=== PATIENT | female | born 1955 | race Caucasian/White ===

== ENCOUNTER 2018-12-21 08:51 | Inpatient (IN) | payer OTHER ==
[2018-12-20 10:06] LABS: BASOPHILS # (AUTO) 0.1 (0.0-0.1); BASOPHILS % 0.9 % (0.0-1.0); EOSINOPHILS # (AUTO) 0.2 (0.0-0.4); EOSINOPHILS % 1.8 % (0.0-6.0); HEMATOCRIT 43.9 % (34.2-44.1); HEMOGLOBIN 14.4 g/dL (12.0-16.0); LYMPHOCYTES # (AUTO) 2.6 (1.0-3.2); LYMPHOCYTES % 23.3 % (18.0-39.1); MEAN CORPUSCULAR HEMOGLOBIN 30.6 pg (28-32); MEAN CORPUSCULAR HGB CONC 32.8 g/dL (31-35); MEAN CORPUSCULAR VOLUME 93.2 fL (81-99); MONOCYTES # (AUTO) 0.5 (0.2-0.8); MONOCYTES % 4.9 % (4.4-11.3); NEUTROPHILS # (AUTO) 7.5 (2.1-6.9); NEUTROPHILS % 68.6 % (38.7-80.0); PLATELET COUNT 239 x10e3/uL (140-360); RED BLOOD COUNT 4.71 x10e6/uL (3.6-5.1); RED CELL DISTRIBUTION WIDTH 13.8 % (11.7-14.4)
[2018-12-20 10:25] LABS: ANION GAP 13.5 mmol/L (8-16); BLOOD UREA NITROGEN 18 mg/dL (7-26); BUN/CREATININE RATIO 21 (6-25); CALCIUM 10.8 mg/dL (8.4-10.2); CARBON DIOXIDE 27 mmol/L (22-29); CHLORIDE 103 mmol/L (98-107); CREATININE, SERUM 0.87 mg/dL (0.57-1.11); EST GLOMERULAR FILTRATION RATE > 60 ML/MIN (60-); GLUCOSE 110 mg/dL (74-118); POTASSIUM 4.5 mmol/L (3.5-5.1); SODIUM 139 mmol/L (136-145)
--- NOTE | 2018-12-20 10:35 | Diagnostic Imaging Report ---
EXAMINATION: CHEST 2 VIEWS INDICATION: Pre-op COMPARISON: None FINDINGS: TUBES and LINES: None. LUNGS: Lungs are moderately inflated. Lungs are clear. There is no evidence of pneumonia or pulmonary edema. PLEURA: No pleural effusion or pneumothorax. HEART AND MEDIASTINUM: The cardiomediastinal silhouette is unremarkable. There are atherosclerotic calcifications within the aorta. BONES AND SOFT TISSUES: No acute osseous abnormality. UPPER ABDOMEN: No free air under the diaphragm. IMPRESSION: No acute radiographic abnormality. Signed by: Dr. Vidal España MD on 12/20/2018 10:32 AM
[~2018-12-21] VITALS: Ht 165.1 cm; Wt 103.9 kg
[~2018-12-21 08:51] MED LIST: COQ-10100 MG PO; LOSARTAN POTAS100 MG PO; METFORMIN HCL500 MG PO; VITAMIN D31000 UNIT PO
--- OUTSIDE RECORDS SUMMARY | 2018-12-21 08:52 | XMS REPORT ---
Author Author [facility] Address Unknown Phone Unavailable Care Team Providers Care Zoning Engineer Name Role Phone Ky LEMON Unavailable Unavailable Problems This patient has no known problems. Allergies, Adverse Reactions, Alerts This patient has no known allergies or adverse reactions. Medications This patient has no known medications. Encounters Start Date/Time End Date/Time Encounter Type Admission Type Attending Clinicians Care Facility Care Department Encounter ID 2018-12-06 13:13:00 2018-12-06 13:13:00 Outpatient [facility] [id number] Results Test Description Test Time Test Comments Text Results Atomic Results Result Comments CHEST 2 VIEWS 2018-12-20 10:26:00 [place] [address] Patient Name: ANA PALMER MR #: [id number] : 1955 Age/Sex: 63/F Req #: [id number] Adm Physician: Ordered by: SHANNAN LEMON MD Report #: [id number] Location: OR Room/Bed: Procedure: [id number] DX/CHEST 2 VIEWS Exam Date: 12/20/18 Exam Time: 939 REPORT STATUS: Signed EXAMINATION: CHEST 2 VIEWS INDICATION: Pre-op COMPARISON: None FINDINGS: TUBES and LINES: None. LUNGS: Lungs are moderately inflated. Lungs are clear. There is no evidence of pneumonia or pulmonary edema. PLEURA: No pleural effusion or pneumothorax. HEART AND MEDIASTINUM: The cardiomediastinal silhouette is unremarkable. There are atherosclerotic calcifications within the aorta. BONES AND SOFT TISSUES: No acute osseous abnormality. UPPER ABDOMEN: No free air under the diaphragm. IMPRESSION: No acute radiographic abnormality. Signed by: Dr. Franchesca Gaytan MD on 12/20/2018 10:32 AM Dictated By: FRANCHESCA GAYTAN MD 1032 Transcribed By: MAYA on 12/20/18 1032 COPY TO: SHANNAN LEMON MD
[2018-12-21] MEDS ORDERED: TYLENOL EXTRA500 MG PF (09:27)
[2018-12-21] MEDS ORDERED: BUPIVACAINE 0.25%/EPI 30ML SDV INJ ONE (14:17)
[2018-12-21] MEDS ORDERED: PROPOFOL IV EMULSION 10 MG/ML 20 ML VIAL ONE (17:28)
[2018-12-21] MEDS ORDERED: ROCURONIUM BROMIDE 10 MG/ML 5ML VIAL ONE (17:28)
[2018-12-21] MEDS ORDERED: GLYCOPYRROLATE INJ 1MG/ 5 ML SYR ONE (17:28)
[2018-12-21] MEDS ORDERED: ACETAMINOPHEN 1000 MG/100 ML IV ONE (17:28)
[2018-12-21] MEDS ORDERED: KETOROLAC TROMETHAMINE 30 MG/ML VIAL ONE (17:28)
[2018-12-21] MEDS ORDERED: ONDANSETRON HCL INJ 2MG/ML 2ML 2 MG/ML VIAL ONE (17:28)
[2018-12-21] MEDS ORDERED: SEVOFLURANE INHAL SOLN 250 ML PEN BTL ONE (17:28)
[2018-12-21] MEDS ORDERED: LIDOCAINE HCL 2% LOCAL INJ 5 ML SDV VIAL INJ ONE (17:28)
[2018-12-21] MEDS ORDERED: NEOSTIGMINE 5 MG/5ML SYR ONE (17:28)
[2018-12-21] MEDS ORDERED: DEXAMETHASONE SOD PHOS INJ 4 MG/ML VIAL ONE (17:28)
[2018-12-21] MEDS ORDERED: ACETAMINOPHEN 1000 MG/100 ML 100 ML IV ONE (17:55)
[2018-12-21] MEDS ORDERED: SODIUM CHLORIDE 0.9% 1000ML 1,000 ML IV SCH (18:12)
[2018-12-21] MEDS ORDERED: ONDANSETRON HCL INJ 2MG/ML 2ML 2 MG/ML VIAL IV PRN ×2 (18:15)
[2018-12-21] MEDS ORDERED: NALOXONE HCL INJ 0.4 MG/ML AMP IV PRN ×2 (18:15→20:15)
[2018-12-21] MEDS ORDERED: ACETAMINOPHEN 1000 MG/100 ML IV PRN (18:15)
[2018-12-21] MEDS ORDERED: PANTOPRAZOLE 40 MG 10ML VIAL IV SCH (18:15)
[2018-12-21] MEDS ORDERED: HYDROMORPHONE 2MG/ML 2 MG/ML ML ONE (18:33)
[2018-12-21] MEDS ORDERED: HYDROMORPHONE 0.2MG/ML-SOD CHL 30ML PCA SYRINGE IV ONE (19:00)
--- NOTE | 2018-12-21 19:32 | NUR ---
RECEIVED PATIENT AAOX3, 2L/NC, RR EVEN AND UNLABORED. ABD DRSG C/D/I DIMA DRAIN INTACT, DRAINING. ABD BINDER IN PLACE. SCD'S ON. RIGHT HAND 20G IVF @ 100. SAWYER CORK SLABS PUMP, PAIN CONTROL BUTTON WITHIN EASY REACH. WADE DRAINING TO GRAVITY, CLEAR AND YELLOW URINE. BED LOCKED AND IN LOWEST POSITION, CALL LIGHT WITHIN EASY REACH. OR NURSE TO NOTIFY FAMILY OF PATIENT ROOM #. AT THIS TIME NO NEEDS VOICED. WILL CONTINUE TO MONITOR THE PATIENT CLOSELY.
[2018-12-21] MEDS ORDERED: ATIVAN0.5 MG PO (21:41)
[2018-12-21] MEDS: CEFAZOLIN SOD 1 GM/NS 50ML 50 ML IV SCH (21:45)
[2018-12-21] MEDS: SODIUM CHLORIDE 0.9% 1000ML 1,000 ML IV SCH (21:45)
[2018-12-21] MEDS: PANTOPRAZOLE 40 MG 10ML VIAL IV SCH (21:45)
[2018-12-21] MEDS: ONDANSETRON HCL INJ 2MG/ML 2ML 2 MG/ML VIAL IV PRN (21:46)
[2018-12-21 21:48] VITALS: BP 122/62
--- NOTE | 2018-12-21 23:20 | Operative Report ---
DATE OF PROCEDURE: 12/21/2018 SURGEON: Guilherme Hoskins MD PREOPERATIVE DIAGNOSIS: Large lower abdominal ventral hernia. POSTOPERATIVE DIAGNOSIS: Large lower abdominal ventral hernia. OPERATION PERFORMED: Exploratory laparotomy, extensive lysis of adhesions, repair of recurrent complex ventral hernia with mesh. SUPERVISOR BRIAR SHOP: COLLINS Toth. ANESTHESIA: General endotracheal. COMPLICATIONS: None. ESTIMATED BLOOD LOSS: 100 mL. DESCRIPTION OF PROCEDURE: With the patient lying in bed in the supine position under good general endotracheal anesthesia, the abdomen was prepped with Betadine solution and draped in the usual manner. A lower midline abdominal incision was made and it was carried down through the subcutaneous tissue and immediately some scarring was found at the midline for the patient's previous surgeries. There was a large bulging hernia on the right side. There were multiple defects extending from the midline all the way laterally encompassing the whole length of the right side of the Pfannenstiel incision. The fascia was then dissected all the way around all the defects in a circumferential fascia and normal fascia was identified all the way around. After this was done, the largest of the hernia sacs was opened and this was totally plastered inside with the bowel and adhesions to the abdominal wall. This took over an hour to slowly and carefully be able to separate all the bowel from the abdominal wall and the hernia sac. There was also a lot of intraabdominal adhesions with the bowel being stuck to the bladder and we had to free up this whole thing in noted to be able to do the repair of the hernia. Although the bowel was slowly and carefully and once this was done, we had circumferential access intraabdominally and also the abdominal wall level. We were able to clearly see the whole right side of the right lower quadrant and it was totally blown down. The patient's fascia was totally attenuated all the way around with the upper abdominal fascia being extremely thin. We decided that the only way to repair this would be to put an intraabdominal mesh as there was no other way to reinforce the fascia. Primary closure would be a total failure as the tissues were extremely thinned out. At this point, a 12 x 15 cm Physiomesh was then placed intraabdominally and tacked with the six corners with #1 Prolene suture to totally anchor it to the full thickness of the abdominal wall all the way around and we were very careful to stay away from the bowel and the bladder. After this was done, the Tacker was used to finish tacking the skirt of the mesh all the way around and once this was completed, the abdominal wall was then approximated primarily with a running suture of #1 Prolene thus closing the defect completely. The whole area was thoroughly irrigated. Perfect hemostasis was ascertained and a 10 flat Jovanni-Hudson drain was then brought out through the left lower quadrant incision to drain the cavity of the subcutaneous tissue and the subcutaneous tissue was then approximated with interrupted sutures of 2-0 Vicryl and the skin was closed with interrupted vertical mattress sutures of 3-0 nylon and gabino. Dressings were applied. The sponge, lap, and needle count was correct. The patient tolerated the procedure well and returned to the recovery room in stable condition. MD WINNIE Garnett/ANISH /[id number]
[2018-12-21 23:23] VITALS: BP 122/62
[2018-12-22] VITALS (8 sets, daily range): BP systolic 101–142; BP diastolic 54–65
[2018-12-22] MEDS ORDERED: INSULIN REGULAR, HUMAN 100 UNIT/1 ML 3ML VIAL SQ SCH
[2018-12-22] MEDS: ONDANSETRON HCL INJ 2MG/ML 2ML 2 MG/ML VIAL IV PRN ×3 (04:53→14:40)
[2018-12-22 05:26] LABS: BASOPHILS % 0.2 % (0.0-1.0); EOSINOPHILS % 0.1 % (0.0-6.0); HEMATOCRIT 38.8 % (34.2-44.1); HEMOGLOBIN 12.7 g/dL (12.0-16.0); LYMPHOCYTES # (AUTO) 1.7 (1.0-3.2); LYMPHOCYTES % 10.3 % (18.0-39.1); MEAN CORPUSCULAR HEMOGLOBIN 30.5 pg (28-32); MEAN CORPUSCULAR HGB CONC 32.7 g/dL (31-35); MONOCYTES # (AUTO) 1.1 (0.2-0.8); MONOCYTES % 6.7 % (4.4-11.3); NEUTROPHILS # (AUTO) 13.7 (2.1-6.9); NEUTROPHILS % 82.3 % (38.7-80.0); PLATELET COUNT 263 x10e3/uL (140-360); RED BLOOD COUNT 4.17 x10e6/uL (3.6-5.1); RED CELL DISTRIBUTION WIDTH 13.6 % (11.7-14.4)
[2018-12-22 05:44] LABS: ANION GAP 14.8 mmol/L (8-16); BLOOD UREA NITROGEN 19 mg/dL (7-26); BUN/CREATININE RATIO 22 (6-25); CALCIUM 8.7 mg/dL (8.4-10.2); CARBON DIOXIDE 24 mmol/L (22-29); CHLORIDE 103 mmol/L (98-107); CREATININE, SERUM 0.87 mg/dL (0.57-1.11); EST GLOMERULAR FILTRATION RATE > 60 ML/MIN (60-); GLUCOSE 137 mg/dL (74-118); POTASSIUM 4.8 mmol/L (3.5-5.1); SODIUM 137 mmol/L (136-145)
[2018-12-22] MEDS: INSULIN REGULAR, HUMAN 100 UNIT/1 ML 3ML VIAL SQ SCH ×4 (06:00→18:00)
[2018-12-22] MEDS: CEFAZOLIN SOD 1 GM/NS 50ML 50 ML IV SCH (06:15)
[2018-12-22] MEDS: SODIUM CHLORIDE 0.9% 1000ML 1,000 ML IV SCH ×2 (06:15→16:45)
[2018-12-22] MEDS: HYDROMORPHONE 0.2MG/ML-SOD CHL 30ML PCA SYRINGE IV PRN ×2 (06:15→19:26)
--- NOTE | 2018-12-22 07:00 | NUR ---
bedside rounds complete no distress noted, updated on poc voiced understanding, denies pain at this time, phlebotomy specialist on demand tor hand 20g, dsg to abdomen with binder in place, jing drain with serous fluid noted, call light in reach will continue to monitor
--- OUTSIDE RECORDS SUMMARY | 2018-12-22 09:09 | XMS REPORT | Continuity of Care Document ---
Author Author [facility] Interface Address Unknown Phone Unavailable Problems Problem Status Onset Date Classification Date Reported Comments Source PAIN TO LEFT UPPER ARM Active 12/06/2018 [facility] VOMITING, DIARRHEA, ABDOMINAL PAIN, ABNO Active 11/23/2018 [facility] SMALL BOWEL OBSTRUCTION, HERNIA, VENTRAL Active 11/23/2018 [facility] PAIN LEFT SIDE Active 07/16/2018 [facility] E78.00 Active 06/12/2017 [facility] Discharge Diagnosis: Ureterolithiasis 03/29/2017 04/01/2017 [facility] Discharge Diagnosis: Frequency-urgency syndrome 03/29/2017 04/01/2017 [facility] R10.84;K43.9;K80.20 Active 03/01/2017 [facility] R10.11 RIGHT UPPER QUADRANT PAIN Active 10/14/2016 [facility] R10.11 RUQ PAIN, R10.13 EPIGASTRIC PAIN Active 09/09/2016 [facility] R10.11,R10.13 Active 09/09/2016 [facility] ABDOMINAL WALL MASS Active 03/10/2015 [facility] V72.84 PRE-OPERATIVE EXAM 401.1 HYPERTEN Active 01/01/2014 [facility] Hypercholesterolemia Active Problem 12/04/2018 [facility] Family history of heart disease Active Problem 12/04/2018 [facility] Type 2 diabetes mellitus with hyperglycemia, without long-term current use of insulin Active Problem 12/04/2018 [facility] Mild major depression Active Problem 12/04/2018 [facility] Psychological stress Active Problem 12/04/2018 [facility] Abdominal wall hernia Active Problem 12/04/2018 [facility] Cholelithiasis without cholangitis Active Problem 06/06/2017 [facility] Essential hypertension Active Problem 12/04/2018 [facility] Fatty liver disease, nonalcoholic Active Problem 12/04/2018 [facility] Symptomatic varicose veins, bilateral Active Problem 12/04/2018 [facility] Non morbid obesity due to excess calories Active Problem 12/04/2018 [facility] Chronic cough Active Diagnosis 02/07/2017 [facility] Dysfunctional gallbladder Active Diagnosis 02/07/2017 [facility] Type 2 diabetes mellitus without complication, without long-term current use of insulin Active Problem 02/28/2018 [facility] Symptomatic varicose veins of both lower extremities Active Problem 02/28/2018 [facility] Generalized abdominal pain Active Diagnosis 03/03/2017 [facility] BMI 38.0-38.9,adult Active Diagnosis 08/28/2018 [facility] Seborrheic keratosis Active Diagnosis 08/28/2018 [facility] Vaccine counseling Active Diagnosis 08/28/2018 [facility] BMI 39.0-39.9,adult Active Diagnosis 09/09/2017 [facility] Nasopharyngitis Active Diagnosis 04/01/2017 [facility] Cough Active Diagnosis 04/01/2017 [facility] Obesity Unspecified Active Problem 09/05/2014 [facility] Dyslipidemia Active Problem 09/05/2014 [facility] Hypertension Active Problem 09/05/2014 [facility] Prediabetes Active Diagnosis 09/21/2013 [facility] Morbid obesity due to excess calories Active Problem 03/16/2018 [facility] Deficiency D Active Problem 09/05/2014 [facility] Family History Diabetes Active Problem 09/05/2014 [facility] Diabetes Controlled, Type 2 Active Problem 09/05/2014 [facility] Family History of Heart Disease Active Problem 09/05/2014 [facility] Abdominal Pain, Lower LT Active Diagnosis 03/12/2013 [facility] Fatty Liver Active Problem 09/05/2014 [facility] Vitamin D deficiency Active Diagnosis 03/26/2014 [facility] Noncompliance Active Diagnosis 09/04/2014 [facility] Physical, Preoperative Unspecified Active Diagnosis 09/21/2013 [facility] BMI 38.0-38.9,adult Active Diagnosis 03/07/2014 [facility] Foot callus Active Diagnosis 03/07/2014 [facility] Pre-operative examination Active Diagnosis 01/03/2014 [facility] BMI 39.0-39.9,adult Active Diagnosis 01/03/2014 [facility] Diabetes mellitus, controlled Active Diagnosis 01/28/2016 [facility] Coronadol[facility] Hypercholesterolemia Active Diagnosis 09/01/2016 [facility] [place] Morbid obesity Active Problem 01/13/2016 [facility] Family history of diabetes mellitus Active Problem 01/13/2016 [facility] Depression Active Problem 09/11/2016 [facility] H/O noncompliance with medical treatment, presenting hazards to health Active Diagnosis 06/16/2015 [facility] Diabetes mellitus with hyperglycemia Active Problem 09/11/2016 [facility] Glossitis Active Diagnosis 01/13/2016 [facility] [place] Suprapubic pain Active Diagnosis 11/26/2015 [facility] [place] LLQ abdominal pain Active Diagnosis 11/26/2015 [facility] Mic [place] Pharyngitis Active Diagnosis 12/22/2015 [facility] Mick[facility] Muscle spasm Active Diagnosis 03/29/2016 [facility] Mick[facility] Acute UTI Active Diagnosis 03/29/2016 [facility] Mic [place] Back pain Active Diagnosis 03/29/2016 [facility] [place] Anxiety Active Diagnosis 03/29/2016 [facility] [place] Pure hypercholesterolemia Active Problem 09/11/2016 [facility] [place] Midepigastric pain Active Diagnosis 09/10/2016 [facility] Ha[facility] [place] RUQ pain Active Diagnosis 09/10/2016 [facility] Ha[facility] [place] RUQ abdominal pain Active Diagnosis 10/15/2016 [facility] Mci [place] Periumbilical pain Active Diagnosis 11/29/2018 [facility] Mickatherine [facility] Abdominal cramping Active Diagnosis 11/29/2018 [facility] Haile [place] Hypertension Resolved Problem 12/09/2018 [facility] Diabetes Resolved Problem 12/09/2018 [facility] IBS (<span ID="[id number]</span>) Resolved Problem 12/09/2018 [facility] Morbid obesity Active Problem 12/09/2018 [facility] EPIGASTRIC PAIN Active [facility] RIGHT UPPER QUADRANT PAIN Active [facility] PURE HYPERCHOLESTEROLEMIA, UNSPECIFIED Active [facility] GENERALIZED ABDOMINAL PAIN Active [facility] VENTRAL HERNIA WITHOUT OBSTRUCTION OR GA Active [facility] CALCULUS OF GALLBLADDER W/O CHOLECYSTITI Active [facility] UNSP INTESTNL OBST, UNSP TO PARTIAL V Active [facility] PAIN IN LEFT UPPER ARM Active [facility] Medications Medication Details Route Status Patient Instructions Ordering Provider Order Date Source phenol 1 spray, Route: TOP, BID, Drug form: SPRY, PRN Sore Throat, Start date: 11/24/18 15:23:00 CDT, Duration: 5 day, Stop date: 11/29/18 15:22:00 CDTNotes: Chloraseptic [place] (Same as: Chloraseptic, Sore Throat [place]) WASTE: F/P - Black; E - Municipal Trash Bin No Longer Active 11/24/2018 [facility] Ativan 0.5 mg, 0.25 mL, Route: IVP, Drug form: INJ, ONCE, Dosing Weight 76.364, kg, PRN Anxiety, Start date: 11/24/18 11:15:00 CDTNotes: (Same as: Ativan) Inactive 11/24/2018 [facility] Insulin Lispro 5 unit, 0.05 mL, Route: SUB-Q, Drug form: SOLN, TID-Before Meals, Dosing Weight 76.364, kg, PRN Blood Glucose Results, Start date: 11/24/18 9:38:00 CDT, Duration: 30 day, Stop date: 12/24/18 9:37:00 CDTNotes: (Same as: Humalog ) Roll in palms of hands gently; Do not shake `vigorously. "Single Patient Use Only " WASTE: F/P - Black; E - Municipal Trash Bin Stable for 28 days at room temperature. Expires in days from Date No Longer Active 11/24/2018 [facility] Dextrose 50% Syringe 25 gm, 50 mL, Route: IVP, Drug Form: INJ, Dosing Weight 76.364, kg, PRN, PRN Blood Glucose Results, Start date: 11/24/18 9:38:00 CDT, Duration: 30 day, Stop date: 12/24/18 9:37:00 CDT No Longer Active 11/24/2018 [facility] Glucagon 1 mg, Route: IM, Drug form: PDR/INJ, PRN, Dosing Weight 76.364, kg, PRN Blood Glucose Results, Start date: 11/24/18 9:38:00 CDT, Duration: 30 day, Stop date: 12/24/18 9:37:00 CDT No Longer Active 11/24/2018 [facility] D5LR 1,000 mL 1,000 mL, Rate: 75 ml/hr, Infuse over: 13.3 hr, Route: IV, Dosing Weight 76.364 kg, Total Volume: 1,000, Start date: 11/24/18 9:33:00 CDT, Duration: 30 day, Stop date: 12/24/18 9:32:00 CDT, 1.88, m2 No Longer Active 11/24/2018 [facility] Pepcid 20 mg, 2 mL, Route: IVPB, Drug form: INJ, Q12H, Dosing Weight 76.364, kg, Start date: 11/24/18 9:00:00 CDT, Duration: 5 day, Stop date: 11/28/18 21:00:00 CDTNotes: (Same as: Pepcid) Can be dilute in 5-10cc NS IVP: Slow IV push over at least 2 minutes. No Longer Active 11/24/2018 [facility] Dextrose 50% Syringe 12.5 gm, 25 mL, Route: IVP, Drug Form: INJ, Dosing Weight 76.364, kg, PRN, PRN Blood Glucose Results, Start date: 11/23/18 21:54:00 CDT, Duration: 30 day, Stop date: 12/23/18 21:53:00 CDT No Longer Active 11/24/2018 [facility] Acetaminophen 650 mg, 2 tab, Route: PO, Drug form: TAB, Q4H, Dosing Weight 76.364, kg, PRN Pain 1-3/Temp > 100.4 F, Start date: 11/23/18 21:54:00 CDT, Duration: 30 day, Stop date: 12/23/18 21:53:00 CDTNotes: Do not exceed 4 gm/day. (Same as: Tylenol) No Longer Active 11/24/2018 [facility] Ondansetron 4 mg, 2 mL, Route: IVP, Drug form: INJ, Q8H, Dosing Weight 76.364, kg, PRN Nausea & Vomiting, Start date: 11/23/18 21:54:00 CDT, Duration: 30 day, Stop date: 12/23/18 21:53:00 CDTNotes: (Same as: Ivana) MEDICATION WASTE Product Size: 4 mg Product Wasted: ___ mg No Longer Active 11/24/2018 [facility] Glucagon 1 mg, Route: IM, Drug form: PDR/INJ, PRN, Dosing Weight 76.364, kg, PRN Blood Glucose Results, Start date: 11/23/18 21:54:00 CDT, Duration: 30 day, Stop date: 12/23/18 21:53:00 CDT No Longer Active 11/24/2018 [facility] potassium phosphate-sodium phosphate 250 mg-280 mg-160 mg oral powder for reconstitution 2 pkt, Route: PO, Drug Form: PDR/REC, Dosing Weight 76.364, kg, PRN, PRN Abnormal Lab Result, For NON-ICU Patients Only, Start date: 11/23/18 21:53:00 CDT, Duration: 30 day, Stop date: 12/23/18 21:52:00 CDTNotes: (Same as: Phos-NaK) Each 1.5 gm pkt has 250mg phosphorous. Mix w/2.5oz water and stir. No Longer Active 11/24/2018 [facility] potassium phosphate 15 mmol, 5 mL, Route: IVPB, PRN, Dosing Weight 76.364, kg, PRN Abnormal Lab Result, For NON-ICU Patients Only., Start date: 11/23/18 21:53:00 CDT, Duration: 30 day, Stop date: 12/23/18 21:52:00 CDTNotes: (Same as: K Phosphate.) Do not infuse phosphorous concurrently in the same line as TPN or IVF that contains calcium. For double lumen central lines, phosphorous may be infused in a separate lumen from TPN. 1 mMol phoshate has 1.47 mEq potassium Infuse over 4 hours No Longer Active 11/24/2018 [facility] Magnesium Sulfate 1 gm, 100 mL, Route: IVPB, Drug form: INJ, PRN, Dosing Weight 76.364, kg, PRN Abnormal Lab Result, For NON-ICU Patients Only., Start date: 11/23/18 21:53:00 CDT, Duration: 30 day, Stop date: 12/23/18 21:52:00 CDTNotes: WASTE: F/P - Sink; E - Municipal Trash Bin No Longer Active 11/24/2018 [facility] Potassium Chloride 20 mEq, 1 tab, Route: PO, Drug form: ERTAB, PRN, Dosing Weight 76.364, kg, PRN Abnormal Lab Result, For NON-ICU Patients Only, Start date: 11/23/18 21:53:00 CDT, Duration: 30 day, Stop date: 12/23/18 21:52:00 CDTNotes: (Same as: K-Dur 20) "Do Not Crush" Give with food and full glass of water For patients unable to swallow tablet, dissolve in one half glass of water. Allow about 2 minutes for the tablets to disintegrate. Stir before giving to prepare slurry and administer. Please exclude Patients with feeding tube less than 14 Mal[place] (Dobhoff, J-tube etc) and pediatric and patients. No Longer Active 11/24/2018 [facility] sodium phosphate 15 mmol, 5 mL, Route: IVPB, PRN, Dosing Weight 76.364, kg, PRN Abnormal Lab Result, For NON-ICU Patients Only., Start date: 11/23/18 21:53:00 CDT, Duration: 30 day, Stop date: 12/23/18 21:52:00 CDTNotes: Infuse over 4 hour. Do not infuse phosphorous concurrently in the same line as TPN or IVF that contains calcium. For double lumen central lines, phosphorous may be infused in a separate lumen from TPN. No Longer Active 11/24/2018 [facility] Calcium Gluconate 3 gm, 30 mL, Route: IVPB, PRN, Dosing Weight 76.364, kg, PRN Abnormal Lab Result, For NON-ICU Patients Only., Start date: 11/23/18 21:53:00 CDT, Duration: 30 day, Stop date: 12/23/18 21:52:00 CDTNotes: WASTE: F/P - Sink; E - Municipal Trash Bin No Longer Active 11/24/2018 [facility] Magnesium Oxide 800 mg, 2 tab, Route: PO, Drug form: TAB, PRN, Dosing Weight 76.364, kg, PRN Abnormal Lab Result, For NON-ICU Patients Only., Start date: 11/23/18 21:53:00 CDT, Duration: 30 day, Stop date: 12/23/18 21:52:00 CDTNotes: (Same as: Mag-Ox 400) Magnesium oxide [id number] elemental magnesium Dose=____mg magnesium oxide (___mg elemental magnesium) No Longer Active 11/24/2018 [facility] Omnipaque 300 100 mL, Route: IV, Drug Form: SOLN, Dosing Weight 76.364, kg, ONCE, Start date: 11/23/18 20:00:00 CDT, Stop date: 11/23/18 20:00:00 CDTNotes: (Same as:Omnipaque 300). WASTE: F/P - Black; E - Municipal Trash Bin Inactive 11/24/2018 [facility] Ondansetron 4 mg, 2 mL, Route: IVP, Drug form: INJ, ONCE, Dosing Weight 76.364, kg, Priority: STAT, Start date: 11/23/18 18:41:00 CDT, Stop date: 11/23/18 18:41:00 CDTNotes: (Same as: Ivana) MEDICATION WASTE Product Size: 4 mg Product Wasted: ___ mg Inactive 11/23/2018 [facility] Morphine 4 mg, 1 mL, Route: IVP, Drug form: SOLN, ONCE, Dosing Weight 76.364, kg, Priority: STAT, Start date: 11/23/18 18:41:00 CDT, Stop date: 11/23/18 18:41:00 CDTNotes: (Same as:MORPhine Sulfate) Inactive 11/23/2018 [facility] Ondansetron 4 mg, 2 mL, Route: IVP, Drug form: INJ, ONCE, Dosing Weight 95.909, kg, Priority: STAT, Start date: 11/23/18 16:38:00 CDT, Stop date: 11/23/18 16:38:00 CDTNotes: (Same as: Zofran) MEDICATION WASTE Product Size: 4 mg Product Wasted: ___ mg Inactive 11/23/2018 [facility] Saline Flush 0.9% 10 mL, Route: IVP, Drug Form: INJ, Dosing Weight 95.909, kg, PRN, PRN Line Flush, Start date: 11/23/18 16:38:00 CDT, Duration: 30 day, Stop date: 12/23/18 16:37:00 CDTNotes: (Same as: BD Posiflush) No Longer Active 11/23/2018 [facility] Sodium Chloride 0.9% (Bolus) IV 1,000 mL, 1000 ml/hr, Infuse Over: 1 hr, Route: IV, 1,000, Drug form: INJ, ONCE, Priority: STAT, Dosing Weight 95.909 kg, Start date: 11/23/18 16:38:00 CDT, Stop date: 11/23/18 16:38:00 CDT Inactive 11/23/2018 [facility] Atorvastatin Calcium 1 tablet Orally Active 20 mg Orally Once a day [place] 03/08/2018 [facility] GlipiZIDE XL 1 tablet Orally Active 5 MG Orally Once a day [place] 09/13/2017 [facility] GlipiZIDE XL 1 tablet Orally Active 10 MG Orally Once a day [place] 09/13/2017 [facility] Atorvastatin Calcium 1 tablet Orally Active 20 MG Orally Once a day [place] 05/31/2017 [facility] Bromfed DM 5-10ml Orally Active 30-2-10 MG/5ML Orally every 6 hrs prn cough and congestion [place] 03/30/2017 [facility] tramadol hydrochloride 50 MG Oral Tablet 50 mg, PO, Q4- 6H, PRN Pain, X 4 day, # 20 tab, 0 Refill(s) Active 03/29/2017 [facility] Ciprofloxacin 500 MG Oral Tablet [Cipro] 500 mg=1 tab, PO, BID, # 14 tab, 0 Refill(s) Inactive 03/29/2017 [facility] Ondansetron 4 mg, 2 mL, Route: IVP, Drug form: INJ, ONCE, Dosing Weight 100, kg, Priority: STAT, Start date: 03/28/17 22:02:00 CDT, Stop date: 03/28/17 22:02:00 CDTNotes: (Same as: Ivana) MEDICATION WASTE Product Size: 4 mg Product Wasted: ___ mg Inactive 03/29/2017 [facility] Morphine 4 mg, 1 mL, Route: IVP, Drug form: INJ, ONCE, Dosing Weight 100, kg, Priority: STAT, Start date: 03/28/17 22:02:00 CDT, Stop date: 03/28/17 22:02:00 CDTNotes: (Same as:MORPhine Sulfate) Inactive 03/29/2017 [facility] Saline Flush 0.9% 10 mL, Route: IVP, Drug Form: INJ, Dosing Weight 100, kg, PRN, PRN Line Flush, Start date: 03/28/17 21:30:00 CDT, Duration: 30 day, Stop date: 04/27/17 21:29:00 CDTNotes: Same as: BD Posiflush Sterile No Longer Active 03/29/2017 [facility] Pyridium 100 mg, 0.5 tab, Route: PO, Drug form: TAB, ONCE, Dosing Weight 100, kg, Priority: STAT, Start date: 03/28/17 21:30:00 CDT, Stop date: 03/28/17 21:30:00 CDTNotes: Give with meals. (Same as: Pyridium) Inactive 03/29/2017 [facility] Cipro 1 tablet Orally Active 500 MG Orally Twice a day [place] 03/02/2017 [facility] Flagyl 1 tablet Orally Active 500 MG Orally twice a day (bid) [facility] 03/02/2017 [facility] Levsin/SL 1 tablet under the tongue and allow to dissolve before meals as needed Sublingual Active 0.125 MG Sublingual every 4 hrs [place] 02/10/2017 [facility] Lomotil 1 tablet as needed Orally Active 2.5-0.025 MG Orally Every four hours [place] 02/10/2017 [facility] Lexapro 1 tablet Orally Active 10 MG Orally Once a day prn [facility] 02/03/2017 [facility] Tamiflu 1 capsule Orally Active 75 MG Orally Twice a day [place] 10/31/2016 [facility] Metronidazole 1 tablet Orally Active 500 MG Orally Twice a day [place] 09/10/2016 [facility] Cipro 1 tablet Orally Active 500 MG Orally Twice a day [place] 09/10/2016 [facility] Lorazepam 1 tablet Orally Active 0.5 MG Orally once a day [place] 03/25/2016 [facility] Lorazepam 1 tablet Orally Active 0.5 MG Orally once a day prn [place] 03/25/2016 [facility] Lorazepam 1 tablet Orally Active 0.5 MG Orally once a day [place] 03/25/2016 [facility] Lorazepam 1 tablet Orally Active 0.5 MG Orally once a day [place] 03/25/2016 [facility] Cipro 1 tablet Orally Active 250 MG Orally every 12 hrs [place] 03/25/2016 [facility] Ibuprofen 1 tablet Orally Active 800 MG Orally Three times a day for back [place] 03/25/2016 [facility] Flexeril 1 tablet Orally Active 5 MG Orally Three times a day prn muscle spasm [place] 03/25/2016 [facility] Atorvastatin Calcium 1 tablet Orally Active 10 mg Orally Once a day [place] 02/17/2016 [facility] Etodolac 1 tablet Orally Active 400 MG Orally Twice a day prn back pain [place] 01/26/2016 [facility] Etodolac 1 tablet Orally Active 400 MG Orally Twice a day prn back pain [place] 01/26/2016 [facility] Mycostatin 5 ml Mouth/Throat-swish and swallow Active 674020 UNIT/ML Mouth/Throat-swish and swallow four times a day (qid) [facility] 12/18/2015 [facility]o Cipro 1 tablet Orally Active 500 mg Orally Twice a day [place] 11/24/2015 [facility] Diezin [place] Flagyl 1 tablet Orally Active 500 mg Orally twice a day (bid) [facility] 11/24/2015 [facility] Diezin [place] Metformin HCl 2 tablets Orally Active 1000 mg Orally once a day [place] 06/15/2015 [facility] Mic [facility] Metformin HCl 2 tablets Orally Active 1000 mg Orally once a day [place] 06/15/2015 [facility] Mic [place] Losartan Potassium 1 tablet Orally Active 100 mg Orally Once a day [place] 06/15/2015 [facility] [place] Atorvastatin Calcium 1 tablet Orally Active 10 mg Orally Once a day [place] 06/15/2015 [facility] [place] Toprol XL 1 tablet Orally Active 50 mg Orally Once a day [facility] 06/01/2015 [facility] Omnipaque 300 100 mL, Route: IV, Drug Form: FIGUEROA MCALLISTER, Start date: 03/19/15 11:00:00, Duration: 1 day, Stop date: 03/20/15 10:59:00Notes: (Same as:Omnipaque 300). Inactive 03/19/2015 [facility] Atorvastatin Calcium 1 tablet Orally Active 20 mg Orally Once a day [place] 03/10/2014 [facility] Aspirin 1 tablet Orally Active 81 MG Orally Once a day [place] 03/06/2014 [facility] Metformin HCl 1 tablet Orally Active 1000 mg Orally once a day [place] 09/20/2013 [facility] Atorvastatin Calcium 1 tablet Orally Active 10 mg Orally Once a day [place] 09/20/2013 [facility] Vitamin D 1 tablet Orally Active 1000 UNIT Orally Once a day [place] 09/20/2013 [facility] Toprol XL 1 tablet Orally Active 50 mg Orally Once a day [place] 09/19/2013 [facility] Vitamin D 2 tablets Orally Active 1000 UNIT Orally Once a day [place] 03/11/2013 [facility] Pravastatin Sodium 1 tablet Orally Active 20 mg Orally Once a day [place] 03/11/2013 [facility] Vitamin D 1 tablet Orally Active 1000 UNIT Orally Once a day [place] [facility] Haile [place] Co Q 10 1 capsule with a meal Orally Active 60 MG Orally Once a day [place] [facility] [place]woodo Losartan Potassium 1 tablet Orally Active 100 mg Orally Once a day [place] Amrit Haile [place] Co Q 10 1 capsule with a meal Orally Active 100 MG Orally Once a day [place] Am[facility] Coronadolio Vitamin D 1 tablet Orally Active 2000 UNIT Orally Once a day [place] [facility] [place]o Cipro 1 tablet Orally Active 500 MG Orally Twice a day [place] [facility] [place] Norvasc 1 tablet Orally Active 5 MG Orally Once a day [place] Amrit Coronadolio Ativan 1 tablet at bedtime as needed Orally Active 0.5 MG Orally prn [place] Amrit Coronadolio Losartan Potassium 1 tablet Orally No Longer Active 50 mg Orally Once a day [place] [facility] Aspirin 1 tablet Orally Active 81 MG Orally Once a day [place] [facility] Align 1 capsule Orally Active 4 mg Orally once a day [place] Amrit vIory Dexilant 1 capsule Orally Active 60 MG Orally Once a day [place] [facility] Dicyclomine HCl 1 tablet Orally Active 20 mg Orally three times a day (tid) as needed [place] [facility] Allergies, Adverse Reactions, Alerts Substance Category Reaction Severity Reaction type Status Date Reported Comments Source Sulfur Adverse Reaction Info Not Available Adverse Reaction Active 11/28/2018 [facility] Lisinopril Adverse Reaction cough Adverse Reaction Active 11/28/2018 [facility] sulfa drugs Assertion Drug allergy Active [facility] Immunizations Immunization Date Given Site Status Last Updated Comments Source Toradol/15mg 03/25/2016 completed [facility] Results Order Name Results Value Reference Range Date Interpretation Comments Source Humerus 2 views DX Humerus 2 views DX Exam: Left Humerus 2 views DX Clinical Indication: M79.622 Pain in left upper arm - M79.622 Pain in left upper arm. No reported history of injury. Comparison: None. FINDINGS: The 2 views of the humerus show normal alignment without fractures or dislocations. The visualized shoulder and elbow joints are unremarkable for acute pathology. Mild degenerative changes appreciated in the left acromioclavicular joint. A few 3 to 4 mm dystrophic calcifications seen projecting over the left humeral head. Nonspecific 3 mm well-corticated ossific density projecting just posterior to the distal humeral epicondyle/condyle region. There is no soft tissue swelling or radiopaque foreign bodies. If there is further concern, recommend follow-up radiographs or bone scan for complete assessment. IMPRESSION: 1. No radiographic evidence of acute fractures or dislocation of the left humerus. 2. A few 3 to 4 mm dystrophic calcifications projecting over the left humeral head, suggestive of calcific peritendinitis. 3. Nonspecific 3 mm well-corticated ossific density projecting just posterior to the distal humeral epicondyle/condyle region, which may relate to a remote chip fracture fragment. 4. Mild degenerative changes in the left acromioclavicular joint. SL: WR4-M 12/06/2018 - - Read by: Rachid Leblanc DO Dictated Date/time: 12/06/18 14:06 Electronically Signed by: Rachid Leblanc DO 12/06/18 14:11 FINAL REPORT [facility] CHEM PANEL Procalcitonin Lvl <0.05 ng/mL 0.00 - 0.10 11/24/2018 [facility] HEMATOLOGY MCHC 33.4 g/dL 32.0 - 36.0 11/24/2018 [facility] HEMATOLOGY MCV 93.9 fL 80.0 - 98.0 11/24/2018 [facility] HEMATOLOGY RDW 14.1 % 11.5 - 14.5 11/24/2018 [facility] HEMATOLOGY MCH 31.4 pg 27.0 - 31.0 11/24/2018 [facility] HEMATOLOGY Hct 43.1 % 36.0 - 48.0 11/24/2018 [facility] HEMATOLOGY MPV 8.9 fL 7.4 - 10.4 11/24/2018 [facility] HEMATOLOGY Platelet 251 K/CMM 133 - 450 11/24/2018 [facility] HEMATOLOGY Hgb 14.4 g/dL 12.0 - 16.0 11/24/2018 [facility] HEMATOLOGY WBC 10.1 K/CMM 3.7 - 10.4 11/24/2018 [facility] HEMATOLOGY RBC 4.60 M/CMM 4.20 - 5.40 11/24/2018 [facility] HEMATOLOGY Monocytes # 0.5 K/CMM 0.0 - 0.8 11/24/2018 [facility] HEMATOLOGY Neutrophils # 7.4 K/CMM 1.5 - 8.1 11/24/2018 [facility] HEMATOLOGY Basophils # 0.1 K/CMM 0.0 - 0.2 11/24/2018 [facility] HEMATOLOGY Eosinophils # 0.2 K/CMM 0.0 - 0.5 11/24/2018 [facility] HEMATOLOGY Lymphocytes # 2.0 K/CMM 1.0 - 5.5 11/24/2018 [facility] HEMATOLOGY Monocytes 5.1 % 2.0 - 12.0 11/24/2018 [facility] HEMATOLOGY Lymphocytes 19.8 % 20.0 - 40.0 11/24/2018 [facility] HEMATOLOGY Segs 72.7 % 45.0 - 75.0 11/24/2018 [facility] HEMATOLOGY Basophils 0.8 % 0.0 - 1.0 11/24/2018 [facility] HEMATOLOGY Eosinophils 1.6 % 0.0 - 4.0 11/24/2018 [facility] Abdomen 1 v for Placement DX Abdomen 1 v for Placement DX STUDY: Abdomen 1 v for Placement DX 11/24/2018 12:57 CDT Ordering Physician: Faustino Camejo DO Patient Name: ANA PALMER MR: [id number] : 1955; Age: 63 years y/o Female Clinical Indication: - NG tube placement Comparison: 11/24/2018. Bowel gas: The lower pelvis is excluded from view. A nonspecific bowel gas pattern is present with scattered gas and stool the colon and scattered gas in the central small bowel. The nasogastric tube tip overlies the mid gastric body. General: No organomegaly, mass lesions, or suspicious abnormal calcifications. Lung bases: No significant abnormality. Osseous structures: No fracture, dislocation, or suspicious focal osseous lesion. IMPRESSION: 1. Nonspecific bowel gas pattern with nasogastric tube tip overlying the mid gastric body. SL: [id number] 11/24/2018 - - Read by: David Cole MD Dictated Date/time: 11/24/18 14:24 Electronically Signed by: David Cole MD 11/24/18 14:26 FINAL REPORT [facility] Abdomen AP DX Abdomen AP DX Exam: Abdomen AP DX Clinical Indication: Small bowel obstruction. Comparison: CT abdomen and pelvis 11/23/2017 and abdomen radiograph 03/01/2017. FINDINGS: AP supine view of the abdomen is performed. Mild gaseous distended small bowel loops in the right mid abdomen is relatively unchanged since CT exam from prior day given differences in modality. Gas is scattered throughout nondilated colon. No suspicious calcifications noted. No radiopaque foreign body identified. Excreted contrast is present in the urinary bladder. No acute osseous abnormalities noted. IMPRESSION: Persisting mild gaseous distended small bowel loops in the right midabdomen, relatively unchanged since CT exam from prior day. SL: [id number] 11/24/2018 - - Read by: Mark Cook MD Dictated Date/time: 11/24/18 09:37 Electronically Signed by: Mark Cook MD 11/24/18 09:40 FINAL REPORT [facility] URINE AND STOOL UA RBC 3 /HPF 0 - 2 11/23/2018 [facility] URINE AND STOOL UA Mucus Few /LPF None Seen /LPF 11/23/2018 [facility] URINE AND STOOL UA Sq Epi Occasional /LPF Few /LPF 11/23/2018 [facility] URINE AND STOOL UA WBC 17 /HPF 0 - 5 11/23/2018 [facility] URINE AND STOOL UA Leuk Est Moderate *ABN* (11/23/18 5:23 PM) Negative 11/23/2018 [facility] URINE AND STOOL UA Spec Grav 1.018 <=1.030 11/23/2018 [facility] URINE AND STOOL UA Turbidity Clear (11/23/18 5:23 PM) Clear 11/23/2018 [facility] URINE AND STOOL UA pH 5.0 5.0 - 8.0 11/23/2018 [facility] URINE AND STOOL UA Protein Negative (11/23/18 5:23 PM) Negative 11/23/2018 [facility] URINE AND STOOL UA Color Yellow *NA* (11/23/18 5:23 PM) Yellow 11/23/2018 [facility] URINE AND STOOL UA Blood Small *ABN* (11/23/18 5:23 PM) Negative 11/23/2018 [facility] URINE AND STOOL UA Nitrite Negative (11/23/18 5:23 PM) Negative 11/23/2018 [facility] URINE AND STOOL UA Urobilinogen <=1.0 mg/dL 0.1 - 1.0 11/23/2018 [facility] URINE AND STOOL UA Glucose Negative *NA* (11/23/18 5:23 PM) Negative 11/23/2018 [facility] URINE AND STOOL UA Ketones Negative 11/23/2018 [facility] URINE AND STOOL UA Bili Negative *NA* (11/23/18 5:23 PM) Negative 11/23/2018 [facility] Culture: Urine 10,000 - 50,000 CFU/mL Skin Sharita 11/23/2018 [facility] CHEM PANEL Lipase Lvl 50 unit/L 73 - 393 11/23/2018 [facility] CHEM PANEL eGFR 62 mL/min/1.73m2 11/23/2018 Result Comment: The eGFR is calculated using the CKD-EPI formula. In most young, healthy individuals the eGFR will be >90 mL/min/1.73m2. The eGFR declines with age. An eGFR of 60-89 may be normal in some populations, particularly the elderly, for whom the CKD-EPI formula has not been extensively validated. Use of the eGFR is not recommended in the following populations: Individuals with unstable creatinine concentrations, including patients and those with serious co-morbid conditions. Patients with extremes in muscle mass or diet. The data above are obtained from the National Kidney Disease Education Program (NKDEP) which additionally recommends that when the eGFR is used in patients with extremes of body mass index for purposes of drug dosing, the eGFR should be multiplied by the estimated BMI. [facility] CHEM PANEL Potassium Lvl 4.4 meq/L 3.5 - 5.1 11/23/2018 [facility] CHEM PANEL Chloride Lvl 102 meq/L 95 - 109 11/23/2018 [facility] CHEM PANEL Creatinine Lvl 0.96 mg/dL 0.50 - 1.40 11/23/2018 [facility] CHEM PANEL Sodium Lvl 138 meq/L 135 - 145 11/23/2018 [facility] CHEM PANEL ALT 34 unit/L 0 - 65 11/23/2018 [facility] CHEM PANEL Total Protein 7.5 g/dL 6.4 - 8.4 11/23/2018 [facility] CHEM PANEL Albumin Lvl 3.6 g/dL 3.5 - 5.0 11/23/2018 [facility] CHEM PANEL Calcium Lvl 9.2 mg/dL 8.5 - 10.5 11/23/2018 [facility] CHEM PANEL CO2 29 meq/L 24 - 32 11/23/2018 [facility] CHEM PANEL Alk Phos 99 unit/L 39 - 136 11/23/2018 [facility] CHEM PANEL Bili Total 0.5 mg/dL 0.2 - 1.3 11/23/2018 [facility] CHEM PANEL AST 20 unit/L 0 - 37 11/23/2018 [facility] CHEM PANEL BUN 20 mg/dL 7 - 22 11/23/2018 [facility] CHEM PANEL Glucose Lvl 92 mg/dL 70 - 99 11/23/2018 [facility] CHEM PANEL B/C Ratio 21 6 - 25 11/23/2018 [facility] CHEM PANEL AGAP 11.4 meq/L 10.0 - 20.0 11/23/2018 [facility] CHEM PANEL Globulin 3.9 g/dL 2.7 - 4.2 11/23/2018 [facility] CHEM PANEL A/G Ratio 0.9 0.7 - 1.6 11/23/2018 [facility] HEMATOLOGY Neutrophils # 10.4 K/CMM 1.5 - 8.1 11/23/2018 [facility] HEMATOLOGY Basophils 0.7 % 0.0 - 1.0 11/23/2018 [facility] HEMATOLOGY Basophils # 0.1 K/CMM 0.0 - 0.2 11/23/2018 [facility] HEMATOLOGY Monocytes 5.1 % 2.0 - 12.0 11/23/2018 [facility] HEMATOLOGY Eosinophils 1.3 % 0.0 - 4.0 11/23/2018 [facility] HEMATOLOGY Lymphocytes 23.4 % 20.0 - 40.0 11/23/2018 [facility] HEMATOLOGY Eosinophils # 0.2 K/CMM 0.0 - 0.5 11/23/2018 [facility] HEMATOLOGY Monocytes # 0.8 K/CMM 0.0 - 0.8 11/23/2018 [facility] HEMATOLOGY Lymphocytes # 3.5 K/CMM 1.0 - 5.5 11/23/2018 [facility] HEMATOLOGY Segs 69.5 % 45.0 - 75.0 11/23/2018 [facility] HEMATOLOGY MPV 8.9 fL 7.4 - 10.4 11/23/2018 [facility] HEMATOLOGY Platelet 267 K/CMM 133 - 450 11/23/2018 [facility] HEMATOLOGY MCH 30.7 pg 27.0 - 31.0 11/23/2018 [facility] HEMATOLOGY MCV 94.3 fL 80.0 - 98.0 11/23/2018 [facility] HEMATOLOGY Hct 44.3 % 36.0 - 48.0 11/23/2018 [facility] HEMATOLOGY Hgb 14.4 g/dL 12.0 - 16.0 11/23/2018 [facility] HEMATOLOGY RDW 13.8 % 11.5 - 14.5 11/23/2018 [facility] HEMATOLOGY MCHC 32.6 g/dL 32.0 - 36.0 11/23/2018 [facility] HEMATOLOGY RBC 4.70 M/CMM 4.20 - 5.40 11/23/2018 [facility] HEMATOLOGY WBC 15.0 K/CMM 3.7 - 10.4 11/23/2018 [facility] ED Abdomen/Pelvis IV contrast only CT ED Abdomen/Pelvis IV contrast only CT CT SCAN OF THE ABDOMEN AND PELVIS WITH CONTRAST. HX: Clinical Indication: - LUQ pain, n/v/d; . Comparison: CT head of 07/16/2018. Technique: Helical CT images were obtained from the domes the diaphragms to the symphysis pubis following the administration of intravenous contrast. No p.o. contrast was given. CT imaging performed at this location utilizes radiation dose optimization techniques which include one or more of the following: -Automated exposure control -Adjustment of the mA and/or kV according to patient size -Use of iterative reconstruction technique CT Radiation Dose DLP 742 mGy-cm ABDOMEN AND PELVIS: The lung bases are clear. Stable heart size. No pericardial effusion. Grossly normal gallbladder. Diffuse fatty liver infiltration. Multiple splenic calcified granulomas are present. The diffusely fatty atrophic pancreas and adrenals are stable in appearance. The kidneys show good, symmetrical enhancement without hydronephrosis. Malrotated right kidney is present. Small bilateral renal calculi and small inferior left renal cysts are present. Nonspecific perinephric stranding is present. Stable small right paramedian ventral hernia is present containing dilated fluid-filled and nondistended small bowel loops likely transient point for proximal small bowel obstruction with diffusely thickened small bowel folds. The bladder is grossly unremarkable. Postoperative hysterectomy. Mild sigmoid descending diverticulosis is present. IMPRESSION: 1. Stable small right paramedian ventral hernia is present containing dilated fluid- filled and nondistended small bowel loops likely transient point for proximal small bowel obstruction with diffusely thickened small bowel folds may reflect reactive changes or nonspecific enteritis. Close clinical and serial abdominal radiographs recommended. 2. Diffuse fatty liver infiltration. 3. Mild sigmoid descending diverticulosis. 4. Postoperative hysterectomy. SL: [id number] 11/23/2018 - - Read by: Humberto Tipton MD Dictated Date/time: 11/23/18 20:33 Electronically Signed by: Humberto Tipton MD 11/23/18 20:40 FINAL REPORT [facility] ED Abdomen/Pelvis IV contrast only CT ED Abdomen/Pelvis IV contrast only CT Study: CT ABDOMEN AND PELVIS WITH CONTRAST Clinical Indication: - LLQ pain; Comparison: CT abdomen pelvis 03/28/2017 Technique: Axial images with sagittal and coronal reconstructions were obtained following nonionic intravenous contrast, Omnipaque [address] imaging performed at this location utilizes radiation dose optimization techniques which include one or more of the following: -Automated exposure control -Adjustment of the mA and/or kV according to patient size -Use of iterative reconstruction technique CT Radiation Dose DLP 1325 mGy-cm FINDINGS: The lung bases are clear. There is diffuse fatty infiltration of the liver. The gallbladder and common duct appear normal. The spleen is normal in size contains multiple calcified granulomas. There is incomplete rotation of the right kidney and there are small left cortical cyst. There is minor nonspecific perinephric stranding. The adrenals appear normal. Pancreas is slightly atrophic. Lower right paramedian ventral abdominal wall hernia contains a short segment of slightly dilated small bowel with mild fecalization of its contents, suggesting stasis. No significant obstruction is noted. Scattered diverticular changes involve the distal colon. No mesenteric inflammation is noted. The uterus is absent. Unenhanced urinary bladder is not remarkable. No adnexal mass, adenopathy or ascites is seen. There is minor atherosclerosis and moderate spondylosis. IMPRESSION: 1. Unchanged lower right paramedian ventral hernia containing slightly prominent small bowel segment. 2. Mild diverticulosis. 3. Fatty liver. 4. Hysterectomy. SL: [id number] 07/16/2018 - - Read by: Slim Santos MD Dictated Date/time: 07/16/18 11:50 Electronically Signed by: Slim Santos MD 07/16/18 11:57 FINAL REPORT [facility] URINE AND STOOL UA Bacteria Few /HPF None Seen /HPF 03/29/2017 [facility] URINE AND STOOL UA RBC >100 /HPF 0 - 2 03/29/2017 [facility] URINE AND STOOL UA WBC 0-2 /HPF None Seen /HPF 03/29/2017 [facility] URINE AND STOOL UA Mucus Rare /LPF None Seen /LPF 03/29/2017 [facility] URINE AND STOOL UA Leuk Est Trace *ABN* (03/28/17 10:05 PM) Negative 03/29/2017 [facility] URINE AND STOOL UA Urobilinogen 0.2 EU/dL 0.1 - 1.0 03/29/2017 [facility] URINE AND STOOL UA Nitrite Negative (03/28/17 10:05 PM) Negative 03/29/2017 [facility] URINE AND STOOL UA Protein Trace *ABN* (03/28/17 10:05 PM) Negative 03/29/2017 [facility] URINE AND STOOL UA Glucose Negative (03/28/17 10:05 PM) Negative 03/29/2017 [facility] URINE AND STOOL UA pH 5.5 5.0 - 8.0 03/29/2017 [facility] URINE AND STOOL UA Sq Epi Occasional /LPF Few /LPF 03/29/2017 [facility] URINE AND STOOL UA Blood Large *ABN* (03/28/17 10:05 PM) Negative 03/29/2017 [facility] URINE AND STOOL UA Ketones Negative *NA* (03/28/17 10:05 PM) Negative 03/29/2017 [facility] URINE AND STOOL UA Bili Negative *NA* (03/28/17 10:05 PM) Negative 03/29/2017 [facility] URINE AND STOOL UA Spec Grav >=1.030 *ABN* (03/28/17 10:05 PM) <=1.030 03/29/2017 [facility] URINE AND STOOL UA Color Yellow *NA* (03/28/17 10:05 PM) Yellow 03/29/2017 [facility] URINE AND STOOL UA Turbidity Cloudy *ABN* (03/28/17 10:05 PM) Clear 03/29/2017 [facility] CHEM PANEL B/C Ratio 15 6 - 25 03/29/2017 [facility] CHEM PANEL Globulin 4.4 g/dL 2.7 - 4.2 03/29/2017 [facility] CHEM PANEL A/G Ratio 0.9 0.7 - 1.6 03/29/2017 [facility] CHEM PANEL AGAP 11.9 meq/L 10.0 - 20.0 03/29/2017 [facility] CHEM PANEL eGFR 46 mL/min/1.73m2 03/29/2017 Result Comment: The eGFR is calculated using the CKD-EPI formula. In most young, healthy individuals the eGFR will be >90 mL/min/1.73m2. The eGFR declines with age. An eGFR of 60-89 may be normal in some populations, particularly the elderly, for whom the CKD-EPI formula has not been extensively validated. Use of the eGFR is not recommended in the following populations: Individuals with unstable creatinine concentrations, including patients and those with serious co-morbid conditions. Patients with extremes in muscle mass or diet. The data above are obtained from the National Kidney Disease Education Program (NKDEP) which additionally recommends that when the eGFR is used in patients with extremes of body mass index for purposes of drug dosing, the eGFR should be multiplied by the estimated BMI. [facility] CHEM PANEL AST 22 unit/L 0 - 37 03/29/2017 [facility] CHEM PANEL Alk Phos 109 unit/L 39 - 136 03/29/2017 [facility] CHEM PANEL ALT 47 unit/L 0 - 65 03/29/2017 [facility] CHEM PANEL Bili Total 0.4 mg/dL 0.2 - 1.3 03/29/2017 [facility] CHEM PANEL Calcium Lvl 9.3 mg/dL 8.5 - 10.5 03/29/2017 [facility] CHEM PANEL Total Protein 8.2 g/dL 6.4 - 8.4 03/29/2017 [facility] CHEM PANEL Albumin Lvl 3.8 g/dL 3.5 - 5.0 03/29/2017 [facility] CHEM PANEL Potassium Lvl 3.9 meq/L 3.5 - 5.1 03/29/2017 [facility] CHEM PANEL Chloride Lvl 104 meq/L 95 - 109 03/29/2017 [facility] CHEM PANEL CO2 25 meq/L 24 - 32 03/29/2017 [facility] CHEM PANEL BUN 18 mg/dL 7 - 22 03/29/2017 [facility] CHEM PANEL Creatinine Lvl 1.23 mg/dL 0.50 - 1.40 03/29/2017 [facility] CHEM PANEL Sodium Lvl 137 meq/L 135 - 145 03/29/2017 [facility] CHEM PANEL Glucose Lvl 141 mg/dL 70 - 99 03/29/2017 [facility] CHEM PANEL Lipase Lvl 63 unit/L 73 - 393 03/29/2017 [facility] HEMATOLOGY Platelet 235 K/CMM 133 - 450 03/29/2017 [facility] HEMATOLOGY MCHC 32.7 g/dL 32.0 - 36.0 03/29/2017 [facility] HEMATOLOGY RDW 14.3 % 11.5 - 14.5 03/29/2017 [facility] HEMATOLOGY MCH 30.4 pg 27.0 - 31.0 03/29/2017 [facility] HEMATOLOGY RBC 4.84 M/CMM 4.20 - 5.40 03/29/2017 [facility] HEMATOLOGY MCV 93.0 fL 80.0 - 98.0 03/29/2017 [facility] HEMATOLOGY Hgb 14.7 g/dL 12.0 - 16.0 03/29/2017 [facility] HEMATOLOGY WBC 13.4 K/CMM 3.7 - 10.4 03/29/2017 [facility] HEMATOLOGY Hct 45.0 % 36.0 - 48.0 03/29/2017 [facility] HEMATOLOGY MPV 8.7 fL 7.4 - 10.4 03/29/2017 [facility] HEMATOLOGY Monocytes 6.5 % 2.0 - 12.0 03/29/2017 [facility] HEMATOLOGY Segs-Bands # 11.1 K/CMM 1.5 - 8.1 03/29/2017 [facility] HEMATOLOGY Lymphocytes # 1.3 K/CMM 1.0 - 5.5 03/29/2017 [facility] HEMATOLOGY Eosinophils 0.4 % 0.0 - 4.0 03/29/2017 [facility] HEMATOLOGY Basophils # 0.1 K/CMM 0.0 - 0.2 03/29/2017 [facility] HEMATOLOGY Basophils 0.5 % 0.0 - 1.0 03/29/2017 [facility] HEMATOLOGY Lymphocytes 9.9 % 20.0 - 40.0 03/29/2017 [facility] HEMATOLOGY Segs 82.7 % 45.0 - 75.0 03/29/2017 [facility] HEMATOLOGY Monocytes # 0.9 K/CMM 0.0 - 0.8 03/29/2017 [facility] HEMATOLOGY Eosinophils # 0.1 K/CMM 0.0 - 0.5 03/29/2017 [facility] Abdomen/Pelvis wo IV contrast CT Abdomen/Pelvis wo IV contrast CT RENAL STONE PROTOCOL CT ABDOMEN AND PELVIS WITHOUT CONTRAST DATED 03/28/2017. CLINICAL INDICATION: Flank pain. Hematuria. COMPARISON: CT abdomen dated 03/19/2015. TECHNIQUE: A renal stone protocol CT of the abdomen and pelvis was performed using helical images from the upper abdomen through the pubic symphysis without bowel or intravenous contrast. Axial and coronal reformations were performed. CT radiation dose: YHL=6070 mGy-cm FINDINGS: RENAL: A 4 mm calcified stone is identified in the distal right ureter at the right ureterovesical junction with mild right hydronephrosis/hydroureter and acute edema in the right perinephric and periureteric fat. The right kidney contains a single 2 to 3 mm calcified stone in the left kidney contains two 2 to 3 mm calcified stones. There is no CT evidence of acute left renal collecting system obstruction or calcified left renal collecting system stone. SOLID ORGANS: The liver demonstrates evidence of fatty infiltration with areas of focal fatty sparing in the dorsal aspect of the medial segment of the left hepatic lobe and adjacent to the gallbladder fossa. The spleen contains multiple calcified granulomata but is otherwise unremarkable. No CT abnormalities of the pancreas or adrenal glands are identified. The gallbladder is normally distended. No significant biliary ductal dilatation is noted. BOWEL: Bowel assessment is limited by the absence of bowel contrast. A right lower quadrant abdominal wall herniation is again identified to contain a segment of small intestine. The small bowel segment extending into the hernia appears to demonstrate mild wall thickening with injection of the adjacent fat, suspicious for edema or inflammation. There is no evidence of acute intestinal obstruction. The appendix is identified and does not appear acutely inflamed. Scattered colonic diverticula are identified without CT evidence of acute diverticulitis. PERITONEUM: There is no CT evidence of free intraperitoneal air or significant free intraperitoneal fluid. RETROPERITONEUM: The abdominal aorta is normal in caliber. No enlarged retroperitoneal lymph nodes are detected. PELVIS: The patient is status post hysterectomy. The ovaries are not identified and may be surgically absent. No suspicious adnexal masses are noted. The unopacified bladder appears unremarkable. LOWER CHEST: The lung bases appear clear of acute disease. IMPRESSION: 1. Acute right renal collecting system obstruction secondary to a 4 mm calcified stone in the distal right ureter at the right ureterovesical junction. 2. Bilateral nephrolithiasis. 3. A right lower quadrant abdominal wall hernia is again identified to contain small intestine. The segment of small intestine extending into the hernia appears to demonstrate wall thickening with mild injection of the adjacent fat, suggesting edema or inflammation. There is no evidence of acute intestinal obstruction. SL:131 03/28/2017 - - Read by: Akira Day MD Dictated Date/time: 03/28/17 23:57 Electronically Signed by: Akira Day MD 03/29/17 00:14 FINAL REPORT [facility] Abdomen 2 views DX Abdomen 2 views DX Study: Abdomen 2 views DX Clinical Indication: - R10.84 Generalized abdominal pain K43.9 Ventral hernia without obstruction or gangrene K80.20 Calculus of gallbladder without cholecystitis without obstruction; Comparison: CT abdomen pelvis 03/19/2015 FINDINGS: Image quality is compromised by the large patient size. Supine and upright images demonstrate a normal bowel gas pattern, with no pneumoperitoneum. The clinically apparent ventral hernia is not clearly identified. No abnormal soft tissue mass or calcification is seen. There is minor spondylosis. SL: [id number] 03/01/2017 - - Read by: Slim Santos MD Dictated Date/time: 03/01/17 15:30 Electronically Signed by: Slim Santos MD 03/01/17 15:32 FINAL REPORT [facility] Gallbladder scan HIDA w meds NM Gallbladder scan HIDA w meds NM Study: Hepatobiliary scan, with gallbladder ejection fraction calculation Clinical Indication: R10.11 Right upper quadrant pain; Comparison: Gallbladder ultrasound 09/10/2016 Imaging was performed following the intravenous administration of 6 mCi of Technetium 99m labeled Choletec. There was normal distribution of activity throughout a normal-sized liver. Activity promptly appeared within the major intrahepatic biliary radicals, common duct, gallbladder and small bowel. Following intravenous administration of 2 mcg of cholecystokinin, the calculated ejection fraction is 15.5%, which is an abnormal pharmacologic response (less than 30%) IMPRESSION: Normal scan. Abnormal response to cholecystokinin. 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 No gallstones are demonstrated. Diffuse increased echogenicity of the liver is noted compatible with fatty infiltration of the liver; however, cirrhosis or chronic hepatitis could have this appearance. No intrahepatic duct dilatation. Common duct caliber is 6 mm. Right kidney measures 11.7 x 5.3 x 5.2 cm. Right kidney has an otherwise normal sonographic appearance. IMPRESSION: 1. No gallstones. 2. Diffuse fatty infiltration of the liver as well as the pancreatic head and body. SL: PJOHNSON-PC 09/10/2016 - - Read by: Dougie Soriano MD Dictated Date/time: 09/10/16 11:35 Electronically Signed by: Dougie Soriano MD 09/10/16 11:41 FINAL REPORT [facility] CHEM PANEL eGFR 79 mL/min/1.73m2 03/19/2015 Result Comment: The eGFR is calculated using the CKD-EPI formula. In most young, healthy individuals the eGFR will be >90 mL/min/1.73m2. The eGFR declines with age. An eGFR of 60-89 may be normal in some populations, particularly the elderly, for whom the CKD-EPI formula has not been extensively validated. Use of the eGFR is not recommended in the following populations: Individuals with unstable creatinine concentrations, including patients and those with serious co-morbid conditions. Patients with extremes in muscle mass or diet. The data above are obtained from the National Kidney Disease Education Program (NKDEP) which additionally recommends that when the eGFR is used in patients with extremes of body mass index for purposes of drug dosing, the eGFR should be multiplied by the estimated BMI. [facility] CHEM PANEL POC Creatinine 0.8 mg/dL 0.5 - 1.4 03/19/2015 [facility] Abdomen/Pelvis w IV contrast CT Abdomen/Pelvis w IV contrast CT CT SCAN OF THE ABDOMEN AND PELVIS WITH CONTRAST. HX: abd wall mass COMPARISON: 06/09/2005 Technique: Helical CT images from domes of the diaphragms to symphysis pubis following oral and 100 cc Omnipaque nonionic iodinated intravenous contrast. Dose: OVG=5213 mGy-cm. ABDOMEN: The lung bases are clear. The liver appears diminished in density, suspicious for fatty infiltration. The spleen contains multiple calcified granulomas. The pancreas is atrophic. Adrenal glands, gallbladder and kidneys unremarkable. No retroperitoneal adenopathy. No free air or free fluid noted the peritoneal cavity. Bowel is normal in course and caliber. ABDOMEN CONCLUSION: 1. Fatty liver. 2. Calcified granulomas in the spleen. PELVIS: The bladder contour is smooth. There is a region of atrophy involving the rectus muscle to the right of midline in the lower abdomen and upper pelvis associated with a protrusion of the peritoneum containing some small bowel loops. This protrusion measures over 6 cm in diameter. Midline scarring suggests an infraumbilical surgical procedure in the past. The uterus is not visualized and is present be surgically absent. There is no evidence of free fluid in the pelvis. The visualized osseous structures are grossly normal. PELVIS CONCLUSION: 1. Protrusion of the anterior bowel wall to the right of midline in the lower abdomen/pelvic region, to the right of the incision scar from previous hysterectomy. Rectus muscle atrophy in this region. 2. Previous hysterectomy. SL: 12 03/19/2015 - - Read by: Jose Armando Garcia MD Dictated Date/time: 03/20/15 07:07 Electronically Signed by: Jose Armando Garcia MD 03/20/15 07:15 FINAL REPORT [facility] Chest 2 views Chest 2 views CHEST 2 VIEWS HX: HTN; Pre-op COMPARISON: 09/01/2010 at 21:58 FINDINGS: The lungs are free of consolidation or pleural effusion and the mediastinal silhouette is within normal limits of size. The visualized osseous structures are grossly negative. IMPRESSION: Negative chest. SL: 12 01/01/2014 - - Read by: Jose Armando Garcia MD Dictated Date/time: 01/01/14 15:00 Electronically Signed by: Jose Armando Garcia MD 01/01/14 15:02 FINAL REPORT [facility] Vital Signs Vital Sign Value Date Comments Source Weight 210 11/28/2018 Amrit Ivory Height 63 11/28/2018 Amrit Ivory Heart Rate 74 11/28/2018 Amrit Ivory Diastolic (mm Hg) 80 11/28/2018 Amrit Ivory Systolic (mm Hg) 124 11/28/2018 Amrit Ivory Heart Rate 74 11/25/2018 [facility] Temperature Oral (F) 98.0 F 11/25/2018 [facility] Respitory Rate 18 11/25/2018 [facility] Systolic (mm Hg) 136 11/25/2018 [facility] Diastolic (mm Hg) 79 11/25/2018 [facility] Systolic (mm Hg) 148 11/25/2018 [facility] Diastolic (mm Hg) 79 11/25/2018 [facility] Respitory Rate 18 11/25/2018 [facility] Temperature Oral (F) 97.8 F 11/25/2018 [facility] Heart Rate 64 11/25/2018 [facility] Systolic (mm Hg) 137 11/25/2018 [facility] Diastolic (mm Hg) 80 11/25/2018 [facility] Temperature Oral (F) 97.9 F 11/25/2018 [facility] Heart Rate 64 11/25/2018 [facility] Respitory Rate 18 11/25/2018 [facility] Weight 76.364 11/23/2018 [facility] BMI Calculated 28.9 11/23/2018 [facility] Height 162.56 cm 11/23/2018 [facility] Weight 220 08/27/2018 Amrit Coronadolio Height 63 08/27/2018 Amrit Coronadolio Heart Rate 88 08/27/2018 Amrit Norwoodo Diastolic (mm Hg) 80 08/27/2018 Amrit Haile Cachorro Systolic (mm Hg) 122 08/27/2018 Amrit Coronadolio Weight 226 03/08/2018 Amrit Coronadolio Height 63 03/08/2018 Amrit Haile Cachorro Heart Rate 74 03/08/2018 Amrit Coronadolio Diastolic (mm Hg) 82 03/08/2018 Amrit Haile Cachorro Systolic (mm Hg) 122 03/08/2018 Amrit Coronadolio Weight 222 09/07/2017 Amrit Coronadolio Height 63 09/07/2017 Amrit Haile Cachorro Heart Rate 72 09/07/2017 Amrit Coronadolio Diastolic (mm Hg) 80 09/07/2017 Amrit Haile Cachorro Systolic (mm Hg) 122 09/07/2017 Amrit Coronadolio Weight 218 03/30/2017 Amrit Coronadolio Height 63 03/30/2017 Amrit Norwoodo Temperature Oral (F) 98.7 F 03/30/2017 Amrit Coronadolio Heart Rate 72 03/30/2017 Amrit Coronadolio Diastolic (mm Hg) 74 03/30/2017 Amrit Coronadolio Systolic (mm Hg) 120 03/30/2017 Amrit Coronadolio Systolic (mm Hg) 137 03/29/2017 [facility] Diastolic (mm Hg) 77 03/29/2017 [facility] Heart Rate 73 03/29/2017 [facility] Respitory Rate 20 03/29/2017 [facility] Respitory Rate 18 03/29/2017 [facility] Heart Rate 83 03/29/2017 [facility] Systolic (mm Hg) 133 03/29/2017 [facility] Diastolic (mm Hg) 68 03/29/2017 [facility] Temperature Oral (F) 98.3 F 03/29/2017 [facility] Weight 100 03/29/2017 [facility] Weight 220 03/01/2017 Amrit Coronadolio Height 63 03/01/2017 Amrit Mic Cachorro Heart Rate 76 03/01/2017 Amrit Haile Cachorro Diastolic (mm Hg) 76 03/01/2017 Amrit Haile Cachorro Systolic (mm Hg) 124 03/01/2017 Amrit Haile Cachorro Weight 224 02/03/2017 Amrit Haile Cachorro Height 63 02/03/2017 Amrit Haile Cachorro Heart Rate 72 02/03/2017 Amrit Haile Cachorro Diastolic (mm Hg) 76 02/03/2017 Amrit Haile Cachorro Systolic (mm Hg) 124 02/03/2017 Amrit Haile Cachorro Weight 221 10/14/2016 Amrit Haile Cachorro Height 63 10/14/2016 Amrit Mic Cachorro Heart Rate 72 10/14/2016 Amrit Haile Cachorro Diastolic (mm Hg) 82 10/14/2016 Amrit Haile Cachorro Systolic (mm Hg) 134 10/14/2016 Amrit Haile Cachorro Weight 222 09/09/2016 Amrit Haile Cachorro Height 63 09/09/2016 Amrit Haile Cachorro Heart Rate 68 09/09/2016 Amrit Haile Cachorro Systolic (mm Hg) 122 09/09/2016 Amrit Haile Cachorro Weight 222 08/29/2016 Amrit Haile Cachorro Height 63 08/29/2016 Amrit Haile Cachorro Heart Rate 76 08/29/2016 Amrit Haile Cachorro Diastolic (mm Hg) 78 08/29/2016 Amrit Haile Cachorro Systolic (mm Hg) 120 08/29/2016 Amrit Haile Cachorro Weight 226 03/25/2016 Amrit Haile Cachorro Height 63 03/25/2016 Amrit Mic Cachorro Heart Rate 80 03/25/2016 Amrit Haile Cachorro Systolic (mm Hg) 162 03/25/2016 Amrit Mic Cachorro Weight 224 01/26/2016 Amrit Mic Cachorro Height 63 01/26/2016 Amrit Mic Cachorro Heart Rate 84 01/26/2016 Amrit Haile Cachorro Systolic (mm Hg) 128 01/26/2016 Amrit Mic Cachorro Weight 225 12/18/2015 Amrit Haile Cachorro Height 63 12/18/2015 Amrit Coronadolio Temperature Oral (F) 97.1 F 12/18/2015 Amrit Haile Cachorro Heart Rate 72 12/18/2015 Amrit Imc Cachorro Systolic (mm Hg) 144 12/18/2015 Amrit Haile Cachorro Weight 224 11/24/2015 Amrit Haile Cachorro Height 63 11/24/2015 Amrit Haile Cachorro Heart Rate 76 11/24/2015 Amrit Haile Cachorro Diastolic (mm Hg) 80 11/24/2015 Amrit Haile Cachorro Systolic (mm Hg) 140 11/24/2015 Amrit Haile Cachorro Weight 229 06/15/2015 Amrit Haile Cachorro Height 63 06/15/2015 Amrit Haile Cachorro Heart Rate 72 06/15/2015 Amrit Haile Cachorro Diastolic (mm Hg) 82 06/15/2015 Amrit Haile Cachorro Systolic (mm Hg) 140 06/15/2015 Amrit Haile Cachorro Weight 226 09/03/2014 Amrit Haile Cachorro Height 63 09/03/2014 Amrit Haile Cachorro Heart Rate 80 09/03/2014 Amrit Haile Cachorro Systolic (mm Hg) 136 09/03/2014 Amrit Haile Cachorro Weight 218 03/06/2014 Amrit Haile Cachorro Height 63 03/06/2014 Amrit Haile Cachorro Heart Rate 76 03/06/2014 Amrit Haile Cachorro Diastolic (mm Hg) 82 03/06/2014 Amrit Haile Cachorro Systolic (mm Hg) 134 03/06/2014 Amrit Haile Cachorro Weight 223 01/01/2014 Amrit Haile Cachorro Height 63 01/01/2014 Amrit Haile Cachorro Heart Rate 80 01/01/2014 Amrit Haile Cachorro Diastolic (mm Hg) 86 01/01/2014 Amrit Haile Cachorro Systolic (mm Hg) 136 01/01/2014 Amrit Haile Cachorro Weight 218 10/09/2013 Amrit Haile Cachorro Height 63 10/09/2013 Amrit Haile Cachorro Heart Rate 68 10/09/2013 Amrit Haile Cachorro Diastolic (mm Hg) 88 10/09/2013 Amrit Haile Cachorro Systolic (mm Hg) 136 10/09/2013 Amrit Haile Cachorro Weight 220 09/19/2013 Amrit Haile Cachorro Height 63 09/19/2013 Amrit Haile Cachorro Heart Rate 80 09/19/2013 Amrit Haile Cachorro Diastolic (mm Hg) 80 09/19/2013 Amrit Ivory Systolic (mm Hg) 148 09/19/2013 Amrit Norwoodo Weight 213 03/08/2013 Amrit Haile Cachorro Height 63 03/08/2013 Amrit Ivory Heart Rate 72 03/08/2013 Amrit Mic Ivory Diastolic (mm Hg) 82 03/08/2013 Amrit Haile Cachorro Systolic (mm Hg) 130 03/08/2013 Amrit Mic Cachorro Encounters Location Location Details Encounter Type Encounter Number Reason For Visit Attending Provider ADM Date DC Date Status Source mArit Ivory MD bp c[facility] , refill norvasc [id number] 03/08/2013 03/08/2013 Amrit Ivory MD bp ck , refill norvasc [id number] 03/08/2013 03/08/2013 Amrit Ivory MD bp ck , refill norvasc [id number] 03/08/2013 03/08/2013 Amrit Ivory MD bp ck , refill norvasc [id number] 03/08/2013 03/08/2013 Amrit Ivory MD bp ck , refill norvasc [id number] 03/08/2013 03/08/2013 Amrit Ivory MD bp ck , refill norvasc [id number] 03/08/2013 03/08/2013 Amrit Ivory MD bp ck , refill norvasc [id number] 03/08/2013 03/08/2013 Amrit Ivory MD bp ck , refill norvasc [id number] 03/08/2013 03/08/2013 Amrit Ivory MD ck , refill norvasc [id number] 03/08/2013 03/08/2013 Amrit Ivory MD ck , refill norvasc [id number] 03/08/2013 03/08/2013 Amrit Ivory MD [facility] , refill norvasc [id number] 03/08/2013 03/08/2013 Amrit Ivory MD [facility] , refill norvasc [id number] 03/08/2013 03/08/2013 Amrit Ivory MD [facility] , refill norvasc [id number] 03/08/2013 03/08/2013 Amrit Ivory MD ck , refill norvasc [id number] 03/08/2013 03/08/2013 Amrit Ivory MD [facility] , refill norvasc [id number] 03/08/2013 03/08/2013 Amrit Ivory MD [facility] , refill norvasc [id number] 03/08/2013 03/08/2013 Amrit Ivory MD [facility] , refill norvasc [id number] 03/08/2013 03/08/2013 Amrit Ivory MD ck , refill norvasc [id number] 03/08/2013 03/08/2013 Amrit Ivory MD ck , refill norvasc [id number] 03/08/2013 03/08/2013 Amrit Ivory MD ck , refill norvasc [id number] 03/08/2013 03/08/2013 Amrit Ivory MD ck , refill norvasc [id number] 03/08/2013 03/08/2013 Amrit Ivory MD ck , refill norvasc [id number] 03/08/2013 03/08/2013 Amrit Ivory MD [facility] , refill norvasc [id number] 03/08/2013 03/08/2013 Amrit Ivory MD ck , refill norvasc [id number] 03/08/2013 03/08/2013 Amrit Ivory MD ck , refill norvasc [id number] 03/08/2013 03/08/2013 Amrit Ivory MD ck , refill norvasc [id number] 03/08/2013 03/08/2013 Amrit Ivory MD ck , refill norvasc [id number] 03/08/2013 03/08/2013 Amrit Ivory MD ck , refill norvasc [id number] 03/08/2013 03/08/2013 Amrit Ivory MD ck , refill norvasc [id number] 03/08/2013 03/08/2013 Amrit Ivory MD ck , refill norvasc [id number] 03/08/2013 03/08/2013 Amrit Ivory MD ck , refill norvasc [id number] 03/08/2013 03/08/2013 Amrit Ivory MD ck , refill norvasc [id number] 03/08/2013 03/08/2013 Amrit Ivory MD ck , refill norvasc [id number] 03/08/2013 03/08/2013 Amrit Ivory MD ck , refill norvasc [id number] 03/08/2013 03/08/2013 Amrit Ivory MD ck , refill norvasc [id number] 03/08/2013 03/08/2013 Amrit Ivory MD bp ck , refill [facility] [id number] 03/08/2013 03/08/2013 Amrit Ivory MD Test results [id number] 03/11/2013 03/11/2013 Amrit Ivory MD Test results [id number] 03/11/2013 03/11/2013 Amrit Ivory MD Test results [id number] 03/11/2013 03/11/2013 Amrit Ivory MD Test results [id number] 03/11/2013 03/11/2013 Amrit Ivory MD Test results [id number] 03/11/2013 03/11/2013 Amrit Ivory MD Test results [id number] 03/11/2013 03/11/2013 Amrit Ivory MD Test results [id number] 03/11/2013 03/11/2013 Amrit Ivory MD Test results [id number] 03/11/2013 03/11/2013 Amrit Ivory MD Test results [id number] 03/11/2013 03/11/2013 Amrit Ivory MD Test results [id number] 03/11/2013 03/11/2013 Amrit Ivory MD Test results [id number] 03/11/2013 03/11/2013 Amrit Ivory MD Test results [id number] 03/11/2013 03/11/2013 Amrit Ivory MD Test results [id number] 03/11/2013 03/11/2013 Amrit Ivory MD Test results [id number] 03/11/2013 03/11/2013 Amrit Ivory MD Test results [id number] 03/11/2013 03/11/2013 Amrit Ivory MD Test results [id number] 03/12/2013 03/12/2013 Amrit Ivory MD Test results [id number] 03/12/2013 03/12/2013 Amrit Ivory MD Test results [id number] 03/12/2013 03/12/2013 Amrit Ivory MD Test results [id number] 03/12/2013 03/12/2013 Amrit Ivory MD Test results [id number] 03/12/2013 03/12/2013 Amrit Ivory MD Test results [id number] 03/12/2013 03/12/2013 Amrit Ivory MD Test results [id number] 03/12/2013 03/12/2013 Amrit Ivory MD Test results [id number] 03/12/2013 03/12/2013 Amrit Ivory MD Test results [id number] 03/12/2013 03/12/2013 Amrit Ivory MD Test results [id number] 03/12/2013 03/12/2013 Amrit Ivory MD Test results [id number] 03/12/2013 03/12/2013 Amrit Ivory MD Test results [id number] 03/12/2013 03/12/2013 Amrit Ivory MD Test results [id number] 03/12/2013 03/12/2013 Amrit Ivory MD Test results [id number] 03/12/2013 03/12/2013 Amrit Ivory MD Test results [id number] 03/12/2013 03/12/2013 Amrit Ivory MD Test results [id number] 03/12/2013 03/12/2013 Amrit Ivory MD Test results [id number] 03/12/2013 03/12/2013 Amrit Ivory MD Test results [id number] 03/12/2013 03/12/2013 Amrit Ivory MD [facility] [id number] 03/12/2013 03/12/2013 Amrit Ivory MD [facility] [id number] 03/12/2013 03/12/2013 Amrit Ivory MD [facility] [id number] 03/12/2013 03/12/2013 Amrit Ivory MD [facility] [id number] 03/12/2013 03/12/2013 Amrit Ivory MD [facility] [id number] 03/12/2013 03/12/2013 Amrit Ivory MD [facility] [id number] 03/12/2013 03/12/2013 Amrit Ivory MD [facility] [id number] 03/12/2013 03/12/2013 Amrit Ivory MD [facility] [id number] 03/12/2013 03/12/2013 Amrit Ivory MD [facility] [id number] 03/12/2013 03/12/2013 Amrit Ivory MD [facility] [id number] 03/12/2013 03/12/2013 Amrit Ivory MD [facility] [id number] 03/12/2013 03/12/2013 Amrit Ivory MD [facility] [id number] 03/12/2013 03/12/2013 Amrit Ivory MD [facility] [id number] 03/12/2013 03/12/2013 Amrit Ivory MD [facility] [id number] 03/12/2013 03/12/2013 Amrit Ivory MD [facility] [id number] 03/12/2013 03/12/2013 Amrit Ivory MD [facility] [id number] 03/12/2013 03/12/2013 Amrit Ivory MD [facility] [id number] 03/12/2013 03/12/2013 Amrit Ivory MD [facility] [id number] 03/12/2013 03/12/2013 Amrit Ivory MD [facility] [id number] 03/12/2013 03/12/2013 Amrit Ivory MD [facility] [id number] 03/12/2013 03/12/2013 Amrit Ivory MD [facility] [id number] 03/12/2013 03/12/2013 Amrit Ivory MD [facility] [id number] 03/12/2013 03/12/2013 Amrit Ivory MD [facility] [id number] 03/12/2013 03/12/2013 Amrit Ivory MD [facility] [id number] 03/12/2013 03/12/2013 Amrit Ivory MD [facility] [id number] 03/12/2013 03/12/2013 Amrit Ivory MD [facility] [id number] 03/12/2013 03/12/2013 Amrit Ivory MD [facility] [id number] 03/12/2013 03/12/2013 Amrit Ivory MD [facility] [id number] 03/12/2013 03/12/2013 Amrit Ivory MD [facility] [id number] 03/12/2013 03/12/2013 Amrit Ivory MD [facility] [id number] 03/12/2013 03/12/2013 Amrit Ivory MD [facility] [id number] 03/12/2013 03/12/2013 Amrit Ivory MD [facility] [id number] 03/12/2013 03/12/2013 Amrit Ivory MD [facility] [id number] 03/12/2013 03/12/2013 Amrit Ivory MD [facility] [id number] 03/12/2013 03/12/2013 Amrit Ivory MD [facility] [id number] 03/12/2013 03/12/2013 Amrit Ivory MD fax from prev. [id number] 2013 2013 Amrit Ivory MD fax from prev. [id number] 2013 2013 Amrit Ivory MD fax from prevLizbeth Ford [id number] 2013 2013 Amrit Ivory MD fax from prev. DrLizbeth [id number] 2013 2013 Amrit Ivory MD fax from prev. DrLizbeth [id number] 2013 2013 Amrit Ivory MD fax from prev. DrLizbeth [id number] 2013 2013 Amrit Ivory MD fax from prev. [id number] 2013 2013 Amrit Ivory MD fax from prev. [id number] 2013 2013 Amrit Ivory MD fax from prev. DrLizbeth [id number] 2013 2013 Amrit Ivory MD fax from prev. DrLizbeth [id number] 2013 2013 Amrit Ivory MD fax from prev. [id number] 2013 2013 Amrit Ivory MD fax from prev. [id number] 2013 2013 Amrit Ivory MD fax from prev. DrLizbeth [id number] 2013 2013 Amrit Ivory MD fax from prev. [id number] 2013 2013 Amrit Ivory MD fax from prev. DrLizbeth [id number] 2013 2013 Amrit Ivory MD fax from prev. [id number] 2013 2013 Amrit Ivory MD fax from prev. [id number] 2013 2013 Amrit Ivory MD fax from prev. [id number] 2013 2013 Amrit Ivory MD fax from prev. [id number] 2013 2013 Amrit Ivory MD fax from prev. [id number] 2013 2013 Amrit Ivory MD fax from prev. [id number] 2013 2013 Amrit Ivory MD fax from prev. [id number] 2013 2013 Amrit Ivory MD fax from prev. [id number] 2013 2013 Amrit Ivory MD fax from prev. [id number] 2013 2013 Amrit Ivory MD fax from prev. [id number] 2013 2013 Amrit Ivory MD fax from prev. [id number] 2013 2013 Amrit Ivory MD fax from prev. [id number] 2013 2013 Amrit Ivory MD fax from prev. [id number] 2013 2013 Amrit Ivory MD fax from prev. [id number] 2013 2013 Amrit Ivory MD fax from prev. [id number] 2013 2013 Amirt Ivory MD fax from prev. [id number] 2013 2013 Amrit Ivory MD fax from prev. [id number] 2013 2013 Amrit Ivory MD fax from prev. [id number] 2013 2013 Amrit Ivory MD fax from prev. 5g5n5f10-537p-05tr-e67o-53284m0iz705 2013 2013 Amrit Ivory MD pre op for hysterectomy, bp [id number]-73v9-4833254jk878 09/19/2013 09/19/2013 Amrit Ivory MD pre op for hysterectomy, bp 694345j8-6d0u-9936-ht21-16o193zg4124 09/19/2013 09/19/2013 Amrit Ivory MD pre op for hysterectomy, bp 9161570j-b245-9q9f-ze4k-514612c48277 09/19/2013 09/19/2013 Amrit Ivory MD pre op for hysterectomy, bp s2486l8q-7820-8700-ge41-13lzs45d954u 09/19/2013 09/19/2013 Amrit Ivory MD pre op for hysterectomy, bp 3w7d2qld-1u7z-3uiy-m2o0-0m60bs5605m6 09/19/2013 09/19/2013 Amrit Ivory MD pre op for hysterectomy, bp 70atbu28-4sc4-96v3-l9h3-3y16w7s07820 09/19/2013 09/19/2013 Amrit Ivory MD pre op for hysterectomy, bp 071n50v9-28v0-5yby-w454-d5fy18c8g210 09/19/2013 09/19/2013 Amrit Ivory MD pre op for hysterectomy, bp rdp1i51r-4662-8345-p9i3-gi19651aj192 09/19/2013 09/19/2013 Amrit Ivory MD pre op for hysterectomy, bp ys330114-4777-9kk7-07e6-4173bz4n2mzk 09/19/2013 09/19/2013 Amrit Ivory MD pre op for hysterectomy, bp 53kp710k-60q4-9585-m427-29g26332r998 09/19/2013 09/19/2013 Amrit Ivory MD pre op for hysterectomy, bp 6945ro64-x0n1-9ng0-tz1o-0mpkx400ai12 09/19/2013 09/19/2013 Amrit Ivory MD pre op for hysterectomy, bp 04621u5w-600a-11l8-x5vz-k21yan88567i 09/19/2013 09/19/2013 Amrit Ivory MD pre op for hysterectomy, bp p874vw56-nbxr-4463-a396-779h89y842vg 09/19/2013 09/19/2013 Amrit Ivory MD pre op for hysterectomy, bp 5800957g-8852-3int-2p5x-h6128iol4858 09/19/2013 09/19/2013 Amrit Ivory MD pre op for hysterectomy, bp wvmbb49n-5kw2-2433-ond6-r2tuf3290jx1 09/19/2013 09/19/2013 Amrit Ivory MD pre op for hysterectomy, bp 9gnjf70b-3m75-2783-77i6-sz8s9907648r 09/19/2013 09/19/2013 Amrit Ivory MD pre op for hysterectomy, bp 2t3864kj-7412-3g70-9yvo-06s206669sh2 09/19/2013 09/19/2013 Amrit Ivory MD pre op for hysterectomy, bp 9h0lsy93-9z00-47t1-034e-4341d02n2amb 09/19/2013 09/19/2013 Amrit Ivory MD pre op for hysterectomy, bp 47n7gs2i-ro9o-9160-9srz-8i89n378e78v 09/19/2013 09/19/2013 Amrit Ivory MD pre op for hysterectomy, bp 2h5n223s-87m4-443d-hc91-45a2z6223718 09/19/2013 09/19/2013 Amrit Ivory MD pre op for hysterectomy, bp 493j72t1-0pd6-8585-xo25-980gpz83wq7a 09/19/2013 09/19/2013 Amrit Ivory MD pre op for hysterectomy, bp v1048www-156r-91z2-w4r7-637p1e085wc1 09/19/2013 09/19/2013 Amrit Ivory MD pre op for hysterectomy, bp 465i0102-v04z-672y-942m-0iq50y0am0a4 09/19/2013 09/19/2013 Amrit Ivory MD pre op for hysterectomy, bp scp3y5s6-x303-8066-5kv7-38609163i2u3 09/19/2013 09/19/2013 Amrit Ivory MD pre op for hysterectomy, bp xxilv32t-58a8-343z-sf2y-fz8m436ugp41 09/19/2013 09/19/2013 Amrit Ivory MD pre op for hysterectomy, bp t018o9f1-i00o-28p3-s16q-7f56486050g9 09/19/2013 09/19/2013 Amrit Ivory MD pre op for hysterectomy, bp 83338087-515e-294c-568x-4691cf7h3330 09/19/2013 09/19/2013 Amrit Ivory MD pre op for hysterectomy, bp 3308a399-0l1j-8prm-zve3-dwm21yyy059d 09/19/2013 09/19/2013 Amrit Ivory MD pre op for hysterectomy, bp tksk703z-wlb8-5n98-09n7-zn9v53z4456d 09/19/2013 09/19/2013 Amrit Ivory MD pre op for hysterectomy, bp 96i83u4w-9b37-3xga-4772-k277tq5648na 09/19/2013 09/19/2013 Amrit Ivory MD pre op for hysterectomy, bp bje5w716-n1e9-7011-9806-6oq8ef69028u 09/19/2013 09/19/2013 Amrit Ivory MD pre op for hysterectomy, bp j29dcl71-c19g-537f-v003-79765jqdah79 09/19/2013 09/19/2013 Amrit Ivory MD Test results 02m91ix7-p98c-98a5-d946-9cz5h2509333 09/20/2013 09/20/2013 Amrit Ivory MD Test results ml04ct01-315u-84l3-i378-528447dv872j 09/20/2013 09/20/2013 Amrit Ivory MD Test results 62y1otju-k6f0-47q8-ycqx-934u9308ja23 09/20/2013 09/20/2013 Amrit Ivory MD Test results 5r738k9p-36g3-3h93-98e2-245834633y7r 09/20/2013 09/20/2013 Amrit Ivory MD Test results 7f65c419-09q3-1rl6-i29g-f45j9n45252v 09/20/2013 09/20/2013 Amrit Ivory MD Test results dqb6rx2b-69sl-03r5-96d7-ufb719h9603o 09/20/2013 09/20/2013 Amrit Ivory MD Test results 25973902-j965-7v72-5541-d0x6kc1ka131 09/20/2013 09/20/2013 Amrit Ivory MD Test results 13n24483-42d4-7e85-1431-b1j95675q98q 09/20/2013 09/20/2013 Amrit Ivory MD Test results a106nyc9-q4ib-321e-a1g4-97u28392mu72 09/20/2013 09/20/2013 Amrit Ivory MD Test results 78fw73k2-rj55-94cp-gx6y-612g2dpmq81r 09/20/2013 09/20/2013 Amrit Ivory MD Test results 57du0803-69lg-75ve-mu82-938m8nz2e762 09/20/2013 09/20/2013 Amrit Ivory MD Test results an2t8m03-l92y-6246-2b42-t1z6s1492e24 09/20/2013 09/20/2013 Amrit Ivory MD Test results 98q9380h-5kk7-007t-x9ky-95804x9227hc 09/20/2013 09/20/2013 Amrit Ivory MD Test results v6m24p23-6a93-1i40-ri19-16u81f2fg712 09/20/2013 09/20/2013 Amrit Ivory MD Test results i530d07u-4mz7-1y27-cv6s-4538d1l0v5j7 09/21/2013 09/21/2013 Amrit Ivory MD Test results 8o1zf44y-b88w-8gn4-i216-g4770602bj00 09/21/2013 09/21/2013 Amirt Ivory MD Test results 5a0q024v-0239-8j90-zb7z-s50z58ji72kr 09/21/2013 09/21/2013 Amrit Ivory MD Test results 6e395p85-1342-5amt-7u9i-8ck682yf3r2r 09/21/2013 09/21/2013 Amrit Ivory MD Test results 4e2439t0-388z-61q1-1178-498yu39z2t9p 09/21/2013 09/21/2013 Amrit Ivory MD Test results 66n11x37-n9pt-1t00-q669-509815r1c7ni 09/21/2013 09/21/2013 Amrit Ivory MD Test results 20376194-dk7a-5c93-nk1b-v042769612z0 09/21/2013 09/21/2013 Amrit Ivory MD Test results 5z77q1o5-8t6w-46w3-8561-4th6iffy84h4 09/21/2013 09/21/2013 Amrit Ivory MD Test results w06n83j0-4x7p-5eas-3017-pgm2g4706c49 09/21/2013 09/21/2013 Amrit Ivory MD Test results 345a97o9-9083-479j-4mdy-sbkm5531v619 09/21/2013 09/21/2013 Amrit Ivory MD Test results a0xz25p5-1j6s-18e2-v326-08x2619197e2 09/21/2013 09/21/2013 Amrit Ivory MD Test results c53p6rb8-h6gh-28y3-i308-94u1bizk9w19 09/21/2013 09/21/2013 Amrit Ivory MD Test results 4282ue24-1477-37t8-3948-3h18390mu6o3 09/21/2013 09/21/2013 Amrit Ivory MD Test results 5965lwz1-r071-7o5u-9754-9uif0r01rdhi 09/21/2013 09/21/2013 Amrit Ivory MD Test results 3y5mqc4p-510j-00z3-ux0a-1608t790r004 09/21/2013 09/21/2013 Amrit Ivory MD Test results 2j5ke74m-50j0-2l30-59g7-qst2l98yz18d 09/21/2013 09/21/2013 Amrit Ivory MD Test results ma7uo236-yn38-402o-8o41-n2t1r34c0w06 09/21/2013 09/21/2013 Amrit Ivory MD Test results 99kv6950-8z50-0396-l1ea-09463s08587f 09/21/2013 09/21/2013 Amrit Ivory MD 2 wk bp jose g af0p6147-4523-4502-zd1u-t59z6k0987s0 10/09/2013 10/09/2013 Amrit Ivory MD 2 wk bp ojse g 7h36sjr3-9z9l-8441-1v86-796ngd0o2ub8 10/09/2013 10/09/2013 Amrit Ivory MD 2 wk bp jose g 14122b19-782y-367t-cs96-930740i14759 10/09/2013 10/09/2013 Amrit Ivory MD 2 wk bp jose g i0v7491y-6149-0g53-1as0-0jh02791o910 10/09/2013 10/09/2013 Amrit Ivory MD 2 wk bp jose g 1ybe36j2-7g3k-7a09-sh11-ub1f3r93y478 10/09/2013 10/09/2013 Amrit Ivory MD 2 wk bp jose g d12tb210-0028-54vm-015q-41z7d15ztl09 10/09/2013 10/09/2013 Amrit Ivory MD 2 wk bp jose g f92y82wf-67lw-07wd-n366-n8l7py815d96 10/09/2013 10/09/2013 Amrit Ivory MD 2 wk bp jose g 95144407-pt00-426h-ny0k-b54436mwc902 10/09/2013 10/09/2013 Amrit Ivory MD 2 wk bp jose g c2y23782-1437-9z14-5541-c788bvk32565 10/09/2013 10/09/2013 Amrit Ivory MD 2 wk bp jose g 74379b5i-v917-1kew-5209-74bje0992a98 10/09/2013 10/09/2013 Amrit Ivory MD 2 wk bp jose g 9211ivu6-690f-38ht-5594-384834v9jisd 10/09/2013 10/09/2013 Amrit Ivory MD 2 wk bp jose g 658130k1-3j6c-6b73-kzjb-59h6n82i62kw 10/09/2013 10/09/2013 Amrit Ivory MD 2 wk bp jose g 043z431b-7546-3a27-rn6l-7t617934y594 10/09/2013 10/09/2013 Amrit Ivory MD 2 wk bp jose g 1b50w947-y04k-1y31-k259-z4j8059r6v89 10/09/2013 10/09/2013 Amrit Ivory MD Other 72z836qu-h1f6-2ux5-465e-g4644d1s7b12 10/09/2013 10/09/2013 Amrit Ivory MD Other 4yco29n4-2469-3919-rrgp-1298dz4o7900 10/09/2013 10/09/2013 Amrit Ivory MD Other gv25fb81-h84j-7153-25i6-6od196470138 10/09/2013 10/09/2013 Amrit Ivory MD Other 295407r1-v06y-54c0-d122-257owl1l31o1 10/09/2013 10/09/2013 Amrit Ivory MD Other 55qa58k8-a586-1808-k176-gh1bw73od580 10/09/2013 10/09/2013 Amrit Ivory MD Other 90j87d36-e155-9m49-e655-4s9080421778 10/09/2013 10/09/2013 Amrit Ivory MD Other 8a390j99-5203-73o9-y7b1-j5e41044yo57 10/09/2013 10/09/2013 Amrit Ivory MD Other sqo8x3l3-4383-7y51-b124-w6j23l324wx1 10/09/2013 10/09/2013 Amrit Ivory MD Other 3tfg3gw3-0347-749x-0070-i6g0xlqf1p57 10/09/2013 10/09/2013 Amrit Ivory MD Other 9495n380-e5ja-518v-27yr-wn98o707j8t8 10/09/2013 10/09/2013 Amrit Ivory MD Other 60q8h7c5-b788-2ffp-m677-rf8pw9005f99 10/09/2013 10/09/2013 Amrit Ivory MD Other 42j9549s-0280-09wj-h25f-273f44809493 10/09/2013 10/09/2013 Amrit Ivory MD Other oh30d66x-pr78-57h7-orb1-6g39881f68sm 10/09/2013 10/09/2013 Amrit Ivory MD Other 020gj952-4f4v-3796-0058-51674j9l146d 10/09/2013 10/09/2013 Amrit Ivory MD 2 wk bp jose g 174383pf-794g-0586-820d-w8z3u6h39q18 10/09/2013 10/09/2013 Amrit Ivory MD 2 wk bp jose g 90bb4x8a-c888-73fl-8238-05s85q096850 10/09/2013 10/09/2013 Amrit Ivory MD 2 wk bp jose g jz2y0882-63t2-6s78-4yul-4869vr02tz16 10/09/2013 10/09/2013 Amrit Ivory MD 2 wk bp jose g q6ta305q-20f4-4453-4il4-87uu8075f5a0 10/09/2013 10/09/2013 Amrit Ivory MD 2 wk bp jose g 88971ea5-6hk9-8580-iqip-57d3107719i9 10/09/2013 10/09/2013 Amrit Ivory MD 2 wk bp jose g 318v2732-2w2j-00l4-6z96-56v9yqm67m51 10/09/2013 10/09/2013 Amrit Ivory MD 2 wk bp jose g 7d3r5792-753u-81i5-j7lo-9746o39945ac 10/09/2013 10/09/2013 Amrit Ivory MD 2 wk bp jose g 0346h41j-a9ip-963c-28b1-a34stik54dq5 10/09/2013 10/09/2013 Amrit Ivory MD 2 wk bp jose g 5p62z2w9-7335-6j52-0b2d-ezj4a1a9x1g6 10/09/2013 10/09/2013 Amrit Ivory MD 2 wk bp jose g 36o170r4-8563-5h55-8141-238re636129s 10/09/2013 10/09/2013 Amrit Ivory MD 2 wk bp jose g m8w7nv7s-r4y3-2ctt-2uce-u0405n92x46l 10/09/2013 10/09/2013 Amrit Ivory MD 2 wk bp jose g 88b66y2h-50c7-8037-3l58-5i9qf64230he 10/09/2013 10/09/2013 Amrit Ivory MD 2 wk bp jose g 5580n362-32x9-0w9p-3l41-k23n391574n1 10/09/2013 10/09/2013 Amrit Ivory MD 2 wk bp jose g 7g12955x-787t-6r39-z05n-rc97719t702i 10/09/2013 10/09/2013 Amrit Ivory MD 2 wk bp jose g 8e24n462-zp1b-608p-0c24-3582913v6z13 10/09/2013 10/09/2013 Amrit Ivory MD 2 wk bp jose g xue6p1fj-2349-0k25-k6y3-186n8sye9gbg 10/09/2013 10/09/2013 Amrit Ivory MD Other 9c4ow0a8-zj63-2n95-vna6-c5meu61h5v50 10/09/2013 10/09/2013 Amrit Ivory MD Other 0gaz24q7-n96m-8130-z6p6-381eb49uv1p0 10/09/2013 10/09/2013 Amrit Ivory MD Other w0fior02-53l7-3p0b-7e3f-3eqz6ec76os2 10/09/2013 10/09/2013 Amrit Ivory MD Other 54w49f2m-gah9-53s7-9u8d-zfv740jgt2h7 10/09/2013 10/09/2013 Amrit Ivory MD Other am60j41w-9231-0t90-25ka-761c02369345 10/09/2013 10/09/2013 Amrit Ivory MD Other 98563d7h-33q3-1361-4543-zf0q559d7m44 10/09/2013 10/09/2013 Amrit Ivory MD Other 81002u27-s1gt-540p-o723-939qylbt2512 10/09/2013 10/09/2013 Amrit Ivory MD Other 22it9lff-8k05-9so5-8347-23s268872817 10/09/2013 10/09/2013 Amrit Ivory MD Other 0934x031-9i94-2351-u092-646513g385x8 10/09/2013 10/09/2013 Amrit Ivory MD Other rb39b24v-q5cq-7zx5-s2m3-b50y6326w224 10/09/2013 10/09/2013 Amrit Ivory MD Other g638774y-64b9-958s-uvx1-7310mr8c2u92 10/09/2013 10/09/2013 Amrit Ivory MD Other 5e4gp0jm-0lnn-120q-03qz-q50545x18200 10/09/2013 10/09/2013 Amrit Ivory MD Other 6l17t4f7-4241-84u5-777p-1pyir34y99f4 10/09/2013 10/09/2013 Amrit Ivory MD Other 8587l63q-e5i0-008b-z674-5j883rx064bt 10/09/2013 10/09/2013 Amrit Ivory MD Other x232ynr2-4o31-6644-0a84-l16f6cf4l82a 10/09/2013 10/09/2013 Amrit Ivory MD Other b508e31x-7702-8194-k274-9f9j7486jv77 10/09/2013 10/09/2013 Amrit Ivory MD pre op- historectomy 3686u71o-uy63-7173-60tv-3013gs61s118 01/01/2014 01/01/2014 Amrit Ivory MD pre op- historectomy 21qt8e0i-838j-371g-j7p1-5j63p2l1w2j1 01/01/2014 01/01/2014 Amrit Ivory MD pre op- historectomy 0y18772s-d182-1n36-jx1w-80e8775f46m2 01/01/2014 01/01/2014 Amrit Ivory MD pre op- historectomy oz493m93-229q-9825-9ly1-24431gs19w16 01/01/2014 01/01/2014 Amrit Ivory MD pre op- historectomy 5w313326-0015-988g-x7rd-80e716qg34ji 01/01/2014 01/01/2014 Amrit Ivory MD pre op- historectomy 0k0r7c60-a5iy-3wvi-8y11-546059v9cu37 01/01/2014 01/01/2014 Amrit Ivory MD pre op- historectomy ow9r3w9a-v2a3-919i-1whi-7gfxci67ci54 01/01/2014 01/01/2014 Amrit Ivory MD pre op- historectomy 69r0h3uh-e701-831z-05id-5ly42920s548 01/01/2014 01/01/2014 Amrit Ivory MD pre op- historectomy g0y142h0-00ja-9h6e-u75k-w1f224180687 01/01/2014 01/01/2014 Amrit Ivory MD pre op- historectomy 0q2f49hp-7s47-5r8m-l162-88l1d6996992 01/01/2014 01/01/2014 Amrit Ivory MD pre op- historectomy 3dm07075-5d47-8k80-t4v9-193968k21q72 01/01/2014 01/01/2014 Amrit Ivory MD pre op- historectomy 9140x0m4-85r6-8p72-x0x4-7kh49txva345 01/01/2014 01/01/2014 Amrit Ivory MD pre op- historectomy byeo0qg6-9ae2-3qu6-95t4-677ic4439tqd 01/01/2014 01/01/2014 Amrit Ivory MD pre op- historectomy 78887802-4084-19g8-qc3d-s2j41v839u33 01/01/2014 01/01/2014 Amrit Ivory [facility] [id number] Amrit Ivory 01/01/2014 01/02/2014 [facility] Amrit Ivory MD pre op- historectomy 553405l1-6sen-9h6o-3j52-42exz21xua25 01/01/2014 01/01/2014 Amrit Ivory MD pre op- historectomy cd47x741-o716-3669-ogw4-m95vj24c9x88 01/01/2014 01/01/2014 Amrit Ivory MD pre op- historectomy e1z3s0qk-5160-483k-k496-x04e5q41a955 01/01/2014 01/01/2014 Amrit Ivory MD pre op- historectomy 68zn091u-8000-0o7x-20t3-6fdo5022o5z4 01/01/2014 01/01/2014 Amrit Ivory MD pre op- historectomy 21q6g9v4-70pv-096x-atil-q372ljv577h5 01/01/2014 01/01/2014 Amrit Ivory MD pre op- historectomy 51340c48-7p61-2170-422c-0l05a098qe5m 01/01/2014 01/01/2014 Amrit Ivory MD pre op- historectomy 64yx5l57-e43o-6327-7534-23575d2p2afl 01/01/2014 01/01/2014 Amrit Ivory MD pre op- historectomy b613614d-55yk-5292-o18a-f63lr048w724 01/01/2014 01/01/2014 Amrit Ivory MD pre op- historectomy dyu3032v-hjz0-4100-5s02-u8801c0jn7z8 01/01/2014 01/01/2014 Amrit Ivory MD pre op- historectomy 156q87bn-a657-2d6b-762a-m5o7b032y8b8 01/01/2014 01/01/2014 Amrit Ivory MD pre op- historectomy 8k3ac7w2-3566-13e7-q083-98947as6r0i2 01/01/2014 01/01/2014 Amrit Ivory MD pre op- historectomy 004r1929-w01m-3788-2r58-636rh76ya3z8 01/01/2014 01/01/2014 Amrit Ivory MD pre op- historectomy xu0029g0-f3s0-3g9y-y2fc-7u93g05g0x1o 01/01/2014 01/01/2014 Amrit Ivory MD pre op- historectomy 32n7nt90-val2-127s-ne4m-s65qohtn349n 01/01/2014 01/01/2014 Amrit Ivory MD Test results 7b578442-4992-029p-l979-5y44zwt9o84e 01/01/2014 01/01/2014 Amrit Ivory MD Test results 310ab129-h6w9-724y-n0u2-16x4t919v2x5 01/01/2014 01/01/2014 Amrit Ivory MD Test results cofm3k83-9484-8t34-zo58-k287yz535211 01/01/2014 01/01/2014 Amrit Ivory MD Test results hr940194-65x9-89v0-77w6-4213b94q51w3 01/01/2014 01/01/2014 Amrit Ivory MD Test results 895pw4n0-d099-62a8-o20c-k7372387ux58 01/01/2014 01/01/2014 Amrit Ivory MD Test results 757361g7-vk36-6165-s148-5n7oa2038jag 01/01/2014 01/01/2014 Amrit Ivory MD Test results 5t47p1w8-og78-64o1-22u2-9p0135l0sc17 01/01/2014 01/01/2014 Amrit Ivory MD Test results 49115878-w7o5-137p-9004-6e92e30dvg6c 01/01/2014 01/01/2014 Amrit Ivory MD Test results k7q37zo1-e7zf-17tt-x3ow-q25r9sk69gcl 01/01/2014 01/01/2014 Amrit Ivory MD Test results 66zme31i-647g-4v55-g578-s001yv1d1a51 01/01/2014 01/01/2014 Amrit Ivory MD Test results 7nn2lvb3-017b-2b68-1ch2-896q3y89569c 01/01/2014 01/01/2014 Amrit Ivory MD Test results 9yi125nr-73v8-538q-gj06-9h61983x0fp3 01/01/2014 01/01/2014 Amrit Ivory MD Test results s3e6y800-p86z-93c8-0643-19e1ix3u4298 01/01/2014 01/01/2014 Amrit Ivory MD Test results c9738j2u-4709-09n0-7wad-5k901358j48w 01/01/2014 01/01/2014 Amrit Ivory MD Test results g0972208-9km7-79a3-lc63-t34z94zw2wup 01/02/2014 01/02/2014 Amrit Ivory MD Test results j92v6hn7-o9ug-7rop-2a60-p7kj32t77m8i 01/02/2014 01/02/2014 Amrit Ivory MD Test results 5c4n0gji-4u83-2zd6-w6gn-1ay1ed4893f3 01/02/2014 01/02/2014 Amrit Ivory MD Test results yji84748-9n96-66yp-9ch9-o24r46u7vi2t 01/02/2014 01/02/2014 Amrit Ivory MD Test results 2d456fs5-vs67-1d24-c6g5-wl3on675luf3 01/02/2014 01/02/2014 Amrit Ivory MD Test results 514o5o60-5765-7f01-2zcs-8p445q0m5e9w 01/02/2014 01/02/2014 Amrit Ivory MD Test results 6v18512z-1d45-45s8-3n01-18pq665668si 01/02/2014 01/02/2014 Amrit Ivory MD Test results u5kz60jc-7x5y-26a1-984e-6515tl5ohf3h 01/02/2014 01/02/2014 Amrit Ivory MD Test results r8g67f93-7buq-1955-3085-85you8480000 01/02/2014 01/02/2014 Amrit Ivory MD Test results 47z04074-0p50-07u2-620v-2b414u99qjfw 01/02/2014 01/02/2014 Amrit Ivory MD Test results 64d66z42-yn1d-0203-3427-d34nknen6058 01/02/2014 01/02/2014 Amrit Ivory MD Test results 7u76079q-1mu5-0u7v-167z-86u130ti5y0h 01/02/2014 01/02/2014 Amrit Ivory MD Test results r7425869-a223-1977-597j-2q0080416ts5 01/02/2014 01/02/2014 Amrit Ivory MD Test results j9585423-7v70-0217-0yq7-7ra8978e789s 01/02/2014 01/02/2014 Amrit Ivory MD 3mo bp, chol, dm ck liver 5213cx3c-4qt1-92wa-0479-v1u553rmu42u 03/06/2014 03/06/2014 Amrit Ivory MD 3mo bp, chol, dm ck liver 7my32446-767p-64v5-h175-7sqq7070xa6a 03/06/2014 03/06/2014 Amrit Ivory MD 3mo bp, chol, dm ck liver 336hj1jh-6802-0327-tc9l-12hpc61e2u84 03/06/2014 03/06/2014 Amrit Ivory MD 3mo bp, chol, dm ck liver [id number]-k0ov-09x8j6o4cex3 03/06/2014 03/06/2014 Amrit Ivory MD 3mo bp, chol, dm ck liver [id number]-[id number]-1cfti83zk572 03/06/2014 03/06/2014 Amrit Ivory MD 3mo bp, chol, dm ck liver [id number]-si5m-41ix644z5v44 03/06/2014 03/06/2014 Amrit Ivory MD 3mo bp, chol, dm ck liver tmq3q389-i4l7-24pt-d120-6e4k876552su 03/06/2014 03/06/2014 Amrit Ivory MD 3mo bp, chol, dm ck liver nz9o840p-[id number] 03/06/2014 03/06/2014 Amrit Ivory MD 3mo bp, chol, dm ck liver 06ta8p70-5p02-75aq-2h00-0431k7807u89 03/06/2014 03/06/2014 Amrit Ivory MD 3mo bp, chol, dm ck liver [id number]-z1zn-8122g8n42h31 03/06/2014 03/06/2014 Amrit Ivory MD 3mo bp, chol, dm ck liver [id number] 03/06/2014 03/06/2014 Amrit Ivory MD 3mo bp, chol, dm ck liver [id number]-8y43-99v5-0508-7mf3v4c7xv39 03/06/2014 03/06/2014 Amrit Ivory MD 3mo bp, chol, dm ck liver 136zb2cm-36po-52c3-l256-co0gvpun2i04 03/06/2014 03/06/2014 Amrit Ivory MD 3mo bp, chol, dm ck liver [id number]-a24c-3550d0227056 03/06/2014 03/06/2014 Amrit Ivory MD 3mo bp, chol, dm ck liver fow1ycs6-e0r5-1xal-4e57-l26f265rj3l2 03/06/2014 03/06/2014 Amrit Ivory MD 3mo bp, chol, dm ck liver [id number]-c2si86aq64kb 03/06/2014 03/06/2014 Amrit Ivory MD 3mo bp, chol, dm ck liver p23i57jt-w4fd-19a6-k120-3qk008ze1xol 03/06/2014 03/06/2014 Amrit Ivory MD 3mo bp, chol, dm ck liver [id number]-8468-2br17q466j3w 03/06/2014 03/06/2014 Amrit Ivory MD 3mo bp, chol, dm ck liver [id number]-4x6234878ez8 03/06/2014 03/06/2014 Amrit Ivory MD 3mo bp, chol, dm ck liver [id number]-126p-4a7a6389g67i 03/06/2014 03/06/2014 Amrit Ivory MD 3mo bp, chol, dm ck liver [id number]-nd29l5r1rt72 03/06/2014 03/06/2014 Amrit Ivory MD 3mo bp, chol, dm ck liver 12394s8n-fs0w-1nr6-h2m9-uy95z2972gkn 03/06/2014 03/06/2014 Amrit Ivory MD 3mo bp, chol, dm ck liver [id number]-09il-4b89-695o3z525zg1 03/06/2014 03/06/2014 Amrit Ivory MD 3mo bp, chol, dm ck liver 5stl143i-8gxf-9m9i-6583-3ov6355972q0 03/06/2014 03/06/2014 Amrit Ivory MD 3mo bp, chol, dm ck liver 94l1uz0n-aa7y-9p1m-477s-88uv0r58soi5 03/06/2014 03/06/2014 Amrit Ivory MD 3mo bp, chol, dm ck liver [id number]-d1lp-9j7wu210zh5f 03/06/2014 03/06/2014 Amrit Ivory MD Test results [id number] 03/10/2014 03/10/2014 Amrit Ivory MD Test results [id number]-992q-x87qixk02ku5 03/10/2014 03/10/2014 Amrit Ivory MD Test results [id number]-74sl-3700gr18o91f 03/10/2014 03/10/2014 Amrit Ivory MD Test results [id number]-y6381pheoz53 03/10/2014 03/10/2014 Amrit Ivory MD Test results [id number] 03/10/2014 03/10/2014 Amrit Ivory MD Test results [id number]-y858-1m53-l44r-3k4196g94h71 03/10/2014 03/10/2014 Amrit Ivory MD Test results 74w5uiz1-qf80-8hjc-0clj-p0j1j2nn1m6v 03/10/2014 03/10/2014 Amrit Ivory MD Test results [id number]-[id number] 03/10/2014 03/10/2014 Amrit Ivory MD Test results [id number]-94j3-n41vv4902u8y 03/10/2014 03/10/2014 Amrit Ivory MD Test results [id number]-wpvr-593804d9iv17 03/10/2014 03/10/2014 Amrit Ivory MD Test results [id number]-7jg2-8pn7-y8y9wlb9if2v 03/10/2014 03/10/2014 Amrit Ivory MD Test results [id number] 03/11/2014 03/11/2014 Amrit Ivory MD Test results [id number]-75fl-9cy4-j2nj518r405x 03/11/2014 03/11/2014 Amrit Ivory MD Test results [id number]-vls3-i34k515z6063 03/11/2014 03/11/2014 Amrit Ivory MD Test results [id number]-7359-njr3-097182gx056a 03/11/2014 03/11/2014 Amrit Ivory MD Test results [id number]-94z7-[id number] 03/11/2014 03/11/2014 Amrit Ivory MD Test results [id number]549 03/11/2014 03/11/2014 Amrit Ivory MD Test results [id number]-i64b-9v1163b09392 03/11/2014 03/11/2014 Amrit Ivory MD Test results 323z1pi9-86f7-3oj9-fx5w-62h2dg403r0t 03/11/2014 03/11/2014 Amrit Ivory MD Test results [id number]-[id number] 03/11/2014 03/11/2014 Amrit Ivory MD Test results [id number]-4y37658xwhd3 03/11/2014 03/11/2014 Amrit Ivory MD Test results [id number] 03/11/2014 03/11/2014 Amrit Ivory MD Test results [id number]-[id number] 03/11/2014 03/11/2014 Amrit Ivory MD Test results [id number] 03/11/2014 03/11/2014 Amrit Ivory MD Test results [id number]-[id number]-sv94a513852o 03/11/2014 03/11/2014 Amrit Ivory MD Lorazepam g46897t2-l067-10sg-nc5c-88p9j940gkxf 04/30/2014 04/30/2014 Amrit Ivory MD Lorazepam [id number]-z950c78194f3 04/30/2014 04/30/2014 Amrit Ivory MD Lorazepam 6rl4p3r5-yj84-3m8g-q446-2l1x12j9lwgt 04/30/2014 04/30/2014 Amrit Ivory MD Lorazepam vzn60932-zb66-26z1-652v-96o84u6qc7e5 04/30/2014 04/30/2014 Amrit Ivory MD Lorazepam f9p0k363-39qy-7w3l-nf2y-jk8xxm6e18tk 04/30/2014 04/30/2014 Amrit Ivory MD Lorazepam 05m48z82-5588-511x-ybim-r857r74n89q6 04/30/2014 04/30/2014 Amrit Ivory MD Lorazepam 5p75f842-z3cp-4zb7-1ig1-6289533ba2t3 04/30/2014 04/30/2014 Amrit Ivory MD Lorazepam pi58044j-k6x8-30c1-[id number] 04/30/2014 04/30/2014 Amrit Ivory MD Lorazepam [id number]-u44f-92a15z916gr5 04/30/2014 04/30/2014 Amrit Ivory MD Lorazepam 47b05z68-1046-2009-x5r9-6g85s35jz4sw 04/30/2014 04/30/2014 Amrit Ivory MD Lorazepam 5100zdo0-sz32-96t3-4304-4v9810fnz285 04/30/2014 04/30/2014 Amrit Ivory MD Lorazepam 623i2i32-7lss-90jf-b545-rq98jg7bpitn 04/30/2014 04/30/2014 Amrit Ivory MD Lorazepam opqsgs79-u469-5x7n-h6vx-0l5792ucwqic 04/30/2014 04/30/2014 Amrit Ivory MD Lorazepam 6v66x1x2-1c4c-4oju-b842-[id number] 04/30/2014 04/30/2014 Amrit Ivory MD Lorazepam [id number]-299g-b2a4-594l63897975 04/30/2014 04/30/2014 Amrit Ivory MD Lorazepam 45km2l9o-w22h-82f4-y758-9373604aymp5 04/30/2014 04/30/2014 Armit Ivory MD Lorazepam xc22zymd-x1si-0ohh-042b-4m849sk089nu 04/30/2014 04/30/2014 Amrit Ivory MD Lorazepam 0ege1219-c834-22f5-vnz2-r18092j6rs0f 04/30/2014 04/30/2014 Amrit Ivory MD Lorazepam l8f6935m-3sh0-2vqs-h51a-3z8yhzbd0o96 04/30/2014 04/30/2014 Amrit Ivory MD Lorazepam 937tm809-455k-46n0-gyc5-532hyu69e13w 04/30/2014 04/30/2014 Amrit Ivory MD Lorazepam lg77421q-6y2w-9335-o2r1-wts5a68bk26z 04/30/2014 04/30/2014 Amrit Ivory MD Lorazepam 354l3506-3371-433m-0ha8-m94k2g9nen4a 04/30/2014 04/30/2014 Amrit Ivory MD Lorazepam 83l86i9s-2l9l-0fm7-xu8w-266h0708438g 04/30/2014 04/30/2014 Amrit Ivory MD Lorazepam 554mur56-5032-6e02-49l8-tp2s96q0c316 04/30/2014 04/30/2014 Amrit Ivory MD 6mo bp, chol dm ck 374gg243-w399-5paf-0031-185w420s0m0o 09/03/2014 09/03/2014 Amrit Ivory MD 6mo bp, chol dm ck 44a362yq-885p-2b91-rd1x-20084x03cbig 09/03/2014 09/03/2014 Amrit Ivory MD 6mo bp, chol dm ck [id number]-7b13-69iwoyiz2889 09/03/2014 09/03/2014 Amrit Ivory MD 6mo bp, chol dm ck [id number]-lm49-4ops1628w7l8 09/03/2014 09/03/2014 Amrit Ivory MD 6mo bp, chol dm ck [id number]-q82391en8w17 09/03/2014 09/03/2014 Amrit Ivory MD 6mo bp, chol dm ck 34dd081f-357k-45km-8l18-r3563x050h01 09/03/2014 09/03/2014 Amrit Ivory MD 6mo bp, chol dm ck 6677y4i1-2evy-0o35-3243-723v2yz3s0f5 09/03/2014 09/03/2014 Amrit Ivory MD 6mo bp, chol dm ck 54a6bu3c-bfni-08ff-qcu4-fd1c07515930 09/03/2014 09/03/2014 Amrit Ivory MD 6mo bp, chol dm ck [id number]f46 09/03/2014 09/03/2014 Amrit Ivory MD 6mo bp, chol dm ck 79fs6bl7-433l-25bu-d76p-782hn9pr3858 09/03/2014 09/03/2014 Amrit Ivory MD 6mo bp, chol dm ck 6r134l9c-514m-756s-w2qu-344hek7j9325 09/03/2014 09/03/2014 Amrit Ivory MD 6mo bp, chol dm ck [id number]-81b9-795k-hj95-2d6v311y9u93 09/03/2014 09/03/2014 Amrit Ivory MD 6mo bp, chol dm ck [id number]-c9xs-0iou-ssp4-q8vrr07486l4 09/03/2014 09/03/2014 Amrit Ivory MD 6mo bp, chol dm ck [id number]-377e-t2h7-[id number] 09/03/2014 09/03/2014 Amrit Ivory MD 6mo bp, chol dm ck 16q7661e-8z23-0z6m-98jc-427icne0aiq0 09/03/2014 09/03/2014 Amrit Ivory MD 6mo bp, chol dm ck [id number]-t6xd-4034h9996a13 09/03/2014 09/03/2014 Amrit Ivory MD 6mo bp, chol dm ck 6497x172-z142-6n01-ni02-2d78u45216tx 09/03/2014 09/03/2014 Amrit Ivory MD 6mo bp, chol dm ck t7e8mzq1-60m8-937m-0g66-5du493y8s6w9 09/03/2014 09/03/2014 Amrit Ivory MD 6mo bp, chol dm ck [id number]-j7b2-p684q9bz0ct8 09/03/2014 09/03/2014 Amrit Ivory MD 6mo bp, chol dm ck 69gg9f4g-2845-9em9-4663-5096w7wex92b 09/03/2014 09/03/2014 Amrit Ivory MD 6mo bp, chol dm ck f0gw66z0-v74e-7148-628j-638s341tata3 09/03/2014 09/03/2014 Amrit Ivory MD 6mo bp, chol dm ck 8oo34dq4-9599-76q3-52gj-96w7q64c5789 09/03/2014 09/03/2014 Amrit Ivory MD 6mo bp, chol dm ck [id number]-63wv-ql5k-qo2c32430790 09/03/2014 09/03/2014 Amrit Ivory MD 6mo bp, chol dm ck 42zl87j8-bn6t-5au2-k35r-9763r83793m8 09/03/2014 09/03/2014 Amrit Ivory MD Test results [id number]-k1fd-on04j411k4g2 09/04/2014 09/04/2014 Amrit Iovry MD Test results [id number]-941y-30a0s4k898fs 09/04/2014 09/04/2014 Amrit Ivory MD Test results [id number]-007w-a016-553u5a0lg117 09/04/2014 09/04/2014 Amrit Ivory MD Test results [id number]-216c-sl2ts05313gt 09/04/2014 09/04/2014 Amrit Ivory MD Test results [id number]-7230-7w30-25g932sht019 09/04/2014 09/04/2014 Amrit Ivory MD Test results [id number]-37kb-446nd6d15599 09/04/2014 09/04/2014 Amrit Ivory MD Test results [id number]-n99h-64z4-2cb9-6o374ie89s7r 09/04/2014 09/04/2014 Amrit Ivory MD Test results [id number]-3522-22bn-8578-2r0386oo021e 09/04/2014 09/04/2014 Amrit Ivory MD Test results m3kj2yq2-5xl6-6624-rf5o-76y406t50v4n 09/04/2014 09/04/2014 Amrit Ivory MD Test results [id number]-u74et062xa74 09/04/2014 09/04/2014 Amrit Ivory MD Test results [id number] 09/04/2014 09/04/2014 Amrit Ivory MD Test results x814io0y-a5j3-40b4-1ok7-08og5xufa777 09/04/2014 09/04/2014 Amrit Ivory MD Test results [id number]-41f3-2s86-308d4w277814 09/04/2014 09/04/2014 Amrit Ivory MD Test results 17h138zx-q68w-2692-f0dl-u1861ll52610 09/04/2014 09/04/2014 Amrit Ivory MD Test results s92d03dx-2lza-6145-6l45-a65q115d2j44 09/04/2014 09/04/2014 Amrit Ivory MD Test results ns4uv1xb-wkju-14n4-50n5-0n2491s5351q 09/04/2014 09/04/2014 Amrit Ivory MD Test results y503whyp-snfy-013q-p17v-64wfx0yx1619 09/04/2014 09/04/2014 Amrit Ivory MD Test results si50ytz9-00j5-5090-n7y4-2jotd22oq10p 09/04/2014 09/04/2014 Amrit Ivory MD Test results [id number]-6abz-28am-x1u2-61382666ixy8 09/04/2014 09/04/2014 Amrit Ivory MD Test results y5i1sf10-1710-77v4-t102-47d1236q0dhp 09/04/2014 09/04/2014 Amrit Ivory MD Test results v550ccoz-j3m1-7295-1649-m5871635g78g 09/04/2014 09/04/2014 Amrit Ivory MD Test results [id number]-95f5-ws53-4p35i9k7m748 09/04/2014 09/04/2014 Amrit Ivory MD Test results [id number] 09/04/2014 09/04/2014 Amrit Ivory MD 3mo bp, chol dm ck 579417q3-r146-280p-a789-5k5n239he3m5 12/02/2014 12/02/2014 Amrit Ivory MD 3mo bp, chol dm ck 9p5z32c6-n0t2-26h2-41bb-9x7494n6t08g 12/02/2014 12/02/2014 Amirt Ivory MD 3mo bp, chol dm ck 12diu334-9n2v-2059-7ow1-2d35z7y62sv8 12/02/2014 12/02/2014 Amrit Ivory MD 3mo bp, chol dm ck m88zm8c9-370t-660k-j955-8p12t88q9603 12/02/2014 12/02/2014 Amrit Ivory MD 3mo bp, chol dm ck xf04s5m6-x054-5t40-6vrx-yb12t96183d5 12/02/2014 12/02/2014 Amrit Ivory MD 3mo bp, chol dm ck h25zc440-829n-0541-0b09-vkz9v9v2g291 12/02/2014 12/02/2014 Amrit Ivory MD 3mo bp, chol dm ck 7h51j431-hj96-36pe-ewuj-2q3792a9x604 12/02/2014 12/02/2014 Amrit Ivory MD 3mo bp, chol dm ck 3w27037a-nl2u-9g67-j5ib-58s6602t205y 12/02/2014 12/02/2014 Amrit Ivory MD o bp, chol dm ck 12938z66-m55t-2sq2-gc85-ile9110iw5hw 12/02/2014 12/02/2014 Amrit Ivory MD 3mo bp, chol dm ck 2q6yb598-3765-2378-7z63-446obi597r34 12/02/2014 12/02/2014 Amrit Ivory MD o bp, chol dm ck z45469m5-g698-6o0p-2xuu-935879k97044 12/02/2014 12/02/2014 Amrit Ivory MD 3mo bp, chol dm ck ho67z663-f6c1-7w80-21j4-8sno032g9gne 12/02/2014 12/02/2014 Amrit Ivory MD 3mo bp, chol dm ck 399gahe3-0688-321w-f358-k69n8wa4nj56 12/02/2014 12/02/2014 Amrit Ivory MD 3mo bp, chol dm ck e47i7411-3tvs-538x-g2i6-ffss7ut02591 12/02/2014 12/02/2014 Amrit Ivory MD 3mo bp, chol dm ck 13rq176h-q4o7-2prg-k891-719z992l3jp1 12/02/2014 12/02/2014 Amrit Ivory MD 3mo bp, chol dm ck 18q8q516-3114-98z0-j440-b3320392wd94 12/02/2014 12/02/2014 Amrit Ivory MD 3mo bp, chol dm ck 3fg6336h-xkj7-9864-c944-924u8180buk9 12/02/2014 12/02/2014 Amrit Ivory MD 3mo bp, chol dm ck 8g750y94-yf77-15j8-0w92-72v95x8vws85 12/02/2014 12/02/2014 Amrit Ivory MD 3mo bp, chol dm ck a9xuml21-62ln-4814-q21e-15414z45ox63 12/02/2014 12/02/2014 Amrit Ivory MD 3mo bp, chol dm ck cq51zo41-e963-8nf9-mm5q-99zp2u786811 12/02/2014 12/02/2014 Amrit Ivory MD 3mo bp, chol dm ck q7k81ukf-09qy-535g-31ss-ik452n88j7h4 12/02/2014 12/02/2014 Amrit Ivory MD 3mo bp, chol dm ck je10s1e2-d5ki-2992-hl7t-1278ti8kd1jc 12/02/2014 12/02/2014 Amrit Ivory MD Test results 5qnw6xxl-yk6c-61xl-9g34-63816m6k3448 12/03/2014 12/03/2014 Amrit Ivory MD Test results [id number]-441b-k7rj92c9jp54 12/03/2014 12/03/2014 Amrit Ivory MD Test results op4s11ag-d108-7909-257n-80k858169049 12/03/2014 12/03/2014 Amrit Ivory MD Test results 569i27j4-2d21-2560-ar68-928ol24a293p 12/03/2014 12/03/2014 Amrit Ivory MD Test results n24p088f-t10b-0l60-1991-l77739lmcf57 12/03/2014 12/03/2014 Amrit Ivory MD Test results 296rg31n-1317-0e58-4jt4-9636vyj7k93p 12/03/2014 12/03/2014 Amrit Ivory MD Test results j50g82s3-97k7-4p24-r07e-9x4gw566952a 12/03/2014 12/03/2014 Amrit Ivory MD Test results 82t10se1-s990-1742-y7p0-rf7k6580on75 12/03/2014 12/03/2014 Amrit Ivory MD Test results ps484o57-93fy-51f4-31o2-2797868r04n4 12/03/2014 12/03/2014 Amrit Ivory MD Test results 72q8y17p-593v-4xz3-f383-031s3406e222 12/03/2014 12/03/2014 Amrit Ivory MD Test results [id number]-2076-59311572d121 12/03/2014 12/03/2014 Amrit Ivory MD Test results 221qjrsx-hah4-8te98fc5-wg41-m578r055282t 12/03/2014 12/03/2014 Amrit Ivory MD Test results 3tv61678-6feo-5au2-bs88-12m4v69l0s12 12/03/2014 12/03/2014 Amrit Ivory MD Test results 2mc44g4d-r84o-88mo-f710-6y3u8a2697n5 12/03/2014 12/03/2014 Amrit Ivory MD Test results k8gi92g1-27vl-0c28-4142-9i9858dl378r 12/03/2014 12/03/2014 Amrit Ivory MD Test results 666q5817-0e36-0c7d-a0c0-wtp716tm9631 12/03/2014 12/03/2014 Amrit Ivory MD Test results js97pvx6-93r2-249h-z1bz-jlu5808b1r22 12/03/2014 12/03/2014 Amrit Ivory MD Test results 30t453d0-f7n9-9g21-vl83-0rwzt1gnz26s 12/03/2014 12/03/2014 Amrit Ivory MD Test results 8kmueh55-7n74-751h-0d7y-a91b166c0x2f 12/03/2014 12/03/2014 Amrit Ivory MD Test results 7757nj65-9jz7-6413-l234-p8l7y4840u38 12/03/2014 12/03/2014 Amrit Ivory MD Test results 5rtsqzyy-vc7a-6s2mow5n-6k8b-b08i-0tlr9v6uh47h 12/03/2014 12/03/2014 Amrit Ivory MD Test results [id number]-2po5-76x2-5i69-0y0a5ha29v78 12/03/2014 12/03/2014 Amrti Ivory [facility] [id number] Slim Leonard 03/19/2015 03/20/2015 [facility] Amrit Ivory MD bp,chol 454e2290-6gkj-2mr6-ng2v-627vo2545l96 06/15/2015 06/15/2015 Amrit Ivory MD bp,chol 50b97io4-j918-1a00-e36f-j785pyk8zep2 06/15/2015 06/15/2015 Amrit Ivory MD bp,chol 706513f5-r220-17q8-9vk2-65du578e49r2 06/15/2015 06/15/2015 Amrit Ivory MD bp,chol 357u3jbw-0902-7016-q2ea-93c42p04qae1 06/15/2015 06/15/2015 Amrit Ivory MD bp,chol 7192e958-612f-43m4-mfi1-84vg6c410bs6 06/15/2015 06/15/2015 Amrit Ivory MD bp,chol 5232rf63-9771-8801-y358-70lleonl32ai 06/15/2015 06/15/2015 Amrit Ivory MD bp,chol 63893456-g625-2503-q5d7-d878r3vqe55c 06/15/2015 06/15/2015 Amrit Ivory MD bp,chol 576tm46j-4c03-9303-77k4-4d5i73a81664 06/15/2015 06/15/2015 Amrit Ivory MD bp,chol 6qvi080b-d469-0598-8n38-b928l415k53g 06/15/2015 06/15/2015 Amrit Ivory MD bp,chol 1175r6x4-99k8-39g6-ns69-o156219n62s7 06/15/2015 06/15/2015 Amrit Ivory MD bp,chol 6v5312zj-j8yr-6477-qh52-i2i18q529m9q 06/15/2015 06/15/2015 Amrit Ivory MD bp,chol ig44969x-79q0-6h56-d719-ir77jh98mp8f 06/15/2015 06/15/2015 Amrit Ivory MD bp,chol 5o28i59d-s9d6-8729-zds1-6h3wdyla8078 06/15/2015 06/15/2015 Amrit Ivory MD bp,chol e5761v38-nnfk-0585-e329-cl91k1zayf3j 06/15/2015 06/15/2015 Amrit Ivory MD bp,chol 0y52fk7o-co0u-927m-h331-q8w4504jo2ho 06/15/2015 06/15/2015 Amrit Ivory MD bp,chol x755755x-i51j-620q-g526-2zow2540f1j9 06/15/2015 06/15/2015 Amrit Ivory MD bp,chol ph668r38-1p99-340b-b199-857790024356 06/15/2015 06/15/2015 Amrit Ivory MD bp,chol 07411k27-7juz-9q97-1d24-69g5pxg5h7k5 06/15/2015 06/15/2015 Amrit Ivory MD bp,chol s4y72k27-6896-384e-l6m2-627316559896 06/15/2015 06/15/2015 Amrit Ivory MD bp,chol 1ta9524w-4z7n-266g-4274-r68x2947375i 06/15/2015 06/15/2015 Amrit Ivory MD bp,chol mgqtcgoy-2279-61o964q6-z579-4i16q0634s02 06/15/2015 06/15/2015 Amrit Ivory MD bp,chol 47631t8b-3598-3l1a-jr56-70wkzm3ezy28 06/15/2015 06/15/2015 Amrit Ivory MD Test results 59m16p70-2o37-0563-vm19-618r03v66me0 07/18/2015 07/18/2015 Amrit Ivory MD Test results i6292447-1429-57bw-s211-3z0q2zyz4x60 07/18/2015 07/18/2015 Amrit Ivory MD Test results i44f1d88-3671-2992-8253-wm0rr1u7k438 07/18/2015 07/18/2015 Amrit Ivory MD Test results qo6jp05c-1936-5l22-y7e3-76ow487rf5f1 07/18/2015 07/18/2015 Amrit Ivory MD Test results jvf25665-4498-1nk0-n156-dj96915d0c71 07/18/2015 07/18/2015 Amrit Ivory MD Test results 1c9ye72a-te8f-49j8-kju2-p391rti8nh4s 07/18/2015 07/18/2015 Amrit Ivory MD Test results 393a4o75-j94q-9568-lvk6-4f4q57mn170s 07/18/2015 07/18/2015 Amrit Ivory MD Test results j1gc880d-5830-5525-mq71-t5849njfv36j 07/18/2015 07/18/2015 Amrit Ivory MD Test results l81yc611-83q2-743d-t219-641xn6p76771 07/18/2015 07/18/2015 Amrit Ivory MD Test results 2317g675-49bw-178y-g52o-41542gjrs517 07/18/2015 07/18/2015 Amrit Ivory MD Test results 14078z64-g567-99ls-86l9-0d12w56w80q4 07/18/2015 07/18/2015 Amrit Ivory MD Test results 0o05239e-5hd9-05bf-me70-r369sw48zay1 07/18/2015 07/18/2015 Amrit Ivory MD Test results 76226g1v-29or-442v-25ci-i5n7z08d652p 07/18/2015 07/18/2015 Amrit Ivory MD Test results n5b4fal6-pe07-9d38-6758-1ztbg1xt34nt 07/18/2015 07/18/2015 Amrit Ivory MD Test results 6pl2v223-r0un-709v-os81-zu1d7x6zyp9y 07/18/2015 07/18/2015 Amrit Ivory MD Test results om991068-58c5-1zz6-k66x-6q1j72q75c78 07/18/2015 07/18/2015 Amrit Ivory MD Test results yy50on79-932t-0785-90xy-25936977a6xd 07/18/2015 07/18/2015 Amrit Ivory MD Test results e5v2rl00-zx28-1dq8-860z-i58n1716cff5 07/18/2015 07/18/2015 Amrit Ivory MD Test results 22e7990j-1ag3-26l3-9322-5167c5111t9d 07/18/2015 07/18/2015 Amrit Ivory MD Test results 6rzp0m65-9e43-3c0e-lbca-23k9ys97gl79 07/18/2015 07/18/2015 Amrit Ivory MD Test results 0u4hl67n-8343-5c1o-v7f5-94g9k6llo307 07/18/2015 07/18/2015 Amrit Ivory MD abd pain (since MONDAY) 24i9d74m-4o23-2569-137x-5x096v29o6vm 11/24/2015 11/24/2015 Amrit Ivory MD abd pain (since MONDAY) r2rt4hk2-c801-2e5j-hy5w-9216477y2269 11/24/2015 11/24/2015 Amrit Ivory MD abd pain (since MONDAY) f9g003k2-vczi-7515-fmdt-l7sqf4uacv5k 11/24/2015 11/24/2015 Amrit Ivory MD abd pain (since MONDAY) aluv2x60-5g92-4967-4c7u-8o456f325279 11/24/2015 11/24/2015 Amrit Ivory MD abd pain (since MONDAY) 6h0gj448-3n4k-1ev7-al19-pfh753h7d061 11/24/2015 11/24/2015 Amrit Ivory MD abd pain (since MONDAY) 82v9o0vc-2566-1wr6-eew0-193u7o7029fb 11/24/2015 11/24/2015 Amrit Ivory MD abd pain (since MONDAY) 5hd9s198-h237-1s9i-o3zc-xy53tg4811sb 11/24/2015 11/24/2015 Amrit Ivory MD abd pain (since MONDAY) 13ur77du-1g13-9i2m-a10b-3o08o886l385 11/24/2015 11/24/2015 Amrit Ivory MD abd pain (since MONDAY) fm59p7v0-6660-6769-z320-lx618d2j804u 11/24/2015 11/24/2015 Amrit Ivory MD abd pain (since MONDAY) m56j493k-74c4-5hxi-xc8v-4m46t0y72z02 11/24/2015 11/24/2015 Amrit Ivory MD abd pain (since MONDAY) teb0z17d-0u40-15ro-69sw-9469255o2509 11/24/2015 11/24/2015 Amrit Ivory MD abd pain (since MONDAY) 21e534y8-4968-826d-6p58-609czo0rpy17 11/24/2015 11/24/2015 Amrit Ivory MD abd pain (since MONDAY) jg233764-646e-42g4-5t66-d9h38916m8t3 11/24/2015 11/24/2015 Amrit Ivory MD abd pain (since MONDAY) 93rav571-3328-178n-v081-h18y595p88a8 11/24/2015 11/24/2015 Amrit Ivory MD abd pain (since MONDAY) n5rug0ft-p771-380u-m93s-5k8135u004n5 11/24/2015 11/24/2015 Amrit Ivory MD abd pain (since MONDAY) 14173w31-q396-7f44-78nl-b9349429s04n 11/24/2015 11/24/2015 Amrit Ivory MD abd pain (since MONDAY) 851hvu35-q1n6-310z-z557-dfdws5tpb5b5 11/24/2015 11/24/2015 Amrit Ivory MD abd pain (since MONDAY) in65q19y-ptr5-3l66-cof9-hq54irzu5u3x 11/24/2015 11/24/2015 Amrit Ivory MD abd pain (since MONDAY) ki8z94m3-96j0-194y-4rmv-z43747j81m5m 11/24/2015 11/24/2015 Amrit Ivory MD abd pain (since MONDAY) vv79i91l-0705-4r5a-ft7a-4y657kl18163 11/24/2015 11/24/2015 Amrit Ivory MD Clinical Advice During Business Hours 974l97dc-5r3y-8h0p-5m4j-5d462687609b 12/04/2015 12/04/2015 Amrit Ivory MD Clinical Advice During Business Hours 4k276329-447n-7882-t461-4157kv3v9694 12/04/2015 12/04/2015 Amrit Ivory MD Clinical Advice During Business Hours 60d5h323-57cj-251m-907x-62264h26g979 12/04/2015 12/04/2015 Amrit Ivory MD Clinical Advice During Business Hours 71625p06-v9oj-30n5-3616-87nwnj1x778o 12/04/2015 12/04/2015 Amrit Ivory MD Clinical Advice During Business Hours 609v64e2-8s94-9b6n-jq46-48de4757t28u 12/04/2015 12/04/2015 Amrit Ivory MD Clinical Advice During Business Hours [id number]-[id number]-292315326v3z 12/04/2015 12/04/2015 Amrit Ivory MD Clinical Advice During Business Hours er80n4jz-0273-63s1-13w2-wh461600w3me 12/04/2015 12/04/2015 Amrit Ivory MD Clinical Advice During Business Hours hj00s8a4-x752-840g-n843-48o4771txoi3 12/04/2015 12/04/2015 Amrit Ivory MD Clinical Advice During Business Hours om6841t3-329s-8849-94vv-h2r79yvs5b98 12/04/2015 12/04/2015 Amrit Ivory MD Clinical Advice During Business Hours th61b876-550a-4q7b-q73w-s0642s2o3y46 12/04/2015 12/04/2015 Amrit Ivory MD Clinical Advice During Business Hours 14dxnx91-92i4-82id-tz9r-5c69853h541g 12/04/2015 12/04/2015 Amrit Ivory MD Clinical Advice During Business Hours b858890m-22v0-71ew-j540-whr0o6k853x0 12/04/2015 12/04/2015 Amrit Ivory MD Clinical Advice During Business Hours lu78s299-i648-44pb-c20o-85673t7j627v 12/04/2015 12/04/2015 Amrit Ivory MD Clinical Advice During Business Hours 853y6084-wlq9-89us-944b-s8m3535ubn1w 12/04/2015 12/04/2015 Amrit Ivory MD Clinical Advice During Business Hours 4b99a5e9-5275-52j2-1376-69w377281a35 12/04/2015 12/04/2015 Amrit Ivory MD Clinical Advice During Business Hours vq6w9559-41o0-5kma-y2x9-c6s6e5xnaxu5 12/04/2015 12/04/2015 Amrit Ivory MD Clinical Advice During Business Hours 36l8u9z4-n28i-9556-6522-a3c1xq44lj70 12/04/2015 12/04/2015 Amrit Ivory MD Clinical Advice During Business Hours [id number] 12/04/2015 12/04/2015 Amrit Ivory MD Clinical Advice During Business Hours 062dl2sp-o5k8-3jv2-qx8v-7hc5po48qlv1 12/04/2015 12/04/2015 Amrit Ivory MD ear ache, feels like somthing in throat 488w1466-150z-3f00-d8h8-ii47v3cgah69 12/18/2015 12/18/2015 Amrit Ivory MD ear ache, feels like somthing in throat yncefnlh-tpx4-9615-8v49-279b46583932 12/18/2015 12/18/2015 Amrit Ivory MD ear ache, feels like somthing in throat 31s1f14s-x522-40p6-l577-xcth4t42c438 12/18/2015 12/18/2015 Amrit Ivory MD ear ache, feels like somthing in throat f29a942l-37ox-0gl9-7nuy-63ap96x9f5q8 12/18/2015 12/18/2015 Amrit Ivory MD ear ache, feels like somthing in throat 23smb52o-15qk-7gwp-yag4-s8992k7a7821 12/18/2015 12/18/2015 Amrit Ivory MD ear ache, feels like somthing in throat 20b5u660-1npf-52d9-67g5-0bp891ps14h9 12/18/2015 12/18/2015 Amrit Ivory MD ear ache, feels like somthing in throat t48n3665-xzi7-4ol5-o553-570214ou0085 12/18/2015 12/18/2015 Amrit Ivory MD ear ache, feels like somthing in throat b427x662-357f-90jy-s7ze-644fem12qd6g 12/18/2015 12/18/2015 Amrit Ivory MD ear ache, feels like somthing in throat 725hj160-n50b-5a26-6ga2-tj2gj2n34it0 12/18/2015 12/18/2015 Amrit Ivory MD ear ache, feels like somthing in throat k68k8333-vz04-262l-kiu2-4991o23nk877 12/18/2015 12/18/2015 Amrit Ivory MD ear ache, feels like somthing in throat g6wm158z-p4f8-92s5-t142-2137j3vut609 12/18/2015 12/18/2015 Amrit Ivory MD ear ache, feels like somthing in throat 2l362799-8095-2672-i22s-8i0r16ab098v 12/18/2015 12/18/2015 Amrit Ivory MD ear ache, feels like somthing in throat bv37xv5f-3ks0-58m0-i3j0-v1677o9x9fzk 12/18/2015 12/18/2015 Amrit Ivory MD ear ache, feels like somthing in throat 8n2xry34-3a8m-7xp5-vt9g-1j1035n0818x 12/18/2015 12/18/2015 Amrit Ivory MD ear ache, feels like somthing in throat [id number] 12/18/2015 12/18/2015 Amrit Ivory MD ear ache, feels like somthing in throat [id number] 12/18/2015 12/18/2015 Amrit Ivory MD ear ache, feels like somthing in throat [id number] 12/18/2015 12/18/2015 Amrit Ivory MD ear ache, feels like somthing in throat [id number] 12/18/2015 12/18/2015 Amrit Ivory MD Mammogram Letter [id number] 01/06/2016 01/06/2016 Amrit Ivory MD Mammogram Letter [id number] 01/06/2016 01/06/2016 Amrit Ivory MD Mammogram Letter [id number] 01/06/2016 01/06/2016 Amrit Ivory MD Mammogram Letter [id number] 01/06/2016 01/06/2016 Amrit Ivory MD Mammogram Letter [id number] 01/06/2016 01/06/2016 Amrit Ivory MD Mammogram Letter [id number] 01/06/2016 01/06/2016 Amrit Ivory MD Mammogram Letter [id number] 01/06/2016 01/06/2016 Amrit Ivory MD Mammogram Letter [id number] 01/06/2016 01/06/2016 Amrit Ivory MD Mammogram Letter [id number] 01/06/2016 01/06/2016 Amrit Ivory MD Mammogram Letter [id number] 01/06/2016 01/06/2016 Amrit Ivory MD Mammogram Letter [id number] 01/06/2016 01/06/2016 Amrit Ivory MD Mammogram Letter [id number] 01/06/2016 01/06/2016 Amrit Ivory MD Mammogram Letter [id number] 01/06/2016 01/06/2016 Amrit Ivory MD Mammogram Letter [id number] 01/06/2016 01/06/2016 Amrit Ivory MD Mammogram Letter [id number] 01/06/2016 01/06/2016 Amrit Ivory MD Mammogram Letter [id number] 01/06/2016 01/06/2016 Amrit Ivory MD Mammogram Letter [id number] 01/06/2016 01/06/2016 Amrit Ivory MD [facility] [id number] 01/12/2016 01/12/2016 Amrit Ivory MD Needs referral - ENT [id number] 01/12/2016 01/12/2016 Amrit Ivory MD Needs referral - ENT [id number] 01/12/2016 01/12/2016 Amrit Ivory MD Needs referral - ENT [id number] 01/12/2016 01/12/2016 Amrit Ivory MD Needs referral - ENT [id number] 01/12/2016 01/12/2016 Amrit Ivory MD Needs referral - ENT [id number] 01/12/2016 01/12/2016 Amrit Ivory MD Needs referral - ENT [id number] 01/12/2016 01/12/2016 Amrit Ivory MD Needs referral - ENT [id number] 01/12/2016 01/12/2016 Amrit Ivory MD Needs referral - ENT [id number] 01/12/2016 01/12/2016 Amrit Ivory MD Needs referral - ENT [id number] 01/12/2016 01/12/2016 Amrit Ivory MD Needs referral - ENT [id number] 01/12/2016 01/12/2016 Amrit Ivory MD Needs referral - ENT [id number] 01/12/2016 01/12/2016 Amrit Ivory MD Needs referral - ENT [id number] 01/12/2016 01/12/2016 Amrit Ivory MD Needs referral - ENT [id number] 01/12/2016 01/12/2016 Amrit Ivory MD Needs referral - ENT [id number] 01/12/2016 01/12/2016 Amrit Ivory MD Needs referral - ENT [id number] 01/12/2016 01/12/2016 Amrit Ivory MD bp,chol,dm [id number] 01/26/2016 01/26/2016 Amrit Ivory MD bp,chol,dm [id number] 01/26/2016 01/26/2016 Amrit Ivory MD bp,chol,dm [id number] 01/26/2016 01/26/2016 Amrit Ivory MD bp,chol,dm [id number] 01/26/2016 01/26/2016 Amrit Ivory MD bp,chol,dm [id number] 01/26/2016 01/26/2016 Amrit Ivory MD bp,chol,dm [id number]-m879-2mp875f3o14r 01/26/2016 01/26/2016 Amrit Ivory MD bp,chol,dm [id number] 01/26/2016 01/26/2016 Amrit Ivory MD bp,chol,dm [id number] 01/26/2016 01/26/2016 Amrit Ivory MD bp,chol,dm [id number]-[id number] 01/26/2016 01/26/2016 Amrit Ivory MD bp,chol,dm [id number] 01/26/2016 01/26/2016 Amrit Ivory MD bp,chol,dm [id number]-59lt-388q-c51zz94y80yb 01/26/2016 01/26/2016 Amrit Ivory MD bp,chol,dm [id number] 01/26/2016 01/26/2016 Amrit Ivory MD bp,chol,dm [id number] 01/26/2016 01/26/2016 Amrit Ivory MD bp,chol,dm [id number] 01/26/2016 01/26/2016 Amrit Ivory MD bp,chol,dm [id number] 01/26/2016 01/26/2016 Amrit Ivory MD Test results [id number] 02/16/2016 02/16/2016 Amrit Ivory MD Test results [id number] 02/16/2016 02/16/2016 Amrit Ivory MD Test results [id number] 02/16/2016 02/16/2016 Amrit Ivory MD Test results [id number] 02/16/2016 02/16/2016 Amrit Ivory MD Test results [id number] 02/17/2016 02/17/2016 Amrit Ivory MD Test results [id number] 02/17/2016 02/17/2016 Amrit Ivory MD Test results [id number] 02/17/2016 02/17/2016 Amrit Ivory MD Test results [id number] 02/17/2016 02/17/2016 Amrit Ivory MD Test results [id number] 02/17/2016 02/17/2016 Amrit Ivory MD Test results [id number] 02/17/2016 02/17/2016 Amrit Ivory MD Test results [id number] 02/17/2016 02/17/2016 Amrit Ivory MD Test results [id number] 02/17/2016 02/17/2016 Amrit Ivory MD Test results [id number] 02/17/2016 02/17/2016 Amrit Ivory MD Test results [id number] 02/17/2016 02/17/2016 Amrit Ivory MD Refill - 90d Losartan [id number] 02/22/2016 02/22/2016 Amrit Ivory MD Refill - 90d Losartan [id number] 02/22/2016 02/22/2016 Amrit Ivory MD Refill - 90d Losartan [id number] 02/22/2016 02/22/2016 Amrit Ivory MD Refill - 90d Losartan [id number] 02/22/2016 02/22/2016 Amrit Ivory MD Refill - 90d Losartan [id number] 02/22/2016 02/22/2016 Amrit Ivory MD Refill - 90d Losartan [id number] 02/22/2016 02/22/2016 Amrit Ivory MD Refill - 90d Losartan [id number] 02/22/2016 02/22/2016 Amrit Ivory MD Refill - 90d Losartan [id number] 02/22/2016 02/22/2016 Amrit Ivory MD Refill - 90d Losartan [id number] 02/22/2016 02/22/2016 Amrit Ivory MD Refill - 90d Losartan [id number] 02/22/2016 02/22/2016 Amrit Ivory MD Refill - 90d Losartan [id number] 02/22/2016 02/22/2016 Amrit Ivory MD Refill - 90d Losartan [id number] 02/22/2016 02/22/2016 Amrit Ivory MD Refill - 90d Losartan [id number] 02/22/2016 02/22/2016 Amrit Ivory MD back pain [id number] 03/25/2016 03/25/2016 Amrit Ivory MD back pain [id number] 03/25/2016 03/25/2016 Amrit Ivory MD back pain [id number] 03/25/2016 03/25/2016 Amrit Ivory MD back pain [id number] 03/25/2016 03/25/2016 Amrit Ivory MD back pain [id number] 03/25/2016 03/25/2016 Amrit Ivory MD back pain [id number] 03/25/2016 03/25/2016 Amrit Ivory MD back pain [id number] 03/25/2016 03/25/2016 Amrit Ivory MD back pain [id number] 03/25/2016 03/25/2016 Amrit Ivory MD back pain [id number] 03/25/2016 03/25/2016 Amrit Ivory MD back pain [id number] 03/25/2016 03/25/2016 Amrit Ivory MD back pain [id number] 03/25/2016 03/25/2016 Amrit Ivory MD back pain [id number] 03/25/2016 03/25/2016 Amrit Ivory MD Test results [id number] 03/28/2016 03/28/2016 Amrit Ivory MD Test results [id number] 03/28/2016 03/28/2016 Amrit Ivory MD Test results [id number] 03/29/2016 03/29/2016 Amrit Ivory MD Test results [id number] 03/29/2016 03/29/2016 Amrit Ivory MD Test results [id number] 03/29/2016 03/29/2016 Amrit Ivory MD Test results [id number] 03/29/2016 03/29/2016 Amrit Ivory MD Test results [id number] 03/29/2016 03/29/2016 Amrit Ivory MD Test results [id number] 03/29/2016 03/29/2016 Amrit Ivory MD Test results [id number] 03/29/2016 03/29/2016 Amrit Ivory MD Test results [id number] 03/29/2016 03/29/2016 Amrit Ivory MD Test results [id number] 03/29/2016 03/29/2016 Amrit Ivory MD Test results [id number] 03/29/2016 03/29/2016 Amrit Ivory MD Clinical Advice During Business Hours [id number] 08/03/2016 08/03/2016 Amrit Ivory MD Clinical Advice During Business Hours [id number] 08/03/2016 08/03/2016 Amrit Ivory MD Clinical Advice During Business Hours [id number] 08/03/2016 08/03/2016 Amrit Ivory MD Clinical Advice During Business Hours [id number] 08/03/2016 08/03/2016 Amrit Ivory MD Clinical Advice During Business Hours [id number] 08/03/2016 08/03/2016 Amrit Ivory MD Clinical Advice During Business Hours [id number] 08/03/2016 08/03/2016 Amrit Ivory MD Clinical Advice During Business Hours [id number] 08/03/2016 08/03/2016 Amrit Ivory MD Clinical Advice During Business Hours [id number] 08/03/2016 08/03/2016 Amrit Ivory MD Clinical Advice During Business Hours [id number] 08/03/2016 08/03/2016 Amrit Ivory MD Clinical Advice During Business Hours [id number] 08/03/2016 08/03/2016 Amrit Ivory MD 6mo bp, chol, dm ck [id number] 08/29/2016 08/29/2016 Amrit Ivory MD 6mo bp, chol, dm ck [id number] 08/29/2016 08/29/2016 Amrit Ivory MD 6mo bp, chol, dm ck [id number] 08/29/2016 08/29/2016 Amrit Ivory MD 6mo bp, chol, dm ck [id number] 08/29/2016 08/29/2016 Amrit Ivory MD 6mo bp, chol, dm ck [id number] 08/29/2016 08/29/2016 Amrit Ivory MD 6mo bp, chol, dm ck [id number] 08/29/2016 08/29/2016 Amrit Ivory MD 6mo bp, chol, dm ck [id number] 08/29/2016 08/29/2016 Amrit Ivory MD 6mo bp, chol, dm ck [id number] 08/29/2016 08/29/2016 Amrit Ivory MD 6mo bp, chol, dm ck [id number] 08/29/2016 08/29/2016 Amrit Ivroy MD Test results [id number] 09/02/2016 09/02/2016 Amrit Ivory MD Test results [id number] 09/02/2016 09/02/2016 Amrit Ivory MD Test results [id number] 09/02/2016 09/02/2016 Amrit Ivory MD Test results [id number] 09/02/2016 09/02/2016 Amrit Ivory MD Test results [id number] 09/02/2016 09/02/2016 Amrit Ivory MD Test results [id number] 09/02/2016 09/02/2016 Amrit Ivory MD Test results [id number] 09/02/2016 09/02/2016 Amrit Ivory MD Test results [id number] 09/02/2016 09/02/2016 Amrit Ivory MD Test results [id number] 09/02/2016 09/02/2016 Amrit Ivory MD Test results [id number] 09/02/2016 09/02/2016 Amrit Ivory MD Test results [id number] 09/02/2016 09/02/2016 Amrit Ivory MD Test results [id number] 09/02/2016 09/02/2016 Amrit Ivory MD Test results [id number] 09/02/2016 09/02/2016 Amrit Ivory MD Test results [id number] 09/02/2016 09/02/2016 Amrit Ivory MD Test results [id number] 09/02/2016 09/02/2016 Amrit Ivory MD diverticulitis [id number] 09/09/2016 09/09/2016 Amrit Ivory MD diverticulitis [id number] 09/09/2016 09/09/2016 Amrit Ivory MD diverticulitis [id number] 09/09/2016 09/09/2016 Amrit Ivory MD diverticulitis [id number] 09/09/2016 09/09/2016 Amrit Ivory MD diverticulitis [id number] 09/09/2016 09/09/2016 Amrit Ivory MD diverticulitis [id number] 09/09/2016 09/09/2016 Amrit Ivory [facility] [id number] Amrit Ivory 09/10/2016 09/11/2016 [facility] Amrit Ivory MD Test results [id number] 09/10/2016 09/10/2016 Amrit Ivory MD Test results [id number] 09/10/2016 09/10/2016 Amrit Ivory MD Test results [id number] 09/10/2016 09/10/2016 Amrit Ivory MD Test results [id number] 09/10/2016 09/10/2016 Amrit Ivory MD Test results [id number] 09/10/2016 09/10/2016 Amrit Ivory MD Test results [id number] 09/10/2016 09/10/2016 Amrit Ivory MD Test results [id number] 09/10/2016 09/10/2016 Amrit Ivory MD Test results [id number] 09/10/2016 09/10/2016 Amrit Ivory MD Test results [id number] 09/10/2016 09/10/2016 Amrit Ivory MD Test results [id number] 09/10/2016 09/10/2016 Amrit Ivory MD Galbladder giving her spasm [id number] 10/14/2016 10/14/2016 Amrit Ivory MD Galbladder giving her spasm [id number] 10/14/2016 10/14/2016 Amrit Ivory MD Galbladder giving her spasm [id number] 10/14/2016 10/14/2016 Amrit Ivory MD Other - PA for HIDA Scan [id number] 10/14/2016 10/14/2016 Amrit Ivory MD Other - PA for HIDA Scan [id number] 10/14/2016 10/14/2016 Amrit Ivory MD Other - PA for HIDA Scan [id number] 10/14/2016 10/14/2016 Amrit Ivory [facility] Outpatient [id number] Amrit Ivory 10/18/2016 10/19/2016 [facility] Amrit Ivory MD Test results [id number] 10/19/2016 10/19/2016 Amrit Ivory [facility] Outpatient [id number] Amrit Ivory 03/01/2017 03/02/2017 [facility] [id number] Mike Dawson 03/29/2017 03/29/2017 [facility]patient [id number] Amrit Coronadolio 05/09/2017 05/10/2017 [facility] [id number] Amrit Ivory 06/22/2017 06/23/2017 [facility] Outpatient [id number] Brissa Obrien 11/23/2018 Active [facility] Inpatient [id number] Rian Marie 11/23/2018 11/25/2018 [facility] Outpatient [id number] Amrit Ivory 12/06/2018 12/07/2018 [facility] Procedures Procedure Code Date Perfomer Comments Source section<sup>1</sup> [id number] x4 [facility] Hysterectomy [id number] [facility]
--- OUTSIDE RECORDS SUMMARY | 2018-12-22 09:09 | XMS REPORT ---
Author Author Amrit Ivory Organization [employer] Address Unknown Phone Unavailable Care Team Providers Care Emissions Testing Technician Name Role Phone Amrit Ivory CP Unavailable Allergies No Known Allergies Problems Problem Type Condition Code Onset Dates Condition Status Problem Mild major depression F32.0 Active Problem Type 2 diabetes mellitus with hyperglycemia, without long-term current use of insulin E11.65 Active Problem Hypercholesterolemia E78.00 Active Problem Abdominal wall hernia K43.9 Active Problem Symptomatic varicose veins, bilateral I83.893 Active Problem Psychological stress F43.9 Active Problem Fatty liver disease, nonalcoholic K76.0 Active Problem Family history of heart disease Z82.49 Active Problem Non morbid obesity due to excess calories E66.09 Active Problem Essential hypertension I10 Active Medications Medication Code System Code Instructions Start Date End Date Status Dosage Levsin/SL [facility] [address]-87 0.125 MG Sublingual every 4 hrs February 10, 2017 February 15, 2017 Active 1 tablet under the tongue and allow to dissolve before meals as needed Lomotil [facility] [address]-93 2.5-0.025 MG Orally Every four hours February 10, 2017 February 15, 2017 Active 1 tablet as needed Results No Known Results Summary Purpose [employer] Submission
--- OUTSIDE RECORDS SUMMARY | 2018-12-22 09:09 | XMS REPORT ---
Author Author Amrit Ivory Organization [employer] Address Unknown Phone Unavailable Care Team Providers Care Hogshead Salvage Name Role Phone Amrit Ivory CP Unavailable Allergies No Known Allergies Problems Problem Type Condition Code Onset Dates Condition Status Problem Hypercholesterolemia E78.00 Active Problem Family history of heart disease Z82.49 Active Problem Type 2 diabetes mellitus with hyperglycemia, without long-term current use of insulin E11.65 Active Problem Mild major depression F32.0 Active Problem Psychological stress F43.9 Active Problem Abdominal wall hernia K43.9 Active Problem Cholelithiasis without cholangitis K80.20 Active Problem Essential hypertension I10 Active Problem Fatty liver disease, nonalcoholic K76.0 Active Problem Symptomatic varicose veins, bilateral I83.893 Active Problem Non morbid obesity due to excess calories E66.09 Active Medications No Known Medications Results No Known Results Summary Purpose [employer] Submission
--- OUTSIDE RECORDS SUMMARY | 2018-12-22 09:09 | XMS REPORT ---
Author Author Amrit Ivory Organization [employer] Address Unknown Phone Unavailable Care Team Providers Care Metal Door Assembler Name Role Phone Amrit Ivory CP Unavailable Allergies, Adverse Reactions, Alerts Substance Reaction Event Type Sulfur Info Not Available Drug Allergy Lisinopril cough Drug Allergy Problems Problem Type Condition Code Onset Dates Condition Status Problem Hypercholesterolemia E78.00 Active Problem Family history of heart disease Z82.49 Active Problem Type 2 diabetes mellitus with hyperglycemia, without long-term current use of insulin E11.65 Active Problem Psychological stress F43.9 Active Problem Abdominal wall hernia K43.9 Active Problem Cholelithiasis without cholangitis K80.20 Active Problem Essential hypertension I10 Active Problem Fatty liver disease, nonalcoholic K76.0 Active Problem Symptomatic varicose veins, bilateral I83.893 Active Problem Non morbid obesity due to excess calories E66.09 Active Assessment Cholelithiasis without cholangitis K80.20 Active Assessment Abdominal wall hernia K43.9 Active Assessment Generalized abdominal pain R10.84 Active Problem Mild major depression F32.0 Active Medications Medication Code System Code Instructions Start Date End Date Status Dosage Vitamin D [facility] [address]-47 1000 UNIT Orally Once a day Active 2 tablets Lorazepam [facility] [address]-72 0.5 MG Orally once a day Mar 25, 2016 Active 1 tablet Metformin HCl [facility] [address]-96 1000 mg Orally once a day Jun 15, 2015 Active 2 tablets Losartan Potassium [facility] 47588332368 100 mg Orally Once a day Active 1 tablet Lexapro [facility] [address]-43 10 MG Orally Once a day prn February 03, 2017 Active 1 tablet Co Q 10 [facility] [address]281 60 MG Orally Once a day Active 1 capsule with a meal Vital Signs Date/Time: March 01, 2017 BMI 38.97 Index Weight 220 lbs Height 63 in Cardiac Monitoring Heart Rate 76 /min Blood Pressure Diastolic 76 mm Hg Blood Pressure Systolic 124 mm Hg Results No Known Results Summary Purpose [employer]Works Submission
--- OUTSIDE RECORDS SUMMARY | 2018-12-22 09:09 | XMS REPORT ---
Author Author Amrit Ivory Organization [employer] Address Unknown Phone Unavailable Care Team Providers Care As400 Developer Name Role Phone Amrit Ivory CP Unavailable Allergies, Adverse Reactions, Alerts Substance Reaction Event Type Sulfur Info Not Available Drug Allergy Lisinopril cough Drug Allergy Problems Problem Type Condition Code Onset Dates Condition Status Problem Hypercholesterolemia E78.00 Active Problem Essential hypertension I10 Active Problem Type 2 diabetes mellitus with hyperglycemia, without long-term current use of insulin E11.65 Active Problem Type 2 diabetes mellitus without complication, without long-term current use of insulin E11.9 Active Problem Psychological stress F43.9 Active Problem Symptomatic varicose veins of both lower extremities I83.893 Active Problem Non morbid obesity due to excess calories E66.09 Active Problem Fatty liver disease, nonalcoholic K76.0 Active Problem Abdominal wall hernia K43.9 Active Problem Symptomatic varicose veins, bilateral I83.893 Active Assessment Non morbid obesity due to excess calories E66.09 Active Assessment Symptomatic varicose veins of both lower extremities I83.893 Active Assessment BMI 39.0-39.9,adult Z68.39 Active Assessment Type 2 diabetes mellitus with hyperglycemia, without long-term current use of insulin E11.65 Active Assessment Essential hypertension I10 Active Assessment Fatty liver disease, nonalcoholic K76.0 Active Problem Family history of heart disease Z82.49 Active Assessment Hypercholesterolemia E78.00 Active Problem Mild major depression F32.0 Active Medications Medication Code System Code Instructions Start Date End Date Status Dosage Metformin HCl [facility] 94501292293 1000 mg Orally once a day Jun 15, 2015 Active 2 tablets Vitamin D [facility] 52258303246 2000 UNIT Orally Once a day Active 1 tablet Losartan Potassium [facility] 04959333364 100 mg Orally Once a day Active 1 tablet Lorazepam [facility] 43367057150 0.5 MG Orally once a day Mar 25, 2016 Active 1 tablet Co Q 10 ND 15949160693 100 MG Orally Once a day Active 1 capsule with a meal Vital Signs Date/Time: Sep 07, 2017 BMI 39.32 Index Weight 222 lbs Height 63 in Cardiac Monitoring Heart Rate 72 /min Blood Pressure Diastolic 80 mm Hg Blood Pressure Systolic 122 mm Hg Results No Known Results Summary Purpose eClinicalWorks Submission
--- OUTSIDE RECORDS SUMMARY | 2018-12-22 09:09 | XMS REPORT ---
Author Author Amrit Ivory Organization [employer] Address Unknown Phone Unavailable Care Team Providers Care Concrete Buster Operator Name Role Phone Amrit Ivory CP Unavailable [...] Medications Results No Known Results Summary Purpose [employer] Submission
--- OUTSIDE RECORDS SUMMARY | 2018-12-22 09:09 | XMS REPORT ---
Author Author Amrit Ivory Organization [employer] Address Unknown Phone Unavailable Care Team Providers Care Ios Software Engineer Name Role Phone Amrit Ivory CP Unavailable [...] due to excess calories E66.09 Active Medications Medication Code System Code Instructions Start Date End Date Status Dosage Atorvastatin Calcium [facility] [address]-90 20 MG Orally Once a day May 31, 2017 Active 1 tablet Results No Known Results Summary Purpose [employer]ClinicalWorks Submission
--- OUTSIDE RECORDS SUMMARY | 2018-12-22 09:09 | XMS REPORT ---
Author Author Amrit Ivory Organization [employer] Address Unknown Phone Unavailable Care Team Providers Care Pediatric Rn Name Role Phone Amrit Ivory CP Unavailable [...] E66.09 Active Problem Essential hypertension I10 Active Assessment Psychological stress F43.9 Active Assessment Chronic cough R05 Active Assessment Dysfunctional gallbladder K82.8 Active Assessment Mild major depression F32.0 Active Assessment Abdominal wall hernia K43.9 Active Medications Medication Code System Code Instructions Start Date End Date Status Dosage Vitamin D [facility] [address]-54 1000 UNIT Orally Once a day Active 2 tablets Co Q [address] [facility] [address]16 60 MG Orally Once a day Active 1 capsule with a meal Metformin HCl [facility] [address]-43 1000 mg Orally once a day Jun 15, 2015 Active 2 tablets Losartan Potassium [facility] 06507155993 100 mg Orally Once a day Active 1 tablet Lorazepam [facility] [address]-93 0.5 MG Orally twice a day (bid) Mar 25, 2016 Active 1 tablet Lexapro [facility] [address]-60 10 MG Orally Once a day February 03, 2017 Active 1 tablet Vital Signs Date/Time: February 03, 2017 BMI 39.68 Index Weight 224 lbs Height 63 in Cardiac Monitoring Heart Rate 72 /min Blood Pressure Diastolic 76 mm Hg Blood Pressure Systolic 124 mm Hg Results No Known Results Summary Purpose eClinicalWorks Submission
--- OUTSIDE RECORDS SUMMARY | 2018-12-22 09:09 | XMS REPORT ---
Author Author Amrit Ivory Organization [employer] Address Unknown Phone Unavailable Care Team Providers Care Children'S Book Author Name Role Phone Amrit Ivory CP Unavailable Allergies, Adverse Reactions, Alerts Substance Reaction Event Type Sulfur Info Not Available Drug Allergy Lisinopril cough Drug Allergy Problems Problem Type Condition Code Onset Dates Condition Status Problem Fatty liver disease, nonalcoholic K76.0 Active Problem Mild major depression F32.0 Active Problem Family history of heart disease Z82.49 Active Problem Memory problem R41.3 Active Assessment Non morbid obesity due to excess calories E66.09 Active Problem Psychological stress F43.9 Active Assessment Influenza vaccination declined Z28.21 Active Assessment BMI 38.0-38.9,adult Z68.38 Active Problem Non morbid obesity due to excess calories E66.09 Active Problem Type 2 diabetes mellitus with hyperglycemia, without long-term current use of insulin E11.65 Active Problem Hypercholesterolemia E78.00 Active Problem Abdominal wall hernia K43.9 Active Problem Symptomatic varicose veins, bilateral I83.893 Active Assessment Mild major depression F32.0 Active Assessment Psychological stress F43.9 Active Assessment Abdominal wall hernia K43.9 Active Assessment Seborrheic keratosis L82.1 Active Assessment Type 2 diabetes mellitus with hyperglycemia, without long-term current use of insulin E11.65 Active Assessment Essential hypertension I10 Active Assessment Fatty liver disease, nonalcoholic K76.0 Active Assessment Vaccine counseling Z71.89 Active Assessment Hypercholesterolemia E78.00 Active Problem Essential hypertension I10 Active Medications Medication Code System Code Instructions Start Date End Date Status Dosage GlipiZIDE XL [facility] 41442451639 5 MG Orally Once a day Sep 13, 2017 Active 1 tablet Atorvastatin Calcium [facility] 86292135074 20 mg Orally Once a day March 08, 2018 Active 1 tablet Metformin HCl [facility] 18512111437 1000 mg Orally once a day Jun 15, 2015 Active 2 tablets Vitamin D [facility] [address]-01 1000 UNIT Orally Once a day Active 1 tablet Co Q 10 [facility] 23287999127 100 MG Orally Once a day Active 1 capsule with a meal Lorazepam [facility] 98893739937 0.5 MG Orally once a day prn Mar 25, 2016 Active 1 tablet Losartan Potassium [facility] 34735702716 100 mg Orally Once a day Active 1 tablet Vital Signs Date/Time: Aug 27, 2018 BMI 38.97 Index Weight 220 lbs Height 63 in Cardiac Monitoring Heart Rate 88 /min Blood Pressure Diastolic 80 mm Hg Blood Pressure Systolic 122 mm Hg Results No Known Results Summary Purpose eClinicalWorks Submission
--- OUTSIDE RECORDS SUMMARY | 2018-12-22 09:09 | XMS REPORT ---
Author Author Amrit Ivory Organization [employer] Address Unknown Phone Unavailable Care Team Providers Care Primary Health Organisation Manager Name Role Phone Amrit Ivory CP Unavailable Allergies No Known Allergies Problems Problem Type Condition Code Onset Dates Condition Status Problem Hypercholesterolemia E78.00 Active Problem Family history of heart disease Z82.49 Active Problem Type 2 diabetes mellitus with hyperglycemia, without long-term current use of insulin E11.65 Active Assessment Generalized abdominal pain R10.84 Active [...] Instructions Start Date End Date Status Dosage Cipro [facility] [address]-08 500 MG Orally Twice a day March 02, 2017 March 09, 2017 Active 1 tablet Flagyl [facility] [address]-24 500 MG Orally twice a day (bid) March 02, 2017 March 09, 2017 Active 1 tablet Results No Known Results Summary Purpose eClinicalWorks Submission
--- OUTSIDE RECORDS SUMMARY | 2018-12-22 09:09 | XMS REPORT ---
Author Author Amrit Ivory Organization [employer] Address Unknown Phone Unavailable Care Team Providers Care Manager Mobility Name Role Phone Amrit Ivory CP Unavailable [...] Symptomatic varicose veins, bilateral I83.893 Active Assessment Type 2 diabetes mellitus with hyperglycemia, without long-term current use of insulin E11.65 Active Problem Family history of heart disease Z82.49 Active Problem Mild major depression F32.0 Active Medications Medication Code System Code Instructions Start Date End Date Status Dosage GlipiZIDE XL [facility] 70368386995 5 MG Orally Once a day Sep 13, 2017 Active 1 tablet Metformin HCl [facility] 73534173073 1000 mg Orally once a day Jun 15, 2015 Active 2 tablets Results No Known Results Summary Purpose eClinicalWorks Submission
--- OUTSIDE RECORDS SUMMARY | 2018-12-22 09:09 | XMS REPORT ---
Author Author Amrit Ivory Organization [employer] Address Unknown Phone Unavailable Care Team Providers Care Radiator Mechanic Name Role Phone Amrit Ivory CP Unavailable [...] due to excess calories E66.09 Active Assessment Type 2 diabetes mellitus with hyperglycemia, without long-term current use of insulin E11.65 Active Assessment Nasopharyngitis J00 Active Assessment Essential hypertension I10 Active Assessment Cough R05 Active Assessment Hypercholesterolemia E78.00 Active Problem Mild major depression F32.0 Active Medications Medication Code System Code Instructions Start Date End Date Status Dosage Cipro [facility] [address]-07 500 MG Orally Twice a day Active 1 tablet Losartan Potassium [facility] 37344885373 100 mg Orally Once a day Active 1 tablet Vitamin D [facility] [address]-45 1000 UNIT Orally Once a day Active 1 tablet Metformin HCl [facility] [address]-81 1000 mg Orally once a day Jun 15, 2015 Active 2 tablets Lorazepam [facility] [address]-47 0.5 MG Orally once a day Mar 25, 2016 Active 1 tablet Bromfed DM [facility] [address]-23 30-2-10 MG/5ML Orally every 6 hrs prn cough and congestion Mar 30, 2017 Apr 06, 2017 Active 5-10ml Lexapro [facility] [address]-99 10 MG Orally Once a day prn February 03, 2017 Active 1 tablet Co Q 10 [facility] [address]862 60 MG Orally Once a day Active 1 capsule with a meal Vital Signs Date/Time: Mar 30, 2017 BMI 38.61 Index Weight 218 lbs Height 63 in Temperature 98.7 F Cardiac Monitoring Heart Rate 72 /min Blood Pressure Diastolic 74 mm Hg Blood Pressure Systolic 120 mm Hg Results No Known Results Summary Purpose eClinicalWorks Submission
--- OUTSIDE RECORDS SUMMARY | 2018-12-22 09:09 | XMS REPORT ---
Author Author Amrit Ivory Organization [employer] Address Unknown Phone Unavailable Care Team Providers Care Corporate Quality Manager Name Role Phone Amrit Ivory CP [...] Start Date End Date Status Dosage Cipro [facility] [address]-90 500 MG Orally Twice a day March 02, 2017 March 09, 2017 Active 1 tablet Flagyl [facility] [address]-22 500 MG Orally twice a day (bid) March 02, 2017 March 09, 2017 Active 1 tablet Results No Known Results Summary Purpose [employer]ClinicalWorks Submission
--- OUTSIDE RECORDS SUMMARY | 2018-12-22 09:10 | XMS REPORT ---
Author Author Amrit Ivory Organization [employer] Address Unknown Phone Unavailable Care Team Providers Care Physician Assistant Primary Care Name Role Phone Amrit Ivory CP Unavailable Allergies No Known Allergies Problems Problem Type Condition Code Onset Dates Condition Status Problem Fatty liver disease, nonalcoholic K76.0 Active Problem Mild major depression F32.0 Active Problem Family history of heart disease Z82.49 Active Assessment Type 2 diabetes mellitus with hyperglycemia, without long-term current use of insulin E11.65 Active Problem Essential hypertension I10 Active Problem Memory problem R41.3 Active Problem Psychological stress F43.9 Active Problem Non morbid obesity due to excess calories E66.09 Active Problem Type 2 diabetes mellitus with hyperglycemia, without long-term current use of insulin E11.65 Active Problem Hypercholesterolemia E78.00 Active Problem Abdominal wall hernia K43.9 Active Problem Symptomatic varicose veins, bilateral I83.893 Active Medications Medication Code System Code Instructions Start Date End Date Status Dosage GlipiZIDE XL [facility] 45598822453 10 MG Orally Once a day Sep 13, 2017 Active 1 tablet Results No Known Results Summary Purpose eClinicalWorks Submission
--- OUTSIDE RECORDS SUMMARY | 2018-12-22 09:10 | XMS REPORT ---
Author Author Amrit Ivory Organization [employer] Address Unknown Phone Unavailable Care Team Providers Care Regulatory Associate Name Role Phone Amrit Ivory CP Unavailable Encounters Encounter Location Date bp ck , refill norvasc Amrit Ivory MD March 08, 2013 [facility] Amrit Ivory MD March 12, [address] Amrit Ivory MD 2013 Problems Problem Type Condition ICD-9 Code Onset Dates Condition Status Problem Obesity Unspecified 278.00 Active Problem Dyslipidemia 272.0 Active Problem Hypertension 401.1 Active Problem Prediabetes 790.29 Active Social History Social History Element Qualifiers Date Reported Tobacco Use: . Are you a: never smoker March 08, 2013 Marital Status: . March 08, 2013 Do you drink alcohol? . Status: No March 08, 2013 Occupation: . Unemployed March 08, 2013 Vital Signs Date/Time: March 08, 2013 Weight 213 lbs Height 63 inches Cardiac Monitoring Heart Rate 72 Beats per Minute Blood Pressure Diastolic 82 mm Hg Blood Pressure Systolic 130 mm Hg Summary Purpose eClinicalWorks Submission
--- OUTSIDE RECORDS SUMMARY | 2018-12-22 09:10 | XMS REPORT ---
Author Author Amrit Ivory Organization [employer] Address Unknown Phone Unavailable Care Team Providers Care Spouter Name Role Phone Amrit Ivory CP Unavailable Allergies No Known Allergies Problems Problem Type Condition Code Onset Dates Condition Status Problem Fatty liver disease, nonalcoholic K76.0 Active Problem Mild major depression F32.0 Active Problem Family history of heart disease Z82.49 Active Problem Essential hypertension I10 Active Problem Memory problem R41.3 Active Problem Psychological stress F43.9 Active Problem Non morbid obesity due to excess calories E66.09 Active Problem Type 2 diabetes mellitus with hyperglycemia, without long-term current use of insulin E11.65 Active Problem Hypercholesterolemia E78.00 Active Problem Abdominal wall hernia K43.9 Active Problem Symptomatic varicose veins, bilateral I83.893 Active Medications No Known Medications Results No Known Results Summary Purpose [employer]ClinicalWorks Submission
--- OUTSIDE RECORDS SUMMARY | 2018-12-22 09:10 | XMS REPORT ---
Author Author Amrit Ivory Organization [employer] Address Unknown Phone Unavailable Care Team Providers Care Hypoid Gear Tester Name Role Phone Amrit Ivory CP Unavailable Allergies No Known Allergies Problems Problem Type Condition Code Onset Dates Condition Status Problem Hypercholesterolemia E78.00 Active Problem Essential hypertension I10 Active Problem Type 2 diabetes mellitus with hyperglycemia, without long-term current use of insulin E11.65 Active Problem Family history of heart disease Z82.49 Active Problem Mild major depression F32.0 Active Problem Type 2 diabetes mellitus without [...] Medications Results No Known Results Summary Purpose [employer] Submission
--- OUTSIDE RECORDS SUMMARY | 2018-12-22 09:10 | XMS REPORT ---
Author Author Amrit Ivory Organization [employer] Address Unknown Phone Unavailable Care Team Providers Care Congregational Care Pastor Name Role Phone Amrit Ivory CP Unavailable Encounters Encounter Location Date Test results Amrit Ivory MD March 11, 2013 pre op for hysterectomy, bp Amrit Ivory MD Sep 19, 2013 Test results Amrit Ivory MD Sep 20, 2013 Other Amrit Ivory MD Oct 09, 2013 bp ck , refill norvasc Amrit Ivory MD March 08, 2013 [facility] Amrit Ivory MD March 12, [address] Amrit Ivory MD 2013 2 wk bp jose g Amrit Ivory MD Oct 09, 2013 Problems Problem Type Condition ICD-9 Code Onset Dates Condition Status Problem Deficiency D 268.9 Active Problem Family History Diabetes V18.0 Active Problem Diabetes Controlled, Type 2 250.00 Active Problem Obesity Unspecified 278.00 Active Problem Dyslipidemia 272.0 Active Problem Family History of Heart Disease V17.49 Active Problem Hypertension 401.1 Active Social History Social History Element Qualifiers Date Reported Tobacco Use: . Are you a: never smoker Oct 09, 2013 Marital Status: . Oct 09, 2013 Do you drink alcohol? . Status: No Oct 09, 2013 Occupation: . Unemployed Oct 09, 2013 Vital Signs Date/Time: Oct 09, 2013 Weight 218 lbs Height 63 inches Cardiac Monitoring Heart Rate 68 Beats per Minute Blood Pressure Diastolic 88 mm Hg Blood Pressure Systolic 136 mm Hg Summary Purpose eClinicalWorks Submission
--- OUTSIDE RECORDS SUMMARY | 2018-12-22 09:10 | XMS REPORT ---
Author Author Amrit Ivory Organization [employer] Address Unknown Phone Unavailable Care Team Providers Care Hide Measuring Machine Operator Name Role Phone Amrit Ivory CP Unavailable Encounters Encounter Location Date Test results Amrit Ivory MD March 11, 2013 bp ck , refill norvasc Amrit Ivory MD March 08, 2013 [facility] Amrit Ivory MD March 12, [address] Amrit Ivory MD 2013 Problems Problem Type Condition ICD-9 Code Onset Dates Condition Status Problem Obesity Unspecified 278.00 Active Problem Dyslipidemia 272.0 Active Problem Hypertension 401.1 Active Problem Prediabetes 790.29 Active Medications Medication Code System Code Instructions Start Date End Date Status Dosage Norvasc [facility] [address]-09 5 MG Orally Once a day Active 1 tablet Vitamin D [facility] [address]-76 1000 UNIT Orally Once a day March 11, 2013 Apr 10, 2013 Active 2 tablets Pravastatin Sodium [facility] [address]-51 20 mg Orally Once a day March 11, 2013 Active 1 tablet Social History Social History Element Qualifiers Date [...]
--- OUTSIDE RECORDS SUMMARY | 2018-12-22 09:10 | XMS REPORT ---
Author Author Amrit Ivory Organization [employer] Address Unknown Phone Unavailable Care Team Providers Care Lesson Instructor Name Role Phone Amrit Ivory CP Unavailable [...] Instructions Start Date End Date Status Dosage Etodolac [facility] 14922200554 400 MG Orally Twice a day prn back pain January 26, 2016 Active 1 tablet Results No Known Results Summary Purpose eClinicalWorks Submission
--- OUTSIDE RECORDS SUMMARY | 2018-12-22 09:10 | XMS REPORT ---
Author Author Amrit Ivory Organization [employer] Address Unknown Phone Unavailable Care Team Providers Care Dryer And Washer Mechanic Name Role Phone Amrit Ivory CP Unavailable Allergies, Adverse Reactions, Alerts Substance Reaction Event Type Sulfur Info Not Available Drug Allergy Lisinopril cough Drug Allergy Problems Problem Type Condition Code Onset Dates Condition Status Problem Fatty liver disease, nonalcoholic K76.0 Active Problem Mild major depression F32.0 Active Problem Family history of heart disease Z82.49 Active Problem Morbid obesity due to excess calories E66.01 Active Assessment BMI 40.0-44.9, adult Z68.41 Active Problem Psychological stress F43.9 Active Problem Memory problem R41.3 Active Problem Type 2 diabetes mellitus with hyperglycemia, without long-term current use of insulin E11.65 Active Problem Hypercholesterolemia E78.00 Active Problem Abdominal wall hernia K43.9 Active Problem Symptomatic varicose veins, bilateral I83.893 Active Assessment Psychological stress F43.9 Active Assessment Mild major depression F32.0 Active Assessment Morbid obesity due to excess calories E66.01 Active Assessment Symptomatic varicose veins, bilateral I83.893 Active Assessment Hypercholesterolemia E78.00 Active Assessment Type 2 diabetes mellitus with hyperglycemia, without long-term current use of insulin E11.65 Active Assessment Memory problem R41.3 Active Assessment Essential hypertension I10 Active Assessment Fatty liver disease, nonalcoholic K76.0 Active Problem Essential hypertension I10 Active Medications Medication Code System Code Instructions Start Date End Date Status Dosage GlipiZIDE XL [facility] 56288269918 5 MG Orally Once a day Sep 13, 2017 Active 1 tablet Metformin HCl ND 53166594829 1000 mg Orally once a day Jun 15, 2015 Active 2 tablets Co Q 10 [place] 99246080514 100 MG Orally Once a day Active 1 capsule with a meal Losartan Potassium [facility] 02895618954 100 mg Orally Once a day Active [address] [facility] 26143234136 0.5 MG Orally once a day Mar 25, 2016 Active 1 tablet Atorvastatin Calcium ND 24334876652 20 mg Orally Once a day March 08, 2018 Active 1 tablet Vitamin D [facility] [address]-80 1000 UNIT Orally Once a day Active 1 tablet Vital Signs Date/Time: March 08, 2018 BMI 40.03 Index Weight 226 lbs Height 63 in Cardiac Monitoring Heart Rate 74 /min Blood Pressure Diastolic 82 mm Hg Blood Pressure Systolic 122 mm Hg Results No Known Results Summary Purpose eClinicalWorks Submission
--- OUTSIDE RECORDS SUMMARY | 2018-12-22 09:10 | XMS REPORT ---
Author Author Amrit Ivory Organization [employer] Address Unknown Phone Unavailable Care Team Providers Care Power Regulator Name Role Phone Cachorro Amrit CP Unavailable Allergies, Adverse Reactions, Alerts Substance Reaction Event Type Sulfur Info Not Available Drug Allergy Lisinopril cough Drug Allergy Encounters Encounter Location Date Test results Amrit [...] from prev. Dr. Amrit Ivory MD 2013 Test results Amrit Ivory MD January 01, 2014 2 wk bp jose g Amrit Ivory MD Oct 09, 2013 pre op- historectomy Amrit Ivory MD January 01, 2014 Test results Amrit Ivory MD December 03, 2014 bp,chol Amrit Ivory MD Jun 15, 2015 Test results Amrit Ivory MD Sep 04, 2014 3mo bp, chol dm ck Amrit Ivory MD December 02, 2014 Lorazepam Amrit Ivory MD Apr 30, 2014 6mo bp, chol dm ck Amrit Ivory MD Sep 03, 2014 3mo bp, chol, dm ck liver Amrit Ivory MD March 06, 2014 Test results Amrit Ivory MD March 10, 2014 Problems Problem Type Condition ICD-9 Code Onset Dates Condition Status Assessment Diabetes mellitus, controlled E11.9 Active Problem Family history of heart disease Z82.49 Active Assessment Essential hypertension I10 Active Problem Diabetes mellitus, controlled E11.9 Active Problem Hypercholesterolemia E78.0 Active Problem Essential hypertension I10 Active Problem Morbid obesity E66.01 Active Problem Family history of diabetes mellitus Z83.3 Active Problem Fatty liver disease, nonalcoholic K76.0 Active Problem Depression F32.9 Active Assessment H/O noncompliance with medical treatment, presenting hazards to health Z91.19 Active Assessment Morbid obesity E66.01 Active Assessment Fatty liver disease, nonalcoholic K76.0 Active Assessment BMI 40.0-44.9, adult Z68.41 Active Assessment Hypercholesterolemia E78.0 Active Medications Medication Code System Code Instructions Start Date End Date Status Dosage Losartan Potassium [facility] [address]-45 50 mg Orally Once a day Inactive 1 tablet Vitamin D [facility] [address]-42 1000 UNIT Orally Once a day Active 2 tablets Co Q 10 [facility] [address]-10929 60 MG Orally Once a day Active 1 capsule with a meal Losartan Potassium [facility] [address]-93 100 mg Orally Once a day Jun 15, 2015 Active 1 tablet Metformin HCl [facility] [address]-70 1000 mg Orally once a day Jun 15, 2015 Active 1 tablet Aspirin [facility] [address]-42 81 MG Orally Once a day Active 1 tablet Atorvastatin Calcium [facility] [address]-04 10 mg Orally Once a day Jun 15, 2015 Active 1 tablet Ativan [facility] [address]-32 0.5 MG Orally prn Active 1 tablet at bedtime as needed Toprol XL [facility] [address]-15 50 mg Orally Once a day Jun 01, 2015 Active 1 tablet Social History Social History Element Qualifiers Date Reported Tobacco Use: . Are you a: never smoker Jun 15, 2015 Marital Status: . Jun 15, 2015 Do you drink alcohol? . Status: No Jun 15, 2015 Occupation: . Unemployed Jun 15, 2015 Vital Signs Date/Time: Jun 15, 2015 Weight 229 lbs Height 63 in Cardiac Monitoring Heart Rate 72 /min Blood Pressure Diastolic 82 mm Hg Blood Pressure Systolic 140 mm Hg Summary Purpose eClinicalWorks Submission
--- OUTSIDE RECORDS SUMMARY | 2018-12-22 09:10 | XMS REPORT ---
Author Author Amrit Ivory Organization [employer] Address Unknown Phone Unavailable Care Team Providers Care Vending Machine Assembler Name Role Phone Amrit Ivory CP Unavailable Encounters Encounter Location Date Test results Amrit Ivory MD March 11, 2013 pre op for hysterectomy, bp Amrit Ivory MD Sep 19, 2013 Test results Amrit Ivory MD Sep 20, 2013 bp ck , refill norvasc Amrit [...] Disease V17.49 Active Problem Hypertension 401.1 Active Medications Medication Code System Code Instructions Start Date End Date Status Dosage Vitamin D [facility] [address]-50 1000 UNIT Orally Once a day Sep 20, 2013 December 19, 2013 Active 1 tablet Metformin HCl [facility] [address]-11 1000 mg Orally once a day Sep 20, 2013 Active 1 tablet Atorvastatin Calcium [facility] [address]-57 10 mg Orally Once a day Sep 20, 2013 Active 1 tablet Social History Social History Element Qualifiers Date Reported Tobacco Use: . Are you a: never smoker Sep 19, 2013 Marital Status: . Sep 19, 2013 Do you drink alcohol? . Status: No Sep 19, 2013 Occupation: . Unemployed Sep 19, 2013 Vital Signs Date/Time: Sep 19, 2013 Weight 220 lbs Height 63 inches Cardiac Monitoring Heart Rate 80 Beats per Minute Blood Pressure Diastolic 80 mm Hg Blood Pressure Systolic 148 mm Hg Summary Purpose eClinicalWorks Submission
--- OUTSIDE RECORDS SUMMARY | 2018-12-22 09:10 | XMS REPORT ---
Author Author Amrit Ivory Organization [employer] Address Unknown Phone Unavailable Care Team Providers Care Grounds Cleaner Name Role Phone Cachorro Amrit CP Unavailable [...] historectomy Amrit Ivory MD January 01, 2014 Problems Problem Type Condition ICD-9 Code Onset Dates Condition Status Assessment Hypertension 401.1 Active Problem Fatty Liver 571.8 Active Assessment Pre-operative examination V72.84 Active Assessment BMI 39.0-39.9,adult V85.39 Active Assessment Diabetes Controlled, Type 2 250.00 Active Problem Deficiency D 268.9 Active Problem Family History Diabetes V18.0 Active Problem Diabetes Controlled, Type 2 250.00 Active Problem Obesity Unspecified 278.00 Active Problem Dyslipidemia 272.0 Active Problem Family History of Heart Disease V17.49 Active Problem Hypertension 401.1 Active Medications Medication Code System Code Instructions Start Date End Date Status Dosage Ativan [facility] [address]-52 0.5 MG Orally prn Active 1 tablet at bedtime as needed Toprol XL [facility] [address]-54 50 mg Orally Once a day Sep 19, 2013 Active 1 tablet [facility]orvastatin [facility] [address]-45 10 mg Orally Once a day Sep 20, 2013 Active 1 tablet Norvasc [facility] [address]-40 5 MG Orally Once a day Active 1 tablet Vitamin D [facility] [address]-97 1000 UNIT Orally Once a day Active 1 tablet Metformin HCl [facility] [address]-86 1000 mg Orally once a day Sep 20, 2013 Active 1 tablet Co Q 10 [facility] [address]-23348 60 MG Orally Once a day Active 1 capsule with a meal Social History Social History Element Qualifiers Date Reported Tobacco Use: . Are you a: never smoker January 01, 2014 Marital Status: . January 01, 2014 Do you drink alcohol? . Status: No January 01, 2014 Occupation: . Unemployed January 01, 2014 Vital Signs Date/Time: January 01, 2014 Weight 223 lbs Height 63 in Cardiac Monitoring Heart Rate 80 /min Blood Pressure Diastolic 86 mm Hg Blood Pressure Systolic 136 mm Hg Results Chest 2 views (22395)ELECTROCARDIOGRAM, COMPLETE Summary Purpose eClinicalWorks Submission
--- OUTSIDE RECORDS SUMMARY | 2018-12-22 09:10 | XMS REPORT ---
Author Author Amrit Ivory Organization [employer] Address Unknown Phone Unavailable Care Team Providers Care Machine Operator General Name Role Phone Amrit Ivory CP Unavailable Allergies, Adverse Reactions, Alerts Substance Reaction Event Type Sulfur Info Not Available Drug Allergy Lisinopril cough Drug Allergy Encounters Encounter Location Date bp ck , refill norvasc Amrit Ivory MD March 08, 2013 Problems Problem Type Condition ICD-9 Code Onset Dates Condition Status Assessment Abdominal Pain, Lower LT 789.04 Active Assessment Prediabetes 790.29 Active Assessment Deficiency D 268.9 Active Problem Obesity Unspecified 278.00 Active Problem Dyslipidemia 272.0 Active Problem Hypertension 401.1 Active Assessment Obesity Unspecified 278.00 Active Assessment Dyslipidemia 272.0 Active Problem Prediabetes 790.29 Active Assessment Hypertension 401.1 Active Medications Medication Code System Code Instructions Start Date End Date Status Dosage Ativan [facility] [address]-37 0.5 MG Orally Once a day Active 1 tablet at bedtime as needed Norvasc [facility] [address]-07 5 MG Orally Once a day Active 1 tablet Social History Social History Element Qualifiers Date Reported Tobacco Use: . Are you a: never smoker March 08, 2013 Marital Status: . March 08, 2013 Do you drink alcohol? . Status: No March 08, 2013 Occupation: . Unemployed March 08, 2013 Family history Qualifier Description Comment Date Reported Mother alive [place], chronic pancreatitis March 08, 2013 Children son hypertension. daughter-hypothyroid March 08, 2013 Father [place] March 08, 2013 Siblings 1- NIDDM March 08, 2013 Vital Signs Date/Time: March 08, 2013 Weight 213 lbs Height 63 inches Cardiac Monitoring Heart Rate 72 Beats per Minute Blood Pressure Diastolic 82 mm Hg Blood Pressure Systolic 130 mm Hg Results TSH Lipid Panel Hemoglobin A1c Comp. Metabolic Panel (14) Vitamin D, 25-Hydroxy Summary Purpose eClinicalWorks Submission
--- OUTSIDE RECORDS SUMMARY | 2018-12-22 09:10 | XMS REPORT ---
Author Author Amrit Ivory Organization [employer] Address Unknown Phone Unavailable Care Team Providers Care Breaker Off Name Role Phone Cachorro Amrit CP Unavailable [...] Condition Status Assessment Hypertension 401.1 Active Problem Deficiency D 268.9 Active Problem Family History Diabetes V18.0 Active Problem Diabetes Controlled, Type 2 250.00 Active Problem Obesity Unspecified 278.00 Active Problem Dyslipidemia 272.0 Active Problem Family History of Heart Disease V17.49 Active Problem Hypertension 401.1 Active Medications Medication Code System Code Instructions Start Date End Date Status Dosage Metformin HCl [facility] [address]-62 1000 mg Orally once a day Sep 20, 2013 Active 1 tablet Atorvastatin Calcium [facility] [address]-32 10 mg Orally Once a day Sep 20, 2013 Active 1 tablet Co Q 10 [facility] [address]3616 60 MG Orally Once a day Active 1 capsule with a meal Norvasc [facility] [address]-86 5 MG Orally Once a day Active 1 tablet Toprol XL [facility] [address]-50 50 mg Orally Once a day Sep 19, 2013 Active 1 tablet Vitamin D [facility] [address]-46 1000 UNIT Orally Once a day Sep 20, 2013 December 19, 2013 Active 1 tablet Ativan [facility] [address]-35 0.5 MG Orally prn Active 1 tablet at bedtime as needed Social History Social History Element Qualifiers Date [...]
--- OUTSIDE RECORDS SUMMARY | 2018-12-22 09:10 | XMS REPORT ---
Author Author Amrit Ivory Organization [employer] Address Unknown Phone Unavailable Care Team Providers Care Street Railway Line Installer Name Role Phone Amrit Ivory CP Unavailable Allergies No Known Allergies Problems Problem Type Condition Code Onset Dates Condition Status Problem Fatty liver disease, nonalcoholic K76.0 Active Problem Mild major depression F32.0 Active Problem Family history of heart disease Z82.49 Active Problem Essential hypertension I10 Active Problem Morbid obesity due to excess calories E66.01 Active Problem Psychological stress F43.9 Active Problem Memory problem R41.3 Active Problem Type 2 diabetes mellitus with hyperglycemia, without long-term current use of insulin E11.65 Active Problem Hypercholesterolemia E78.00 Active Problem Abdominal wall hernia K43.9 Active Problem Symptomatic varicose veins, bilateral I83.893 Active Medications No Known Medications Results No Known Results Summary Purpose eClinicalWorks Submission
--- OUTSIDE RECORDS SUMMARY | 2018-12-22 09:10 | XMS REPORT ---
Author Author Amrit Ivory Organization [employer] Address Unknown Phone Unavailable Care Team Providers Care Hostler Helper Name Role Phone Cachorro, Amrit CP Unavailable Allergies, Adverse Reactions, Alerts [...] results Amrit Ivory MD January 01, 2014 abd pain (since MONDAY) Amrit Ivory MD November 24, 2015 2 wk bp jose g Amrit Ivory [...] results Amrit Ivory MD March 10, 2014 Test results Amrit Ivory MD Jul 17, 2015 Problems Problem Type Condition ICD-9 Code Onset Dates Condition Status Assessment Suprapubic pain R10.2 Active Problem Family history of heart disease Z82.49 Active Assessment LLQ abdominal pain R10.32 Active Assessment BMI 39.0-39.9,adult Z68.39 Active Problem Diabetes mellitus, controlled E11.9 Active Problem Hypercholesterolemia E78.0 Active Problem Essential hypertension I10 Active Problem Morbid obesity E66.01 Active Problem Family history of diabetes mellitus Z83.3 Active Problem Fatty liver disease, nonalcoholic K76.0 Active Problem Depression F32.9 Active Medications Medication Code System Code Instructions Start Date End Date Status Dosage Ativan [facility] [address]-31 0.5 MG Orally prn Active 1 tablet at bedtime as needed Toprol XL [facility] [address]-24 50 mg Orally Once a day Jun 01, 2015 Active 1 tablet Losartan Potassium [facility] [address]-47 100 mg Orally Once a day Jun 15, 2015 Active 1 tablet Co Q 10 [facility] [address]295 60 MG Orally Once a day Active 1 capsule with a meal Cipro [facility] [address]-77 500 mg Orally Twice a day November 24, 2015 December 04, 2015 Active 1 tablet Aspirin [facility] [address]-38 81 MG Orally Once a day Active 1 tablet Vitamin D [facility] [address]-73 1000 UNIT Orally Once a day Active 2 tablets Metformin HCl [facility] [address]-50 1000 mg Orally once a day Jun 15, 2015 Active 1 tablet Flagyl [facility] [address]-81 500 mg Orally twice a day (bid) November 24, 2015 December 04, 2015 Active 1 tablet Social History Social History Element Qualifiers Date Reported Tobacco Use: . Are you a: never smoker November 24, 2015 Marital Status: . November 24, 2015 Do you drink alcohol? . Status: No November 24, 2015 Occupation: . Unemployed November 24, 2015 Vital Signs Date/Time: November 24, 2015 Weight 224 lbs Height 63 in Cardiac Monitoring Heart Rate 76 /min Blood Pressure Diastolic 80 mm Hg Blood Pressure Systolic 140 mm Hg Summary Purpose eClinicalWorks Submission
--- OUTSIDE RECORDS SUMMARY | 2018-12-22 09:10 | XMS REPORT ---
Author Author Amrit Ivory Organization [employer] Address Unknown Phone Unavailable Care Team Providers Care Staff Pharmacist Name Role Phone Amrit Ivory CP Unavailable Encounters Encounter Location Date Test results Amrit Ivory MD March 11, 2013 pre op for hysterectomy, bp Amrit Ivory MD Sep 19, 2013 Test results Amrit Ivory MD Sep 20, 2013 Other Amrit Ivory MD Oct 09, 2013 bp ck , refill norvasc Amrit Ivory MD March 08, 2013 3mo bp, chol, dm ck liver Amrit Ivory MD March 06, 2014 [facility] Amrit Ivory MD March 12, 2013 Test results Amrit Ivory MD March 10, [address] Amrit Ivory MD 2013 Test results Amrit Ivory MD January 01, 2014 2 wk bp jose g Amrit Ivory MD Oct 09, 2013 pre op- historectomy Amrit Ivory MD January 01, 2014 Problems Problem Type Condition ICD-9 Code Onset Dates Condition Status Problem Fatty Liver 571.8 Active Assessment Vitamin D deficiency 268.9 Active Problem Deficiency D 268.9 Active Problem Family History Diabetes V18.0 Active Problem Diabetes Controlled, Type 2 250.00 Active Problem Obesity Unspecified 278.00 Active Problem Dyslipidemia 272.0 Active Problem Family History of Heart Disease V17.49 Active Problem Hypertension 401.1 Active Medications Medication Code System Code Instructions Start Date End Date Status Dosage Atorvastatin Calcium [facility] [address]-37 20 mg Orally Once a day March 10, 2014 Active 1 tablet Vitamin D [facility] [address]-71 1000 UNIT Orally Once a day Active 2 tablets Social History Social History Element Qualifiers Date Reported Tobacco Use: . Are you a: never smoker March 06, 2014 Marital Status: . March 06, 2014 Do you drink alcohol? . Status: No March 06, 2014 Occupation: . Unemployed March 06, 2014 Summary Purpose eClinicalWorks Submission
--- OUTSIDE RECORDS SUMMARY | 2018-12-22 09:10 | XMS REPORT ---
Author Author Amrit Ivory Organization [employer] Address Unknown Phone Unavailable Care Team Providers Care Hoisting Engineer Name Role Phone Cachorro Amrit CP Unavailable [...] Code Onset Dates Condition Status Assessment Diabetes Controlled, Type 2 250.00 Active Problem Fatty Liver 571.8 Active Assessment Hypertension 401.1 Active Problem Deficiency D 268.9 Active Problem Family History Diabetes V18.0 Active Problem Diabetes Controlled, Type 2 250.00 Active Problem Obesity Unspecified 278.00 Active Problem Dyslipidemia 272.0 Active Problem Family History of Heart Disease V17.49 Active Problem Hypertension 401.1 Active Assessment Vitamin D deficiency 268.9 Active Assessment Obesity Unspecified 278.00 Active Assessment BMI 38.0-38.9,adult V85.38 Active Assessment Fatty Liver 571.8 Active Assessment Foot callus 700 Active Assessment Dyslipidemia 272.0 Active Medications Medication Code System Code Instructions Start Date End Date Status Dosage Norvasc [facility] [address]-57 5 MG Orally Once a day Active 1 tablet Toprol XL [facility] [address]-24 50 mg Orally Once a day Sep 19, 2013 Active 1 tablet Vitamin D [facility] [address]-81 1000 UNIT Orally Once a day Active 1 tablet Aspirin [facility] [address]-44 81 MG Orally Once a day March 06, 2014 Apr 05, 2014 Active 1 tablet Co Q 10 [facility] 19340-04608 60 MG Orally Once a day Active 1 capsule with a meal Ativan [facility] [address]-34 0.5 MG Orally prn Active 1 tablet at bedtime as needed Social History Social History Element Qualifiers Date Reported Tobacco Use: . Are you a: never smoker March 06, 2014 Marital Status: . March 06, 2014 Do you drink alcohol? . Status: No March 06, 2014 Occupation: . Unemployed March 06, 2014 Vital Signs Date/Time: March 06, 2014 Weight 218 lbs Height 63 in Cardiac Monitoring Heart Rate 76 /min Blood Pressure Diastolic 82 mm Hg Blood Pressure Systolic 134 mm Hg Summary Purpose eClinicalWorks Submission
--- OUTSIDE RECORDS SUMMARY | 2018-12-22 09:10 | XMS REPORT ---
Author Author Amrit Ivory Organization [employer] Address Unknown Phone Unavailable Care Team Providers Care Gameroom Technician Name Role Phone Amrit Ivory CP [...]
--- OUTSIDE RECORDS SUMMARY | 2018-12-22 09:10 | XMS REPORT ---
Author Author Amrit Ivory Organization [employer] Address Unknown Phone Unavailable Care Team Providers Care Digital Strategy Manager Name Role Phone Amrit Ivory CP [...] Condition Status Problem Fatty Liver 571.8 Active Problem Deficiency D 268.9 Active Problem [...] 2014 Occupation: . Unemployed January 01, 2014 Summary Purpose eClinicalWorks Submission
--- OUTSIDE RECORDS SUMMARY | 2018-12-22 09:10 | XMS REPORT ---
Author Author Amrit Ivory Organization [employer] Address Unknown Phone Unavailable Care Team Providers Care Testing Tech Name Role Phone Amrit Ivory CP Unavailable Encounters Encounter Location Date bp ck , refill norvasc Amrit Ivory MD March 08, 2013 [facility] Amrit Ivory MD March 12, 2013 Problems Problem Type Condition ICD-9 Code [...]
--- OUTSIDE RECORDS SUMMARY | 2018-12-22 09:10 | XMS REPORT ---
Author Author Amrit Ivory Organization [employer] Address Unknown Phone Unavailable Care Team Providers Care Dining Host Name Role Phone Amrit Ivory CP Unavailable Allergies, Adverse Reactions, Alerts Substance Reaction Event Type Sulfur Info Not Available Drug Allergy Lisinopril cough Drug Allergy Problems Problem Type Condition Code Onset Dates Condition Status Problem Fatty liver disease, nonalcoholic K76.0 Active Problem Mild major depression F32.0 Active Problem Family history of heart disease Z82.49 Active Assessment Periumbilical pain R10.33 Active Assessment Abdominal cramping R10.9 Active Problem Essential hypertension I10 Active Problem [...] Start Date End Date Status Dosage Etodolac [facility] 59280611893 400 MG Orally Twice a day prn back pain January 26, 2016 Active 1 tablet Losartan Potassium [facility] 03150907279 100 mg Orally Once a day Active 1 tablet Metformin HCl [facility] 67301495818 1000 mg Orally once a day Jun 15, 2015 Active 2 tablets Dicyclomine HCl [facility] [address]-08 20 mg Orally three times a day (tid) as needed Active 1 tablet Atorvastatin Calcium [facility] 86503393600 20 mg Orally Once a day March 08, 2018 Active 1 tablet Vitamin D [facility] [address]-67 1000 UNIT Orally Once a day Active 1 tablet Co Q 10 [facility] 34519595858 100 MG Orally Once a day Active 1 capsule with a meal Lorazepam [facility] 50513326310 0.5 MG Orally once a day prn Mar 25, 2016 Active 1 tablet GlipiZIDE XL [facility] 24144139729 10 MG Orally Once a day Sep 13, 2017 Active 1 tablet Vital Signs Date/Time: November 28, 2018 BMI 37.20 Index Weight 210 lbs Height 63 in Cardiac Monitoring Heart Rate 74 /min Blood Pressure Diastolic 80 mm Hg Blood Pressure Systolic 124 mm Hg Results No Known Results Summary Purpose eClinicalWorks Submission
--- OUTSIDE RECORDS SUMMARY | 2018-12-22 09:10 | XMS REPORT ---
[...] 01, 2014 Test results Amrit Ivory MD Sep 04, 2014 Lorazepam Amrit Ivory MD Apr 30, [...] . Are you a: never smoker Sep 03, 2014 Marital Status: . Sep 03, 2014 Do you drink alcohol? . Status: No Sep 03, 2014 Occupation: . Unemployed Sep 03, 2014 Summary Purpose eClinicalWorks Submission
--- OUTSIDE RECORDS SUMMARY | 2018-12-22 09:10 | XMS REPORT ---
Author Author Amrit Ivory Organization [employer] Address Unknown Phone Unavailable Care Team Providers Care Training And Development Assistant Name Role Phone Amrit Ivory CP Unavailable [...] results Amrit Ivory MD January 01, 2014 Clinical Advice During Business Hours Amrit Ivory MD December 04, 2015 abd pain (since MONDAY) Amrit Ivory MD [...] ICD-9 Code Onset Dates Condition Status Problem Family history of heart disease Z82.49 Active Problem Diabetes mellitus, controlled E11.9 Active Problem Hypercholesterolemia E78.0 Active Problem Essential hypertension I10 Active Problem Morbid obesity E66.01 Active Problem Family history of diabetes mellitus Z83.3 Active Problem Fatty liver disease, nonalcoholic K76.0 Active Problem Depression F32.9 Active Social History Social History Element Qualifiers Date Reported Tobacco Use: . Are you a: never smoker November 24, 2015 Marital Status: . November 24, 2015 Do you drink alcohol? . Status: No November 24, 2015 Occupation: . Unemployed November 24, 2015 Summary Purpose eClinicalWorks Submission
--- OUTSIDE RECORDS SUMMARY | 2018-12-22 09:10 | XMS REPORT ---
Author Author Amrit Ivory Organization [employer] Address Unknown Phone Unavailable Care Team Providers Care Manager Media Name Role Phone Amrit Ivory CP Unavailable [...] Ivory MD January 01, 2014 Test results mArit Ivory MD December 03, 2014 bp,chol Amrit [...] 2015 Occupation: . Unemployed Jun 15, 2015 Summary Purpose eClinicalWorks Submission
--- OUTSIDE RECORDS SUMMARY | 2018-12-22 09:10 | XMS REPORT ---
Author Author Amrit Ivory Organization [employer] Address Unknown Phone Unavailable Care Team Providers Care Stiff Leg Operator Name Role Phone Cachorro Amrit CP Unavailable [...] ICD-9 Code Onset Dates Condition Status Assessment Prediabetes 790.29 Active Assessment Obesity Unspecified 278.00 Active Assessment Dyslipidemia 272.0 Active Problem Family History Diabetes V18.0 Active Problem Family History of Heart Disease V17.49 Active Problem Deficiency D 268.9 Active Problem Dyslipidemia 272.0 Active Assessment Hypertension 401.1 Active Problem Hypertension 401.1 Active Problem Obesity Unspecified 278.00 Active Assessment Deficiency D 268.9 Active Assessment Physical, Preoperative Unspecified V72.84 Active Assessment Family History of Heart Disease V17.49 Active Assessment Family History Diabetes V18.0 Active Medications Medication Code System Code Instructions Start Date End Date Status Dosage Ativan [facility] [address]-18 0.5 MG Orally Once a day Active 1 tablet at bedtime as needed Norvasc [facility] [address]-29 5 MG Orally Once a day Active 1 tablet Toprol XL [facility] [address]-84 50 mg Orally Once a day Sep 19, 2013 Active 1 tablet Co Q 10 [facility] [address]325 60 MG Orally Once a day Active 1 capsule with a meal Social History Social History Element Qualifiers Date Reported Tobacco Use: . Are you a: never smoker Sep 19, 2013 Marital Status: . Sep 19, 2013 Do you drink alcohol? . Status: No Sep 19, 2013 Occupation: . Unemployed Sep 19, 2013 Family history Qualifier Description Comment Date Reported Mother alive Mi, chronic pancreatitis Sep 19, 2013 Children son hypertension. daughter-hypothyroid Sep 19, 2013 Father NM Sep 19, 2013 Siblings 1- NIDDM Sep 19, 2013 Vital Signs Date/Time: Sep 19, 2013 Weight 220 lbs Height 63 inches Cardiac Monitoring Heart Rate 80 Beats per Minute Blood Pressure Diastolic 80 mm Hg Blood Pressure Systolic 148 mm Hg Results CBC With Differential/Platelet Prothrombin Time (PT) (13393)ELECTROCARDIOGRAM, COMPLETE TSH Lipid Panel Vitamin D, 25-Hydroxy Thyroxine (T4) Free, Direct, S Urinalysis, Routine PTT, Activated Comp. Metabolic Panel (14) Hemoglobin A1c Summary Purpose eClinicalWorks Submission
--- OUTSIDE RECORDS SUMMARY | 2018-12-22 09:10 | XMS REPORT ---
Author Author Amrit Ivory Organization [employer] Address Unknown Phone Unavailable Care Team Providers Care Assistant Hairstylist Name Role Phone Cachorro Amrit CP Unavailable [...] historectomy Amrit Ivory MD January 01, 2014 Lorazepam Amrit Ivory MD Apr 30, 2014 6mo bp, chol dm ck Amrit Ivory MD Sep 03, 2014 3mo bp, chol, dm ck liver Amrit Ivory MD March 06, 2014 Test results Amrit Ivory MD March 10, 2014 Problems Problem Type Condition ICD-9 Code Onset Dates Condition Status Assessment Noncompliance V15.81 Active Assessment BMI 40.0-44.9, adult V85.41 Active Assessment Diabetes Controlled, Type 2 250.00 Active Assessment Dyslipidemia 272.0 Active Assessment Hypertension 401.1 Active Assessment Family History of Heart Disease V17.49 Active Assessment Deficiency D 268.9 Active Assessment Fatty Liver 571.8 Active Assessment Obesity Unspecified 278.00 Active Social History Social History Element Qualifiers Date Reported Tobacco Use: . Are you a: never smoker Sep 03, 2014 Marital Status: . Sep 03, 2014 Do you drink alcohol? . Status: No Sep 03, 2014 Occupation: . Unemployed Sep 03, 2014 Vital Signs Date/Time: Sep 03, 2014 Weight 226 lbs Height 63 in Cardiac Monitoring Heart Rate 80 /min Blood Pressure Systolic 136 mm Hg Summary Purpose eClinicalWorks Submission
--- OUTSIDE RECORDS SUMMARY | 2018-12-22 09:11 | XMS REPORT | Summary of Care ---
Author Author [facility] Organization [facility] Address Unknown Phone Unavailable Encounter [facility] [place] [id number] Date(s): 03/28/17 - 03/29/17 [facility] [address] [place] [address]- Discharge Diagnosis: Ureterolithiasis Discharge Diagnosis: Frequency-urgency syndrome Discharge Disposition: Home or Self Care Attending Physician: Mike Dawosn MD Vital Signs Most recent to 1 2 oldest [Reference Range]: Temperature Oral 98.3 DegF [96.4-99.1 DegF] (03/28/17 9:21 PM) Blood Pressure 137/77 mmHg 133/68 mmHg [90-140/60-90 mmHg] (03/29/17 1:10 AM) (03/28/17 9:21 PM) Respiratory Rate 20 BRMIN 18 BRMIN [14-20 BRMIN] (03/29/17 1:10 AM) (03/28/17 9:21 PM) Peripheral Pulse 73 bpm 83 bpm Rate [60-100 bpm] (03/29/17 1:10 AM) (03/28/17 9:21 PM) Weight 100 kg (03/28/17 9:21 PM) Problem List Condition Effective Dates Status Health Status Informant Hypertension(Confirm Resolved ed) Allergies, Adverse Reactions, Alerts Substance Reaction Severity Status sulfa drugs Active Medications Cipro 500 mg oral tablet 500 mg=1 tab, PO, BID, # 14 tab, 0 Refill(s) Start Date: 03/29/17 Stop Date: 03/29/17 Status: Completed morphine Sulfate 4 mg, 1 mL, Route: IVP, Drug form: INJ, ONCE, Dosing Weight 100, kg, Priority: S TAT, Start date: 03/28/17 22:02:00 CDT, Stop date: 03/28/17 22:02:00 CDT Notes: (Same as:MORPhine Sulfate) Start Date: 03/28/17 Stop Date: 03/28/17 Status: Completed ondansetron 4 mg, 2 mL, Route: IVP, Drug form: INJ, ONCE, Dosing Weight 100, kg, Priority: S TAT, Start date: 03/28/17 22:02:00 CDT, Stop date: 03/28/17 22:02:00 CDT Notes: (Same as: Ivana) MEDICATION WASTE Product Size: 4 mgProduct Was edmar: ___ mg Start Date: 03/28/17 Stop Date: 03/28/17 Status: Completed Pyridium 100 mg, 0.5 tab, Route: PO, Drug form: TAB, ONCE, Dosing Weight 100, kg, Priorit y: STAT, Start date: 03/28/17 21:30:00 CDT, Stop date: 03/28/17 21:30:00 CDT Notes: Give with meals.(Same as: Pyridium) Start Date: 03/28/17 Stop Date: 03/28/17 Status: Completed Saline Flush 0.9% 10 mL, Route: IVP, Drug Form: INJ, Dosing Weight 100, kg, PRN, PRN Line Flush, S tart date: 03/28/17 21:30:00 CDT, Duration: 30 day, Stop date: 04/27/17 21:29:00 CDT Notes: Same as: BD Posiflush Sterile Start Date: 03/28/17 Stop Date: 03/29/17 Status: Discontinued tramadol 50 mg oral tablet 50 mg, PO, Q4-6H, PRN Pain, X 4 day, # 20 tab, 0 Refill(s) Start Date: 03/29/17 Stop Date: 04/02/17 Status: Ordered Results ELECTROLYTES Most recent to 1 oldest [Reference Range]: Sodium Lvl [135-145 137 mEq/L mEq/L] (03/28/17 9:47 PM) Potassium Lvl 3.9 mEq/L [3.5-5.1 mEq/L] (03/28/17 9:47 PM) Chloride Lvl [95-109 104 mEq/L mEq/L] (03/28/17 9:47 PM) CO2 [24-32 mEq/L] 25 mEq/L (03/28/17 9:47 PM) AGAP [10.0-20.0 11.9 mEq/L mEq/L] (03/28/17 9:47 PM) CHEM PANEL Most recent to 1 oldest [Reference Range]: Creatinine Lvl 1.23 mg/dL [0.50-1.40 mg/dL] (03/28/17 9:47 PM) eGFR 46 mL/min/1.73m2 1 *NA* (03/28/17:47 PM) BUN [7-22 mg/dL] 18 mg/dL (03/28/17 9:47 PM) B/C Ratio [6-25] 15 (03/28/17 9:47 PM) Glucose Lvl [70-99 141 mg/dL mg/dL] *HI* (03/28/17 9:47 PM) Total Protein 8.2 g/dL [6.4-8.4 g/dL] (03/28/17 9:47 PM) Albumin Lvl [3.5-5.0 3.8 g/dL g/dL] (03/28/17 9:47 PM) Globulin [2.7-4.2 4.4 g/dL g/dL] *HI* (03/28/17 9:47 PM) A/G Ratio [0.7-1.6] 0.9 (03/28/17 9:47 PM) Calcium Lvl 9.3 mg/dL [8.5-10.5 mg/dL] (03/28/17 9:47 PM) ALT [0-65 unit/L] 47 unit/L (03/28/17 9:47 PM) AST [0-37 unit/L] 22 unit/L (03/28/17 9:47 PM) Alk Phos [39-136 109 unit/L unit/L] (03/28/17 9:47 PM) Bili Total [0.2-1.3 0.4 mg/dL mg/dL] (03/28/17 9:47 PM) Lipase Lvl [73-393 63 unit/L unit/L] *LOW* (03/28/17 9:47 PM) 1Result Comment: The eGFR is calculated using the [...] from the National Kidney Disease Education Program ( NKDEP) which additionally recommends that when the eGFR is used in patients with extremes of body mass index for purposes of drug dosing, the eGFR should be mul tiplied by the estimated BMI. URINE AND STOOL Most recent to 1 oldest [Reference Range]: UA Turbidity [Clear] Cloudy *ABN* (03/28/17 10:05 PM) UA Color [Yellow] Yellow *NA* (03/28/17 10:05 PM) UA pH [5.0-8.0] 5.5 (03/28/17 10:05 PM) UA Spec Grav >=1.030 [<=1.030] *ABN* (03/28/17 10:05 PM) UA Glucose Negative [Negative] (03/28/17 10:05 PM) UA Blood [Negative] Large *ABN* (03/28/17 10:05 PM) UA Ketones Negative [Negative] *NA* (03/28/17 10:05 PM) UA Protein Trace [Negative] *ABN* (03/28/17 10:05 PM) UA Urobilinogen 0.2 EU/dL [0.1-1.0 EU/dL] (03/28/17 10:05 PM) UA Bili [Negative] Negative *NA* (03/28/17 10:05 PM) UA Leuk Est Trace [Negative] *ABN* (03/28/17 10:05 PM) UA Nitrite Negative [Negative] (03/28/17 10:05 PM) UA WBC [None Seen 0-2 /HPF /HPF] (03/28/17 10:05 PM) UA RBC [0-2 /HPF] >100 /HPF *ABN* (03/28/17 10:05 PM) UA Bacteria [None Few /HPF Seen /HPF] (03/28/17 10:05 PM) UA Sq Epi [Few /LPF] Occasional /LPF (03/28/17 10:05 PM) UA Mucus [None Seen Rare /LPF /LPF] (03/28/17 10:05 PM) HEMATOLOGY Most recent to 1 oldest [Reference Range]: WBC [3.7-10.4 K/CMM] 13.4 K/CMM *HI* (03/28/17 9:47 PM) RBC [4.20-5.40 4.84 M/CMM M/CMM] (03/28/17 9:47 PM) Hgb [12.0-16.0 g/dL] 14.7 g/dL (03/28/17 9:47 PM) Hct [36.0-48.0 %] 45.0 % (03/28/17 9:47 PM) MCV [80.0-98.0 fL] 93.0 fL (03/28/17 9:47 PM) MCH [27.0-31.0 pg] 30.4 pg (03/28/17 9:47 PM) MCHC [32.0-36.0 32.7 g/dL g/dL] (03/28/17 9:47 PM) RDW [11.5-14.5 %] 14.3 % (03/28/17 9:47 PM) Platelet [133-450 235 K/CMM K/CMM] (03/28/17 9:47 PM) MPV [7.4-10.4 fL] 8.7 fL (03/28/17 9:47 PM) Segs [45.0-75.0 %] 82.7 % *HI* (03/28/17 9:47 PM) Lymphocytes 9.9 % [20.0-40.0 %] *LOW* (03/28/17 9:47 PM) Monocytes [2.0-12.0 6.5 % %] (03/28/17 9:47 PM) Eosinophils [0.0-4.0 0.4 % %] (03/28/17 9:47 PM) Basophils [0.0-1.0 0.5 % %] (03/28/17 9:47 PM) Segs-Bands # 11.1 K/CMM [1.5-8.1 K/CMM] *HI* (03/28/17 9:47 PM) Lymphocytes # 1.3 K/CMM [1.0-5.5 K/CMM] (03/28/17 9:47 PM) Monocytes # [0.0-0.8 0.9 K/CMM K/CMM] *HI* (03/28/17 9:47 PM) Eosinophils # 0.1 K/CMM [0.0-0.5 K/CMM] (03/28/17 9:47 PM) Basophils # [0.0-0.2 0.1 K/CMM K/CMM] (03/28/17 9:47 PM) Immunizations No data available for this section Procedures Procedure Date Related Diagnosis Body Site section1 Hysterectomy 1x4 Social History Social History Type Response Smoking Status Never smoker; Ready to change: No; Concerns about tobacco use in household: No; Exposure to Tobacco Smoke None; Cigarette Smoking Last 365 Days No; Reg Smoking Cessation Counseling No Assessment and Plan No data available for this section
--- OUTSIDE RECORDS SUMMARY | 2018-12-22 09:11 | XMS REPORT ---
Author Author Amrit Ivory Organization [employer] Address Unknown Phone Unavailable Care Team Providers Care Soubrette Name Role Phone Cachorro Amrit CP Unavailable Allergies, Adverse Reactions, Alerts Substance Reaction Event Type Sulfur Info Not Available Drug Allergy Lisinopril cough Drug Allergy Encounters Encounter Location Date Test results Amrit Ivory MD January 01, 2014 6mo bp, chol, dm ck Amrit Ivory MD Aug 29, 2016 Clinical Advice During Business Hours Amrit Ivory MD Aug 03, 2016 Test results Amrit Ivory MD December 03, [...] results Amrit Ivory MD Jul 17, 2015 Test results Amrit Ivory MD March 11, 2013 pre op for hysterectomy, bp Amrit Ivory MD Sep 19, 2013 Test results Amrit Ivory MD Sep 20, 2013 Other Amrit Ivory MD Oct 09, 2013 bp ck , refill norvasc Amrit Ivory MD March 08, 2013 [facility] Amrit Ivory MD March 12, [address] Amrit Ivory MD 2013 Clinical Advice During Business Hours Amrit Ivory MD December 04, 2015 abd pain (since MONDAY) Amrit Ivory MD November 24, 2015 2 wk bp jose g Amrit Ivory MD Oct 09, 2013 pre op- historectomy Amrit Ivory MD January 01, 2014 Test results Amrit Ivory MD February 16, 2016 Refill - 90d Losartan Amrit Ivory MD February 22, 2016 back pain Amrit Ivory MD Mar 25, 2016 Test results Amrit Ivory MD Mar 28, 2016 ear ache, feels like somthing in throat Amrit Ivory MD December 18, 2015 Mammogram Letter Amrit Ivory MD January 06, 2016 Needs referral - ENT Amrit Ivory MD January 12, 2016 bp,chol,dm Amrit Ivory MD January 26, 2016 Problems Problem Type Condition ICD-9 Code Onset Dates Condition Status Assessment Diabetes mellitus with hyperglycemia E11.65 Active Problem Family history of heart disease Z82.49 Active Assessment Essential hypertension I10 Active Problem Non morbid obesity due to excess calories E66.09 Active Problem Diabetes mellitus with hyperglycemia E11.65 Active Problem Symptomatic varicose veins, bilateral I83.893 Active Problem Fatty liver disease, nonalcoholic K76.0 Active Problem Depression F32.9 Active Problem Pure hypercholesterolemia E78.00 Active Problem Essential hypertension I10 Active Assessment Non morbid obesity due to excess calories E66.09 Active Assessment Symptomatic varicose veins, bilateral I83.893 Active Assessment Fatty liver disease, nonalcoholic K76.0 Active Assessment BMI 39.0-39.9,adult Z68.39 Active Assessment Hypercholesterolemia E78.0 Active Medications Medication Code System Code Instructions Start Date End Date Status Dosage Co Q 10 [facility] 54389-[address]12 60 MG Orally Once a day Active 1 capsule with a meal Losartan Potassium [facility] 57402889677 100 mg Orally Once a day Active 1 tablet Metformin HCl [facility] [address]-94 1000 mg Orally once a day Jun 15, 2015 Active 2 tablets Lorazepam [facility] [address]-48 0.5 MG Orally prn anxiety Mar 25, 2016 Active 1 tablet Vitamin D [facility] [address]-56 1000 UNIT Orally Once a day Active 2 tablets Aspirin [facility] [address]-12 81 MG Orally Once a day Active 1 tablet Social History Social History Element Qualifiers Date Reported Tobacco Use: . Are you a: never smoker Aug 29, 2016 Marital Status: . Aug 29, 2016 Do you drink alcohol? . Status: No Aug 29, 2016 Occupation: . Unemployed Aug 29, 2016 Vital Signs Date/Time: Aug 29, 2016 Weight 222 lbs Height 63 in Cardiac Monitoring Heart Rate 76 /min Blood Pressure Diastolic 78 mm Hg Blood Pressure Systolic 120 mm Hg Summary Purpose [employer]ClinicalWorks Submission
--- OUTSIDE RECORDS SUMMARY | 2018-12-22 09:11 | XMS REPORT ---
Author Author Amrit Ivory Organization [employer] Address Unknown Phone Unavailable Care Team Providers Care Bean Weigher Name Role Phone Amrit Ivory CP Unavailable Encounters Encounter Location Date Test results Amrit Ivory MD January 01, 2014 Test [...] 16, 2016 Refill - 90d Losartan Amrit Iovry MD February 22, 2016 back pain Amrit [...] ICD-9 Code Onset Dates Condition Status Problem Diabetes mellitus with hyperglycemia E11.65 Active Problem Essential hypertension I10 Active Problem Non morbid obesity due to excess calories E66.09 Active Problem Depression F32.9 Active Problem Family history of heart disease Z82.49 Active Problem Hypercholesterolemia E78.0 Active Problem Fatty liver disease, nonalcoholic K76.0 Active Social History Social History Element Qualifiers Date Reported Tobacco Use: . Are you a: never smoker Mar 25, 2016 Marital Status: . Mar 25, 2016 Do you drink alcohol? . Status: No Mar 25, 2016 Occupation: . Unemployed Mar 25, 2016 Summary Purpose [employer]Works Submission
--- OUTSIDE RECORDS SUMMARY | 2018-12-22 09:11 | XMS REPORT ---
Author Author Amrit Ivory Organization [employer] Address Unknown Phone Unavailable Care Team Providers Care Imaging Scheduler Name Role Phone Cachorro Amrit CP Unavailable [...] ICD-9 Code Onset Dates Condition Status Assessment Muscle spasm M62.838 Active Assessment Acute UTI N39.0 Active Assessment Back pain M54.9 Active Assessment Anxiety F41.9 Active Problem Diabetes mellitus with hyperglycemia E11.65 Active Problem Essential hypertension I10 Active Problem Non morbid obesity due to excess calories E66.09 Active Problem Depression F32.9 Active Problem Family history of heart disease Z82.49 Active Problem Hypercholesterolemia E78.0 Active Problem Fatty liver disease, nonalcoholic K76.0 Active Medications Medication Code System Code Instructions Start Date End Date Status Dosage Cipro [facility] [address]-85 250 MG Orally every 12 hrs Mar 25, 2016 Apr 01, 2016 Active 1 tablet Ibuprofen [facility] [address]-92 800 MG Orally Three times a day for back Mar 25, 2016 Apr 01, 2016 Active 1 tablet Align [facility] 26635-71816 4 mg Orally once a day Active 1 capsule Aspirin [facility] [address]-80 81 MG Orally Once a day Active 1 tablet Losartan Potassium [facility] [address]-04 100 mg Orally Once a day Jun 15, 2015 Active 1 tablet Vitamin D [facility] [address]-62 1000 UNIT Orally Once a day Active 2 tablets Ativan [facility] [address]-11 0.5 MG Orally prn Active 1 tablet at bedtime as needed Dexilant [facility] [address]-04 60 MG Orally Once a day Active 1 capsule Lorazepam [facility] [address]-41 0.5 MG Orally prn anxiety Mar 25, 2016 Active 1 tablet Flexeril [facility] [address]-99 5 MG Orally Three times a day prn muscle spasm Mar 25, 2016 Apr 01, 2016 Active 1 tablet Metformin HCl [facility] [address]-74 1000 mg Orally once a day Jun 15, 2015 Active 2 tablets Co Q 10 [facility] [address]74-[address]16 60 MG Orally Once a day Active 1 capsule with a meal Social History Social History Element Qualifiers Date Reported Tobacco Use: . Are you a: never smoker Mar 25, 2016 Marital Status: . Mar 25, 2016 Do you drink alcohol? . Status: No Mar 25, 2016 Occupation: . Unemployed Mar 25, 2016 Vital Signs Date/Time: Mar 25, 2016 Weight 226 lbs Height 63 in Cardiac Monitoring Heart Rate 80 /min Blood Pressure Systolic 162 mm Hg Immunizations Vaccine Administration Date Toradol/15mg Mar 25, 2016 Summary Purpose eClinicalWorks Submission
--- OUTSIDE RECORDS SUMMARY | 2018-12-22 09:11 | XMS REPORT ---
Author Author Amrit Ivory Organization [employer] Address Unknown Phone Unavailable Care Team Providers Care Gimp Buttonhole Machine Operator Name Role Phone Amrit Ivory [...] ck Amrit Ivory MD December 02, 2014 ear ache, feels like somthing in throat Amrit Ivory MD December 18, 2015 Lorazepam Amrit Ivory MD Apr 30, 2014 Mammogram Letter Amrit Ivory MD January 06, 2016 6mo bp, chol dm ck Amrit Ivory [...] Use: . Are you a: never smoker December 18, 2015 Marital Status: . December 18, 2015 Do you drink alcohol? . Status: No December 18, 2015 Occupation: . Unemployed December 18, 2015 Summary Purpose [employer] Submission
--- OUTSIDE RECORDS SUMMARY | 2018-12-22 09:11 | XMS REPORT ---
Author Author Amrit Ivory Organization [employer] Address Unknown Phone Unavailable Care Team Providers Care Professional Nurse Name Role Phone Amrit Ivory CP Unavailable [...]
--- OUTSIDE RECORDS SUMMARY | 2018-12-22 09:11 | XMS REPORT ---
Author Author Amrit Ivory Organization [employer] Address Unknown Phone Unavailable Care Team Providers Care Insulation Foreman Name Role Phone Amrit Ivory CP Unavailable Allergies No Known Allergies Problems Problem Type Condition Code Onset Dates Condition Status Problem Hypercholesterolemia E78.00 Active Problem Mild major depression F32.0 Active Problem Symptomatic varicose veins, bilateral I83.893 Active Problem Non morbid obesity due to excess calories E66.09 Active Problem Abdominal wall hernia K43.9 Active Problem Family history of heart disease Z82.49 Active Problem Type 2 diabetes mellitus with hyperglycemia, without long-term current use of insulin E11.65 Active Problem Essential hypertension I10 Active Problem Fatty liver disease, nonalcoholic K76.0 Active Medications Medication Code System Code Instructions Start Date End Date Status Dosage Tamiflu [facility] [address]-10 75 MG Orally Twice a day October 31, 2016 Active 1 capsule Results No Known Results Summary Purpose eClinicalWorks Submission
--- OUTSIDE RECORDS SUMMARY | 2018-12-22 09:11 | XMS REPORT ---
Author Author Amrit Ivory Organization [employer] Address Unknown Phone Unavailable Care Team Providers Care Cylinder Sander Operator Name Role Phone Cachorro Amrit CP [...] ache, feels like somthing in throat Amrit Ivoyr MD December 18, 2015 Lorazepam Amrit Ivory MD Apr 30, 2014 6mo bp, chol dm ck Amrit Ivory MD Sep 03, 2014 3mo bp, chol, dm ck liver Amrit Ivory MD March 06, 2014 Test results Amrit Ivory MD March 10, 2014 Test results Amrit Ivory MD Jul 17, 2015 Problems Problem Type Condition ICD-9 Code Onset Dates Condition Status Assessment Glossitis K14.0 Active Problem Family history of heart disease Z82.49 Active Assessment Pharyngitis J02.9 Active Problem Diabetes mellitus, controlled E11.9 Active Problem Hypercholesterolemia E78.0 Active Problem Essential hypertension I10 Active Problem Morbid obesity E66.01 Active Problem Family history of diabetes mellitus Z83.3 Active Problem Fatty liver disease, nonalcoholic K76.0 Active Problem Depression F32.9 Active Medications Medication Code System Code Instructions Start Date End Date Status Dosage Mycostatin Unknown 0 194577 UNIT/ML Mouth/Throat-swish and swallow four times a day (qid) December 18, 2015 December 28, 2015 Active 5 ml Metformin HCl [facility] [address]-07 1000 mg Orally once a day Jun 15, 2015 Active 1 tablet Ativan [facility] [address]-08 0.5 MG Orally prn Active 1 tablet at bedtime as needed Vitamin D [facility] [address]-55 1000 UNIT Orally Once a day Active 2 tablets Aspirin [facility] [address]-76 81 MG Orally Once a day Active 1 tablet Toprol XL [facility] [address]-56 50 mg Orally Once a day Jun 01, 2015 Active 1 tablet Losartan Potassium [facility] [address]-65 100 mg Orally Once a day Jun 15, 2015 Active 1 tablet Co Q 10 [facility] 52758-07189 60 MG Orally Once a day Active 1 capsule with a meal Social History Social History Element Qualifiers Date Reported Tobacco Use: . Are you a: never smoker December 18, 2015 Marital Status: . December 18, 2015 Do you drink alcohol? . Status: No December 18, 2015 Occupation: . Unemployed December 18, 2015 Vital Signs Date/Time: December 18, 2015 Weight 225 lbs Height 63 in Temperature 97.1 F Cardiac Monitoring Heart Rate 72 /min Blood Pressure Systolic 144 mm Hg Summary Purpose eClinicalWorks Submission
--- OUTSIDE RECORDS SUMMARY | 2018-12-22 09:11 | XMS REPORT ---
Author Author Amrit Ivory Organization [employer] Address Unknown Phone Unavailable Care Team Providers Care Room Manager Name Role Phone Cachorro, Amrit CP Unavailable Allergies, Adverse Reactions, Alerts Substance Reaction Event Type Sulfur Info Not Available Drug Allergy Lisinopril cough Drug Allergy Encounters Encounter Location Date Test results Amrit Ivory MD January 01, 2014 Test results Amrit Ivory MD Sep 01, 2016 6mo bp, chol, dm ck Amrit Ivory MD Aug 29, 2016 Clinical Advice During Business Hours Amrit Ivory MD Aug 03, 2016 Test results Amrit Ivory MD December 03, 2014 bp,chol Amrit Ivory MD Jun 15, 2015 Test results Amrit Ivory MD Sep 02, 2016 Test results mArit Ivory MD Sep 04, 2014 diverticulitis Amrit Ivory MD Sep 09, 2016 3mo bp, chol dm ck Amrit Ivory [...] ICD-9 Code Onset Dates Condition Status Assessment Midepigastric pain R10.13 Active Problem Family history of heart disease Z82.49 Active Assessment RUQ pain R10.11 Active Assessment BMI 39.0-39.9,adult Z68.39 Active Assessment Non morbid obesity due to excess calories E66.09 Active Problem Non morbid obesity due to excess calories E66.09 Active Problem Diabetes mellitus with hyperglycemia E11.65 Active Problem Symptomatic varicose veins, bilateral I83.893 Active Problem Fatty liver disease, nonalcoholic K76.0 Active Problem Depression F32.9 Active Problem Pure hypercholesterolemia E78.00 Active Problem Essential hypertension I10 Active Medications Medication Code System Code Instructions Start Date End Date Status Dosage Aspirin [facility] [address]-10 81 MG Orally Once a day Active 1 tablet Lorazepam [facility] [address]-37 0.5 MG Orally prn anxiety Mar 25, 2016 Active 1 tablet Metformin HCl [facility] [address]-68 1000 mg Orally once a day Jun 15, 2015 Active 2 tablets Losartan Potassium [facility] 94716790726 100 mg Orally Once a day Active 1 tablet Vitamin D [facility] [address]-98 1000 UNIT Orally Once a day Active 2 tablets Co Q 10 [facility] 04802-21337 60 MG Orally Once a day Active 1 capsule with a meal Social History Social History Element Qualifiers Date Reported Tobacco Use: . Are you a: never smoker Sep 09, 2016 Marital Status: . Sep 09, 2016 Do you drink alcohol? . Status: No Sep 09, 2016 Occupation: . Unemployed Sep 09, 2016 Vital Signs Date/Time: Sep 09, 2016 Weight 222 lbs Height 63 in Cardiac Monitoring Heart Rate 68 /min Blood Pressure Systolic 122 mm Hg Summary Purpose eClinicalWorks Submission
--- OUTSIDE RECORDS SUMMARY | 2018-12-22 09:11 | XMS REPORT ---
Author Author Amrit Ivory Organization [employer] Address Unknown Phone Unavailable Care Team Providers Care Rag Cutting Machine Operator Name Role Phone Cachorro Amrit CP [...] 03, 2016 Test results Amrit Ivory MD Sep 10, 2016 Test results Amrit Ivory MD December 03, 2014 Test results Amrit Ivory MD Sep 10, 2016 bp,chol Amrit Ivory MD Jun 15, 2015 Test results Amrit Ivory MD Sep 02, 2016 Test results Amrit Ivory MD Sep 04, 2014 diverticulitis Amrit Ivory MD Sep 09, 2016 3mo bp, chol dm ck Amrit Ivory MD December 02, 2014 Lorazepam Amrit Ivory MD Apr 30, 2014 6mo bp, chol dm ck Amrit Ivory MD Sep 03, 2014 Other - PA for HIDA Scan Amrit Ivory MD October 14, 2016 3mo bp, chol, dm ck liver Amrit Ivory MD March 06, 2014 Galbladder giving her spasm Amrit Ivory MD October 14, 2016 Test results Amrit Ivory MD March 10, 2014 Test results Amrit Ivory MD Jul 17, 2015 Test results Armit Ivory MD March 11, 2013 pre op [...] ICD-9 Code Onset Dates Condition Status Assessment RUQ abdominal pain R10.11 Active Problem Hypercholesterolemia E78.00 Active Problem Mild major [...] Problem Fatty liver disease, nonalcoholic K76.0 Active Assessment BMI 39.0-39.9,adult Z68.39 Active Assessment Non morbid obesity due to excess calories E66.09 Active Assessment Abdominal wall hernia K43.9 Active Medications Medication Code System Code Instructions Start Date End Date Status Dosage Losartan Potassium [facility] 31856951947 100 mg Orally Once a day Active 1 tablet Aspirin [facility] [address]-42 81 MG Orally Once a day Active 1 tablet Vitamin D [facility] [address]-03 1000 UNIT Orally Once a day Active 2 tablets Co Q 10 [facility] 17936-56430 60 MG Orally Once a day Active 1 capsule with a meal Metformin HCl [facility] [address]-47 1000 mg Orally once a day Jun 15, 2015 Active 2 tablets Lorazepam [facility] [address]-26 0.5 MG Orally prn anxiety Mar 25, 2016 Active 1 tablet Social History Social History Element Qualifiers Date Reported Tobacco Use: . Are you a: never smoker October 14, 2016 Marital Status: . October 14, 2016 Do you drink alcohol? . Status: No October 14, 2016 Occupation: . Unemployed October 14, 2016 Vital Signs Date/Time: October 14, 2016 Weight 221 lbs Height 63 in Cardiac Monitoring Heart Rate 72 /min Blood Pressure Diastolic 82 mm Hg Blood Pressure Systolic 134 mm Hg Summary Purpose eClinicalWorks Submission
--- OUTSIDE RECORDS SUMMARY | 2018-12-22 09:11 | XMS REPORT ---
Author Author Amrit Ivory Organization [employer] Address Unknown Phone Unavailable Care Team Providers Care Process Development Engineer Name Role Phone Amrit Ivory CP [...] ck Amrit Ivory MD December 02, 2014 Test results Amrit Ivory MD October 18, 2016 Lorazepam Amrit Ivory MD Apr 30, 2014 [...] ICD-9 Code Onset Dates Condition Status Problem Hypercholesterolemia [...] 2016 Occupation: . Unemployed October 14, 2016 Summary Purpose eClinicalWorks Submission
--- OUTSIDE RECORDS SUMMARY | 2018-12-22 09:11 | XMS REPORT | Summary of Care ---
Author Author [facility] Organization [facility] Address Unknown Phone Unavailable Encounter HQ [email or web address](FIN) [id number] Date(s): 12/06/18 - 12/06/18 [facility] [address] [place] [address]- Discharge Disposition: Home or Self Care Attending Physician: Amrit Ivory MD Admitting Physician: Amrit Ivory MD Vital Signs No data available for this section Problem List Condition Effective Dates Status Health Status Informant Diabetes(Confirmed) Resolved Hypertension(Confirm Resolved ed) IBS (irritable bowel Resolved syndrome)(Confirmed) Morbid Active obesity(Confirmed) Allergies, Adverse Reactions, Alerts Substance Reaction Severity Status sulfa drugs Active Medications No data available for this section Results No data available for this section Immunizations No data available for this section Procedures Procedure Date Related Diagnosis Body Site Status section1 Completed Hysterectomy Completed 1x4 Social History Social History Type Response Substance Abuse Previous Treatment: None. IV drug use: No. Drug use interferes with work/home: No. Ready to change: No. Household substance abuse concerns: No. Cessation Education Provided: No. Alcohol Previous treatment: None. Alcohol use interferes with work or home: No. Drinks more than intended: No. Others hurt by drinking: No. Ready to change: No. Household alcohol concerns: No. Smoking Status Never smoker; Concerns about tobacco use in household: No; Exposure to Tobacco Smoke None; Cigarette Smoking Last 365 Days No; Reg Smoking Cessation Counseling No entered on: 11/23/18 Assessment and Plan No data available for this section
--- OUTSIDE RECORDS SUMMARY | 2018-12-22 09:11 | XMS REPORT ---
Author Author Amrit Ivory Organization [employer] Address Unknown Phone Unavailable Care Team Providers Care Supervisor [place] Name Role Phone Amrit Ivory CP Unavailable [...] E78.00 Active Problem Essential hypertension I10 Active Social History Social History Element Qualifiers Date Reported Tobacco Use: . Are you a: never smoker Sep 09, 2016 Marital Status: . Sep 09, 2016 Do you drink alcohol? . Status: No Sep 09, 2016 Occupation: . Unemployed Sep 09, 2016 Summary Purpose eClinicalWorks Submission
--- OUTSIDE RECORDS SUMMARY | 2018-12-22 09:11 | XMS REPORT ---
Author Author Amrit Ivory Organization [employer] Address Unknown Phone Unavailable Care Team Providers Care Submarine Element Coordinator Name Role Phone Amrit Ivory CP Unavailable [...] Oct 09, 2013 pre op- historectomy Amrit Ivoyr MD January 01, 2014 Test results Amrit Ivory MD February 16, 2016 ear ache, feels like somthing in [...] Date End Date Status Dosage Met[facility] [address]-79 1000 mg Orally once a day Jun 15, 2015 Active 2 tablets Atorvastatin Cal[facility] [address]-98 10 mg Orally Once a day February 17, 2016 Active 1 tablet Social History Social History Element Qualifiers Date Reported Tobacco Use: . Are you a: never smoker January 26, 2016 Marital Status: . January 26, 2016 Do you drink alcohol? . Status: No January 26, 2016 Occupation: . Unemployed January 26, 2016 Summary Purpose eClinicalWorks Submission
--- OUTSIDE RECORDS SUMMARY | 2018-12-22 09:11 | XMS REPORT ---
Author Author Amrit Ivory Organization [employer] Address Unknown Phone Unavailable Care Team Providers Care Milled Rubber Tender Name Role Phone Amrit Ivory CP Unavailable [...] 2014 3mo bp, chol, dm ck liver Amirt Ivory MD March 06, 2014 Test results [...] MD February 22, 2016 back pain Amrit Ivoyr MD Mar 25, 2016 Test results Amrit [...] 2016 Occupation: . Unemployed Aug 29, 2016 Summary Purpose eClinicalWorks Submission
--- OUTSIDE RECORDS SUMMARY | 2018-12-22 09:11 | XMS REPORT | Summary of Care ---
Author Author [facility] Organization [facility] Address Unknown Phone Unavailable Encounter HQ Encntr_alias(FIN) [id number] Date(s): 03/01/17 - 03/01/17 [facility] [address] [place] [address]- Discharge Disposition: Home or Self Care Attending Physician: Amrit Ivory MD Admitting Physician: Amrit Ivory MD Referring Physician: Amrit Ivory MD Vital Signs No data available for this section Problem List No data available for this section Allergies, Adverse Reactions, Alerts Substance Reaction Severity Status sulfa drugs Active Medications No data available for this section Results No data available for this section Immunizations No data available for this section Procedures No data available for this section Social History No data available for this section Assessment and Plan No data available for this section
--- OUTSIDE RECORDS SUMMARY | 2018-12-22 09:11 | XMS REPORT ---
Author Author Amrit Ivory Organization [employer] Address Unknown Phone Unavailable Care Team Providers Care Automatic Vulcanizing Operator Name Role Phone Cachorro Amrit CP [...] historectomy Amrit Ivory MD January 01, 2014 ear ache, feels like somthing in throat Amrit Ivory MD December 18, 2015 Mammogram Letter Amrit Ivory MD January 06, 2016 Needs referral - ENT Amrit Ivory MD January 12, 2016 bp,chol,dm Amrit Ivory MD January 26, 2016 Problems Problem Type Condition ICD-9 Code Onset Dates Condition Status Assessment Hypercholesterolemia E78.0 Active Assessment Essential hypertension I10 Active Assessment Diabetes mellitus, controlled E11.9 Active Problem Essential hypertension I10 Active Problem Diabetes mellitus, controlled E11.9 Active Problem Non morbid obesity due to excess calories E66.09 Active Problem Depression F32.9 Active Problem Family history of heart disease Z82.49 Active Problem Hypercholesterolemia E78.0 Active Problem Fatty liver disease, nonalcoholic K76.0 Active Assessment BMI 39.0-39.9,adult Z68.39 Active Assessment Non morbid obesity due to excess calories E66.09 Active Assessment Fatty liver disease, nonalcoholic K76.0 Active Medications Medication Code System Code Instructions Start Date End Date Status Dosage Metformin HCl [facility] [address]-01 1000 mg Orally once a day Jun 15, 2015 Active 1 tablet Losartan Potassium [facility] [address]-51 100 mg Orally Once a day Jun 15, 2015 Active 1 tablet Co Q 10 [facility] 09190-76559 60 MG Orally Once a day Active 1 capsule with a meal Etodolac [facility] [address]-70 400 MG Orally Twice a day prn back pain January 26, 2016 February 05, 2016 Active 1 tablet Vitamin D [facility] [address]-62 1000 UNIT Orally Once a day Active 2 tablets Dexilant [facility] [address]-53 60 MG Orally Once a day Active 1 capsule Align [facility] 68031-61000 4 mg Orally once a day Active 1 capsule Ativan [facility] [address]-32 0.5 MG Orally prn Active 1 tablet at bedtime as needed Aspirin [facility] [address]-82 81 MG Orally Once a day Active 1 tablet Social History Social History Element Qualifiers Date Reported Tobacco Use: . Are you a: never smoker January 26, 2016 Marital Status: . January 26, 2016 Do you drink alcohol? . Status: No January 26, 2016 Occupation: . Unemployed January 26, 2016 Vital Signs Date/Time: January 26, 2016 Weight 224 lbs Height 63 in Cardiac Monitoring Heart Rate 84 /min Blood Pressure Systolic 128 mm Hg Summary Purpose [employer] Submission
--- OUTSIDE RECORDS SUMMARY | 2018-12-22 09:11 | XMS REPORT ---
Author Author Amrit Ivory Organization [employer] Address Unknown Phone Unavailable Care Team Providers Care Salesperson Hearing Aids Name Role Phone Amrit Ivory CP Unavailable [...]
--- OUTSIDE RECORDS SUMMARY | 2018-12-22 09:11 | XMS REPORT ---
Author Author Amrit Ivory Organization [employer] Address Unknown Phone Unavailable Care Team Providers Care Bicycle Rental Clerk Name Role Phone Amrit Ivory CP Unavailable [...] ck Amrit Ivory MD Sep 03, 2014 Needs referral - ENT Amrit Ivory MD January 12, 2016 3mo bp, chol, dm ck liver Amrit Ivory MD March 06, 2014 Test results Amrit Ivory MD March 10, 2014 Test results Amrit Ivory MD Jul 17, 2015 Problems Problem Type Condition ICD-9 Code Onset Dates Condition Status Problem Family history of heart disease Z82.49 Active Assessment Glossitis K14.0 Active Problem Diabetes mellitus, controlled E11.9 Active [...]
--- OUTSIDE RECORDS SUMMARY | 2018-12-22 09:11 | XMS REPORT ---
Author Author Amrit Ivory Organization [employer] Address Unknown Phone Unavailable Care Team Providers Care Hang Gliding Instructor Name Role Phone Amrit Ivory CP [...] Instructions Start Date End Date Status Dosage Metronidazole MED[facility] [address]-48 500 MG Orally Twice a day Sep 10, 2016 Sep 17, 2016 Active 1 tablet Cipro [facility] [address]-54 500 MG Orally Twice a day Sep 10, 2016 Sep 17, 2016 Active 1 tablet Social History Social History Element Qualifiers Date Reported Tobacco Use: . Are you a: never smoker Sep 09, 2016 Marital Status: . Sep 09, 2016 Do you drink alcohol? . Status: No Sep 09, 2016 Occupation: . Unemployed Sep 09, 2016 Summary Purpose [employer] Submission
--- OUTSIDE RECORDS SUMMARY | 2018-12-22 09:11 | XMS REPORT ---
Author Author Amrit Ivory Organization [employer] Address Unknown Phone Unavailable Care Team Providers Care Internal Controls Analyst Name Role Phone Amrit Ivory CP Unavailable [...]
--- OUTSIDE RECORDS SUMMARY | 2018-12-22 09:11 | XMS REPORT | Summary of Care ---
Author Author [facility] Organization [facility] Address Unknown Phone Unavailable Encounter HQ Christine_sigifredo(FIN) [id number] Date(s): 12/06/18 - 12/06/18 [facility] [address] [place] [address]- Discharge Disposition: Home or Self Care Attending [...]
--- OUTSIDE RECORDS SUMMARY | 2018-12-22 09:11 | XMS REPORT ---
Author Author Amrit Ivory Organization [employer] Address Unknown Phone Unavailable Care Team Providers Care Crew Foreman Name Role Phone Amrit Ivory CP [...] Losartan Amrit Ivory MD February 22, 2016 ear ache, feels like somthing in throat Amrit Ivory MD December 18, 2015 Mammogram Letter Amrit Ivory MD January 06, 2016 Needs referral - ENT Amrit Ivory MD January 12, 2016 bp,chol,dm Amrit Ivory MD January 26, 2016 Problems Problem Type Condition ICD-9 Code Onset Dates Condition Status Assessment Essential hypertension I10 Active Problem Diabetes mellitus with hyperglycemia E11.65 Active Problem Essential hypertension I10 Active Problem Non morbid obesity due to excess calories E66.09 Active Problem Depression F32.9 Active Problem Family history of heart disease Z82.49 Active Problem Hypercholesterolemia E78.0 Active Problem Fatty liver disease, nonalcoholic K76.0 Active Medications Medication Code System Code Instructions Start Date End Date Status Dosage Losartan Potassium [facility] [address]-06 100 mg Orally Once a day Jun 15, 2015 Active 1 tablet Social History Social History Element Qualifiers Date Reported Tobacco Use: . Are you a: never smoker January 26, 2016 Marital Status: . January 26, 2016 Do you drink alcohol? . Status: No January 26, 2016 Occupation: . Unemployed January 26, 2016 Summary Purpose [employer] Submission
--- OUTSIDE RECORDS SUMMARY | 2018-12-22 09:12 | XMS REPORT | Summary of Care ---
Author Organization Unknown Address Unknown Phone Unavailable Encounter [facility] Encntr_sigifredo([place]) [id number] Date(s): 01/01/14 - 01/01/[address] Discharge Disposition: Home Physician Attending: Amrit Ivory MD Reason for Visit V72.84 PRE-OPERATIVE EXAM 401.1 HYPERTENSION Problem List No data available for this section Allergies, Adverse Reactions, Alerts Substance Reaction Severity Status sulfa drugs Active Medications No data available for this section Medications Administered During Your Visit No data available for this section Immunizations No data available for this section
--- OUTSIDE RECORDS SUMMARY | 2018-12-22 09:12 | XMS REPORT | Summary of Care ---
Author Author [facility] Organization [facility] Address Unknown Phone Unavailable Encounter SHAYNE Hahn([place]) [id number] Date(s): 03/19/15 - 03/19/15 [facility] [address] [place] [address]- Discharge Disposition: Home Attending Physician: Slim Leonard MD Referring Physician: Slim Leonard MD Vital Signs No data available for this section Problem List No data available for this section Allergies, Adverse Reactions, Alerts Substance Reaction Severity Status sulfa drugs Active Medications Omnipaque 300 100 mL, Route: IV, Drug Form: FIGUEROA MCALLISTER, Start date: 03/19/15 11:00:00, Durat ion: 1 day, Stop date: 03/20/15 10:59:00 Notes: (Same as:Omnipaque 300). Start Date: 03/19/15 Stop Date: 03/19/15 Status: Completed Results CHEM PANEL Most recent to 1 oldest [Reference Range]: eGFR 79 mL/min/1.73m2 1 *NA* (03/19/15 10:30 AM) POC Creatinine 0.8 mg/dL [0.5-1.4 mg/dL] (03/19/15 10:30 AM) 1Result Comment: The eGFR is calculated using [...] be mul tiplied by the estimated BMI. Immunizations No data available for this section Procedures No data available for this section Social History No data available for this section Assessment and Plan No data available for this section
--- OUTSIDE RECORDS SUMMARY | 2018-12-22 09:12 | XMS REPORT | Summary of Care ---
Author Author [facility] Organization [facility] Address Unknown Phone Unavailable Encounter [facility] Encntr_sigifredo(FIN) [id number] Date(s): 05/09/17 - 05/09/17 [facility] [address] [place] [address]- Discharge Disposition: Home or Self Care Attending [...]
--- OUTSIDE RECORDS SUMMARY | 2018-12-22 09:12 | XMS REPORT | Summary of Care ---
Author Author [facility] Organization [facility] Address Unknown Phone Unavailable Encounter HQ Encntr_alibuck(FIN) [id number] Date(s): 06/22/17 - 06/22/17 [facility] [address] [place] [address]- [phone] Discharge Disposition: Home or Self Care Attending Physician: Amrit Ivory MD Referring Physician: Amrit [...]
--- OUTSIDE RECORDS SUMMARY | 2018-12-22 09:12 | XMS REPORT | Summary of Care ---
Author Author [facility] Organization [facility] Address Unknown Phone Unavailable Encounter HQ Encntr_alias(FIN) [id number] Date(s): 09/10/16 - 09/10/16 [facility] [address] [place] [address]- Discharge Disposition: Home or Self Care Attending [...]
--- OUTSIDE RECORDS SUMMARY | 2018-12-22 09:12 | XMS REPORT | Summary of Care ---
Author Author [facility] Organization [facility] Address Unknown Phone Unavailable Encounter HQ [place](FIN) [id number] Date(s): 11/23/18 - 11/25/18 [facility] [address] [place] [address]- Discharge Disposition: Home or Self Care Attending Physician: Rian Marie DO Admitting Physician: Rian Marie DO Vital Signs 1 2 3 Most recent to oldest [Reference Range]: 162.56 cm (11/23/18 4:35 PM) Height 98.0 DegF (11/25/18 11:51 AM) 97.8 DegF (11/25/18 7:04 AM) 97.9 DegF (11/25/18 3:08 AM) Temperature Oral [96.4-99.1 DegF] 136/79 mmHg (11/25/18 11:51 AM) 148/79 mmHg *HI* (11/25/18 7:04 AM) 137/80 mmHg (11/25/18 3:08 AM) Blood Pressure [90-140/60-90 mmHg] 18 BRMIN (11/25/18 11:51 AM) 18 BRMIN (11/25/18 7:04 AM) 18 BRMIN (11/25/18 3:08 AM) Respiratory Rate [14-20 BRMIN] 74 bpm (11/25/18 11:51 AM) 64 bpm (11/25/18 7:04 AM) 64 bpm (11/25/18 3:08 AM) Peripheral Pulse Rate [60-100 bpm] 76.364 kg (11/23/18 4:35 PM) Weight 28.9 m2 (11/23/18 4:35 PM) Body Mass Index Problem List Condition Effective Dates Status Health Status Informant Diabetes(Confirmed) Resolved Hypertension(Confirm Resolved ed) IBS (irritable bowel Resolved syndrome)(Confirmed) Morbid Active obesity(Confirmed) Allergies, Adverse Reactions, Alerts Substance Reaction Severity Status sulfa drugs Active Medications acetaminophen 650 mg, 2 tab, Route: PO, Drug form: TAB, Q4H, Dosing Weight 76.364, kg, PRN Martin n 1-3/Temp > 100.4 F, Start date: 11/23/18 21:54:00 CDT, Duration: 30 day, Stop date: 12/23/18 21:53:00 CDT Notes: Do not exceed 4 gm/day. (Same as: Tylenol) Start Date: 11/23/18 Stop Date: 11/25/18 Status: Discontinued Ativan 0.5 mg, 0.25 mL, Route: IVP, Drug form: INJ, ONCE, Dosing Weight 76.364, kg, PRN Anxiety, Start date: 11/24/18 11:15:00 CDT Notes: (Same as: Ativan) Start Date: 11/24/18 Stop Date: 11/24/18 Status: Completed calcium gluconate + Sodium Chloride 0.9% IV 100 mL 3 gm, 30 mL, Route: IVPB, PRN, Dosing Weight 76.364, kg, PRN Abnormal Lab Result , For NON-ICU Patients Only., Start date: 11/23/18 21:53:00 CDT, Duration: 30 da y, Stop date: 12/23/18 21:52:00 CDT Notes: WASTE: F/P - Sink; E - Municipal Trash Bin Start Date: 11/23/18 Stop Date: 11/25/18 Status: Discontinued calcium gluconate + Sodium Chloride 0.9% IV 100 mL 2 gm, 20 mL, Route: IVPB, PRN, Dosing Weight 76.364, kg, PRN Abnormal Lab Result , For NON-ICU Patients Only., Start date: 11/23/18 21:53:00 CDT, Duration: 30 da y, Stop date: 12/23/18 21:52:00 CDT Notes: WASTE: F/P - Sink; E - Municipal Trash Bin Start Date: 11/23/18 Stop Date: 11/25/18 Status: Discontinued Chloraseptic 1.4% spray 1 spray, Route: TOP, BID, Drug form: SPRY, PRN Sore Throat, Start date: 11/24/18 15:23:00 CDT, Duration: 5 day, Stop date: 11/29/18 15:22:00 CDT Notes: Chloraseptic [place](Same as: Chloraseptic, Sore Throat [place])WASTE: F/P - Black; E - Municipal Trash Bin Start Date: 11/24/18 Stop Date: 11/25/18 Status: Discontinued D5LR 1,000 mL 1,000 mL, Rate: 75 ml/hr, Infuse over: 13.3 hr, Route: IV, Dosing Weight 76.364 kg, Total Volume: 1,000, Start date: 11/24/18 9:33:00 CDT, Duration: 30 day, Sto p date: 12/24/18 9:32:00 CDT, 1.88, m2 Start Date: 11/24/18 Stop Date: 11/25/18 Status: Discontinued Dextrose 50% Syringe 12.5 gm, 25 mL, Route: IVP, Drug Form: INJ, Dosing Weight 76.364, kg, PRN, PRN B lood Glucose Results, Start date: 11/23/18 21:54:00 CDT, Duration: 30 day, Stop date: 12/23/18 21:53:00 CDT Start Date: 11/23/18 Stop Date: 11/25/18 Status: Discontinued Dextrose 50% Syringe 25 gm, 50 mL, Route: IVP, Drug Form: INJ, Dosing Weight 76.364, kg, PRN, PRN Blo od Glucose Results, Start date: 11/23/18 21:54:00 CDT, Duration: 30 day, Stop da te: 12/23/18 21:53:00 CDT Start Date: 11/23/18 Stop Date: 11/25/18 Status: Discontinued Dextrose 50% Syringe 25 gm, 50 mL, Route: IVP, Drug Form: INJ, Dosing Weight 76.364, kg, PRN, PRN Blo od Glucose Results, Start date: 11/24/18 9:38:00 CDT, Duration: 30 day, Stop sae e: 12/24/18 9:37:00 CDT Start Date: 11/24/18 Stop Date: 11/25/18 Status: Discontinued Dextrose 50% Syringe 12.5 gm, 25 mL, Route: IVP, Drug Form: INJ, Dosing Weight 76.364, kg, PRN, PRN B lood Glucose Results, Start date: 11/24/18 9:38:00 CDT, Duration: 30 day, Stop d ate: 12/24/18 9:37:00 CDT Start Date: 11/24/18 Stop Date: 11/25/18 Status: Discontinued glucagon 1 mg, Route: IM, Drug form: PDR/INJ, PRN, Dosing Weight 76.364, kg, PRN Blood Gl ucose Results, Start date: 11/23/18 21:54:00 CDT, Duration: 30 day, Stop date: 0 12/23/18 21:53:00 CDT Start Date: 11/23/18 Stop Date: 11/25/18 Status: Discontinued glucagon 1 mg, Route: IM, Drug form: PDR/INJ, PRN, Dosing Weight 76.364, kg, PRN Blood Gl ucose Results, Start date: 11/24/18 9:38:00 CDT, Duration: 30 day, Stop date: 9:37:00 CDT Start Date: 11/24/18 Stop Date: 11/25/18 Status: Discontinued insulin lispro 5 unit, 0.05 mL, Route: SUB-Q, Drug form: SOLN, TID-Before Meals, Dosing Weight 76.364, kg, PRN Blood Glucose Results, Start date: 11/24/18 9:38:00 CDT, Duratio n: 30 day, Stop date: 12/24/18 9:37:00 CDT Notes: (Same as: Humalog ) Roll in palms of hands gently; Do not shake `trueorou sly. "Single Patient Use Only " WASTE: F/P - Black; E - Municipal Trash Bin St able for 28 days at room temperature.Expires in days from Da te Start Date: 11/24/18 Stop Date: 11/25/18 Status: Discontinued insulin lispro 4 unit, 0.04 mL, Route: SUB-Q, Drug form: SOLN, TID-Before Meals, Dosing Weight 76.364, kg, PRN Blood Glucose Results, Start date: 11/24/18 9:38:00 CDT, Duratio n: 30 day, Stop date: 12/24/18 9:37:00 CDT Notes: (Same as: Humalog ) Roll in palms of hands gently; Do not shake `vigorou sly. "Single Patient Use Only " WASTE: F/P - Black; E - Municipal Trash Bin St able for 28 days at room temperature.Expires in days from Da te Start Date: 11/24/18 Stop Date: 11/25/18 Status: Discontinued insulin lispro 3 unit, 0.03 mL, Route: SUB-Q, Drug form: SOLN, TID-Before Meals, Dosing Weight 76.364, kg, PRN Blood Glucose Results, Start date: 11/24/18 9:38:00 CDT, Duratio n: 30 day, Stop date: 12/24/18 9:37:00 CDT Notes: (Same as: Humalog ) Roll in palms of hands gently; Do not shake `vigorou sly. "Single Patient Use Only " WASTE: F/P - Black; E - Municipal Trash [facility] St able for 28 days at room temperature.Expires in days from Da te Start Date: 11/24/18 Stop Date: 11/25/18 Status: Discontinued insulin lispro 1 unit, 0.01 mL, Route: SUB-Q, Drug form: SOLN, TID-Before Meals, Dosing Weight 76.364, kg, PRN Blood Glucose Results, Start date: 11/24/18 9:38:00 CDT, Duratio n: 30 day, Stop date: 12/24/18 9:37:00 CDT Notes: (Same as: Humalog ) Roll in palms of hands gently; Do not shake `vigorou sly. "Single Patient Use Only " WASTE: F/P - Black; E - Municipal Trash [facility] St able for 28 days at room temperature.Expires in days from Da te Start Date: 11/24/18 Stop Date: 11/25/18 Status: Discontinued insulin lispro 2 unit, 0.02 mL, Route: SUB-Q, Drug form: SOLN, TID-Before Meals, Dosing Weight 76.364, kg, PRN Blood Glucose Results, Start date: 11/24/18 9:38:00 CDT, [place] n: 30 day, Stop date: 12/24/18 9:37:00 CDT Notes: (Same as: Humalog ) Roll in palms of hands gently; Do not shake `vigorou sly. "Single Patient Use Only " WASTE: F/P - Black; E - Municipal Trash Bin St able for 28 days at room temperature.Expires in days from Da te Start Date: 11/24/18 Stop Date: 11/25/18 Status: Discontinued magnesium oxide 800 mg, 2 tab, Route: PO, Drug form: TAB, PRN, Dosing Weight 76.364, kg, PRN Abn ormal Lab Result, For NON-ICU Patients Only., Start date: 11/23/18 21:53:00 CDT, Duration: 30 day, Stop date: 12/23/18 21:52:00 CDT Notes: (Same as: Mag-Ox 400)Magnesium oxide [id number] elemental magnesiumDose= ____mg magnesium oxide (___mg elemental magnesium) Start Date: 11/23/18 Stop Date: 11/25/18 Status: Discontinued magnesium sulfate 1 gm, 100 mL, Route: IVPB, Drug form: INJ, PRN, Dosing Weight 76.364, kg, PRN Ab normal Lab Result, For NON-ICU Patients Only., Start date: 11/23/18 21:53:00 CDT , Duration: 30 day, Stop date: 12/23/18 21:52:00 CDT Notes: WASTE: F/P - Sink; E - Municipal Trash Bin Start Date: 11/23/18 Stop Date: 11/25/18 Status: Discontinued magnesium sulfate 2 gm, 50 mL, Route: IVPB, Drug form: INJ, PRN, Dosing Weight 76.364, kg, PRN Abn ormal Lab Result, For NON-ICU Patients Only., Start date: 11/23/18 21:53:00 CDT, Duration: 30 day, Stop date: 12/23/18 21:52:00 CDT Notes: WASTE: F/P - Sink; E - Municipal Trash Bin Start Date: 11/23/18 Stop Date: 11/25/18 Status: Discontinued morphine Sulfate 4 mg, 1 mL, Route: IVP, Drug form: SOLN, ONCE, Dosing Weight 76.364, kg, Priorit y: STAT, Start date: 11/23/18 18:41:00 CDT, Stop date: 11/23/18 18:41:00 CDT Notes: (Same as:MORPhine Sulfate) Start Date: 11/23/18 Stop Date: 11/23/18 Status: Completed Omnipaque 300 100 mL, Route: IV, Drug Form: SOLN, Dosing Weight 76.364, kg, ONCE, Start date: 11/23/18 20:00:00 CDT, Stop date: 11/23/18 20:00:00 CDT Notes: (Same as:Omnipaque 300).WASTE: F/P - Black; E - Municipal Trash Bin Start Date: 11/23/18 Stop Date: 11/23/18 Status: Ordered ondansetron 4 mg, 2 mL, Route: IVP, Drug form: INJ, ONCE, Dosing Weight 76.364, kg, Priority : STAT, Start date: 11/23/18 18:41:00 CDT, Stop date: 11/23/18 18:41:00 CDT Notes: (Same as: Ivana) MEDICATION WASTE Product Size: 4 mgProduct Was edmar: ___ mg Start Date: 11/23/18 Stop Date: 11/23/18 Status: Completed ondansetron 4 mg, 2 mL, Route: IVP, Drug form: INJ, Q8H, Dosing Weight 76.364, kg, PRN Nause a & Vomiting, Start date: 11/23/18 21:54:00 CDT, Duration: 30 day, Stop date: 12/23/18 21:53:00 CDT Notes: (Same as: Ivana) MEDICATION WASTE Product Size: 4 mgProduct Was edmar: ___ mg Start Date: 11/23/18 Stop Date: 11/25/18 Status: Discontinued ondansetron 4 mg, 2 mL, Route: IVP, Drug form: INJ, ONCE, Dosing Weight 95.909, kg, Priority : STAT, Start date: 11/23/18 16:38:00 CDT, Stop date: 11/23/18 16:38:00 CDT Notes: (Same as: Ivana) MEDICATION WASTE Product Size: 4 mgProduct Was edmar: ___ mg Start Date: 11/23/18 Stop Date: 11/23/18 Status: Completed Pepcid 20 mg, 2 mL, Route: IVPB, Drug form: INJ, Q12H, Dosing Weight 76.364, kg, Start date: 11/24/18 9:00:00 CDT, Duration: 5 day, Stop date: 11/28/18 21:00:00 CDT Notes: (Same as: Pepcid)Can be dilute in 5-10cc NS IVP: Slow IV push over at le ast 2 minutes. Start Date: 11/24/18 Stop Date: 11/25/18 Status: Discontinued potassium chloride 20 mEq, 1 tab, Route: PO, Drug form: ERTAB, PRN, Dosing Weight 76.364, kg, PRN A bnormal Lab Result, For NON-ICU Patients Only, Start date: 11/23/18 21:53:00 CDT , Duration: 30 day, Stop date: 12/23/18 21:52:00 CDT Notes: (Same as: K-Dur 20)"Do Not Crush" Give with food and full glass of water For patients unable to swallow tablet, dissolve in one half glass of water. Allo w about 2 minutes for the tablets to disintegrate. Stir before giving to prepare slurry and administer.Please exclude Patients with feeding tube less than 14 Arabic (Dobhoff, J-tube etc) and pediatric and patients. Start Date: 11/23/18 Stop Date: 11/25/18 Status: Discontinued potassium chloride 20 mEq, 15 mL, Route: NJ, Drug form: LIQ, PRN, Dosing Weight 76.364, kg, PRN Abn ormal Lab Result, For NON-ICU Patients Only, Start date: 11/23/18 21:53:00 CDT, Duration: 30 day, Stop date: 12/23/18 21:52:00 CDT Notes: (Same as: Potassium Chloride) Start Date: 11/23/18 Stop Date: 11/25/18 Status: Discontinued potassium chloride 10 mEq, 100 mL, Route: IVPB, Drug form: INJ, PRN, Dosing Weight 76.364, kg, PRN Abnormal Lab Result, For NON-ICU Patients Only, Start date: 11/23/18 21:53:00 CD T, Duration: 30 day, Stop date: 12/23/18 21:52:00 CDT Notes: Infuse at a rate of 10 mEq/hr.(Same as: KCL) Start Date: 11/23/18 Stop Date: 11/25/18 Status: Discontinued potassium phosphate + Sodium Chloride 0.9% IV 250 mL 15 mmol, 5 mL, Route: IVPB, PRN, Dosing Weight 76.364, kg, PRN Abnormal Lab Resu lt, For NON-ICU Patients Only., Start date: 11/23/18 21:53:00 CDT, Duration: 30 day, Stop date: 12/23/18 21:52:00 CDT Notes: (Same as: K Phosphate.)Do not infuse phosphorous concurrently in the same line as TPN or IVF that contains calcium. For double lumen central lines, phosp horous may be infused in a separate lumen from TPN. 1 mMol phoshate has 1.47 mE q potassium Infuse over 4 hours Start Date: 11/23/18 Stop Date: 11/25/18 Status: Discontinued potassium phosphate + Sodium Chloride 0.9% IV 250 mL 30 mmol, 10 mL, Route: IVPB, PRN, Dosing Weight 76.364, kg, PRN Abnormal Lab Res ult, For NON-ICU Patients Only., Start date: 11/23/18 21:53:00 CDT, Duration: 30 day, Stop date: 12/23/18 21:52:00 CDT Notes: (Same as: K Phosphate.)Do not infuse phosphorous concurrently in the same line as TPN or IVF that contains calcium. For double lumen central lines, phosp horous may be infused in a separate lumen from TPN. 1 mMol phoshate has 1.47 mE q potassium Infuse over 4 hours Start Date: 11/23/18 Stop Date: 11/25/18 Status: Discontinued potassium phosphate-sodium phosphate 250 mg-280 mg-160 mg oral powder for recons titution 2 pkt, Route: PO, Drug Form: PDR/REC, Dosing Weight 76.364, kg, PRN, PRN Abnorma l Lab Result, For NON-ICU Patients Only, Start date: 11/23/18 21:53:00 CDT, Dura tion: 30 day, Stop date: 12/23/18 21:52:00 CDT Notes: (Same as: Phos-NaK) Each 1.5 gm pkt has 250mg phosphorous. Mix w/2.5oz w ater and stir. Start Date: 11/23/18 Stop Date: 11/25/18 Status: Discontinued Saline Flush 0.9% 10 mL, Route: IVP, Drug Form: INJ, Dosing Weight 95.909, kg, PRN, PRN Line Flush , Start date: 11/23/18 16:38:00 CDT, Duration: 30 day, Stop date: 12/23/18 16:37 :00 CDT Notes: (Same as: BD Posiflush) Start Date: 11/23/18 Stop Date: 11/25/18 Status: Discontinued Sodium Chloride 0.9% (Bolus) IV 1,000 mL, 1000 ml/hr, Infuse Over: 1 hr, Route: IV, 1,000, Drug form: INJ, ONCE, Priority: STAT, Dosing Weight 95.909 kg, Start date: 11/23/18 16:38:00 CDT, Stop date: 11/23/18 16:38:00 CDT Start Date: 11/23/18 Stop Date: 11/23/18 Status: Completed sodium phosphate + Sodium Chloride 0.9% IV 250 mL 15 mmol, 5 mL, Route: IVPB, PRN, Dosing Weight 76.364, kg, PRN Abnormal Lab Resu lt, For NON-ICU Patients Only., Start date: 11/23/18 21:53:00 CDT, Duration: 30 day, Stop date: 12/23/18 21:52:00 CDT Notes: Infuse over 4 hour. Do not infuse phosphorous concurrently in the same li ne as TPN or IVF that contains calcium. For double lumen central lines, phosphor ous may be infused in a separate lumen from TPN. Start Date: 11/23/18 Stop Date: 11/25/18 Status: Discontinued sodium phosphate + Sodium Chloride 0.9% IV 250 mL 30 mmol, 10 mL, Route: IVPB, PRN, Dosing Weight 76.364, kg, PRN Abnormal Lab Res ult, For NON-ICU Patients Only., Start date: 11/23/18 21:53:00 CDT, Duration: 30 day, Stop date: 12/23/18 21:52:00 CDT Notes: Infuse over 4 hour. Do not infuse phosphorous concurrently in the same li ne as TPN or IVF that contains calcium. For double lumen central lines, phosphor ous may be infused in a separate lumen from TPN. Start Date: 11/23/18 Stop Date: 11/25/18 Status: Discontinued Results ELECTROLYTES Most recent to 1 2 oldest [Reference Range]: Sodium Lvl [135-145 138 mEq/L mEq/L] (11/23/18 5:20 PM) Potassium Lvl 4.4 mEq/L [3.5-5.1 mEq/L] (11/23/18 5:20 PM) Chloride Lvl [95-109 102 mEq/L mEq/L] (11/23/18 5:20 PM) CO2 [24-32 mEq/L] 29 mEq/L (11/23/18 5:20 PM) AGAP [10.0-20.0 11.4 mEq/L mEq/L] (11/23/18 5:20 PM) CHEM PANEL Most recent to 1 2 oldest [Reference Range]: Creatinine Lvl 0.96 mg/dL [0.50-1.40 mg/dL] (11/23/18 5:20 PM) eGFR 62 mL/min/1.73m2 1 *NA* (11/23/18 5:20 PM) BUN [7-22 mg/dL] 20 mg/dL (11/23/18 5:20 PM) B/C Ratio [6-25] 21 (11/23/18 5:20 PM) Glucose Lvl [70-99 92 mg/dL mg/dL] (11/23/18 5:20 PM) Total Protein 7.5 g/dL [6.4-8.4 g/dL] (11/23/18 5:20 PM) Albumin Lvl [3.5-5.0 3.6 g/dL g/dL] (11/23/18 5:20 PM) Globulin [2.7-4.2 3.9 g/dL g/dL] (11/23/18 5:20 PM) A/G Ratio [0.7-1.6] 0.9 (11/23/18 5:20 PM) Calcium Lvl 9.2 mg/dL [8.5-10.5 mg/dL] (11/23/18 5:20 PM) ALT [0-65 unit/L] 34 unit/L (11/23/18 5:20 PM) AST [0-37 unit/L] 20 unit/L (11/23/18 5:20 PM) Alk Phos [39-136 99 unit/L unit/L] (11/23/18 5:20 PM) Bili Total [0.2-1.3 0.5 mg/dL mg/dL] (11/23/18 5:20 PM) Lipase Lvl [73-393 50 unit/L unit/L] *LOW* (11/23/18 5:20 PM) Procalcitonin Lvl <0.05 ng/mL [0.00-0.10 ng/mL] (11/24/18 10:05 AM) 1Result Comment: The eGFR is calculated [...] URINE AND STOOL Most recent to 1 2 oldest [Reference Range]: UA Turbidity [Clear] Clear (11/23/18 5:23 PM) UA Color [Yellow] Yellow *NA* (11/23/18 5:23 PM) UA pH [5.0-8.0] 5.0 (11/23/18 5:23 PM) UA Spec Grav 1.018 [<=1.030] (11/23/18 5:23 PM) UA Glucose Negative [Negative] *NA* (11/23/18 5:23 PM) UA Blood [Negative] Small *ABN* (11/23/18 5:23 PM) UA Ketones Negative *NA* (11/23/18 5:23 PM) UA Protein Negative [Negative] (11/23/18 5:23 PM) UA Urobilinogen <=1.0 mg/dL [0.1-1.0 mg/dL] *NA* (11/23/18 5:23 PM) UA Bili [Negative] Negative *NA* (11/23/18 5:23 PM) UA Leuk Est Moderate [Negative] *ABN* (11/23/18 5:23 PM) UA Nitrite Negative [Negative] (11/23/18 5:23 PM) UA WBC [0-5 /HPF] 17 /HPF *HI* (11/23/18 5:23 PM) UA RBC [0-2 /HPF] 3 /HPF *HI* (11/23/18 5:23 PM) UA Sq Epi [Few /LPF] Occasional /LPF *NA* (11/23/18 5:23 PM) UA Mucus [None Seen Few /LPF /LPF] *NA* (11/23/18 5:23 PM) HEMATOLOGY Most recent to 1 2 oldest [Reference Range]: WBC [3.7-10.4 K/CMM] 10.1 K/CMM 15.0 K/CMM (11/24/18 10:05 AM) *HI* (11/23/18 5:20 PM) RBC [4.20-5.40 4.60 M/CMM 4.70 M/CMM M/CMM] (11/24/18 10:05 AM) (11/23/18 5:20 PM) Hgb [12.0-16.0 g/dL] 14.4 g/dL 14.4 g/dL (11/24/18 10:05 AM) (11/23/18 5:20 PM) Hct [36.0-48.0 %] 43.1 % 44.3 % (11/24/18 10:05 AM) (11/23/18 5:20 PM) MCV [80.0-98.0 fL] 93.9 fL 94.3 fL (11/24/18 10:05 AM) (11/23/18 5:20 PM) MCH [27.0-31.0 pg] 31.4 pg 30.7 pg *HI* (11/23/18 5:20 PM) (11/24/18 10:05 AM) MCHC [32.0-36.0 33.4 g/dL 32.6 g/dL g/dL] (11/24/18 10:05 AM) (11/23/18 5:20 PM) RDW [11.5-14.5 %] 14.1 % 13.8 % (11/24/18 10:05 AM) (11/23/18 5:20 PM) MPV [7.4-10.4 fL] 8.9 fL 8.9 fL (11/24/18 10:05 AM) (11/23/18 5:20 PM) Platelet [133-450 251 K/CMM 267 K/CMM K/CMM] (11/24/18 10:05 AM) (11/23/18 5:20 PM) Segs [45.0-75.0 %] 72.7 % 69.5 % (11/24/18 10:05 AM) (11/23/18 5:20 PM) Lymphocytes 19.8 % 23.4 % [20.0-40.0 %] *LOW* (11/23/18:20 PM) (11/24/18 10:05 AM) Monocytes [2.0-12.0 5.1 % 5.1 % %] (11/24/18 10:05 AM) (11/23/18 5:20 PM) Eosinophils [0.0-4.0 1.6 % 1.3 % %] (11/24/18 10:05 AM) (11/23/18 5:20 PM) Basophils [0.0-1.0 0.8 % 0.7 % %] (11/24/18 10:05 AM) (11/23/18 5:20 PM) Neutrophils # 7.4 K/CMM 10.4 K/CMM [1.5-8.1 K/CMM] (11/24/18 10:05 AM) *HI* (11/23/18 5:20 PM) Lymphocytes # 2.0 K/CMM 3.5 K/CMM [1.0-5.5 K/CMM] (11/24/18 10:05 AM) (11/23/18 5:20 PM) Monocytes # [0.0-0.8 0.5 K/CMM 0.8 K/CMM K/CMM] (11/24/18 10:05 AM) (11/23/18 5:20 PM) Eosinophils # 0.2 K/CMM 0.2 K/CMM [0.0-0.5 K/CMM] (11/24/18 10:05 AM) (11/23/18 5:20 PM) Basophils # [0.0-0.2 0.1 K/CMM 0.1 K/CMM K/CMM] (11/24/18 10:05 AM) (11/23/18 5:20 PM) Microbiology Reports TEST: Culture: Urine STATUS: Auth (Verified) BODY SITE: SOURCE: Urine, Clean Catch COLLECTED DATE/TIME: 11/23/18 5:23 PM FINAL REPORT 10,000 - 50,000 CFU/mL Skin Sharita Immunizations No data available for this section [...]
--- OUTSIDE RECORDS SUMMARY | 2018-12-22 09:12 | XMS REPORT | Summary of Care ---
Author Author [facility] Organization [facility] Address Unknown Phone Unavailable Encounter HQ Encntr_alias(FIN) [id number] Date(s): 10/18/16 - 10/18/16 [facility] [address] [place] [id number]- Discharge Disposition: Home or Self Care Attending [...]
--- NOTE | 2018-12-22 12:53 | Progress Note ---
DATE: 12/22/2018 SUBJECTIVE: The patient's pain is under control. At this time, she is on a WIRE SAWYER pump. She is status post day #1 repair of large ventral hernia with intra-abdominal placement of a tissue mesh. OBJECTIVE: VITAL SIGNS: Stable. ABDOMEN: Obese. The dressing is dry. The Jovanni-Hudson drain is draining serosanguineous fluid. Cárdenas is in situ draining clear urine with good output. Labs are noted and they are within gross normal parameters. ASSESSMENT: 1. Postop day #1 status post repair of large ventral hernia with intra-abdominal placement of mesh. 2. Obesity. 3. The patient is stable. PLAN: The plan is to start mobilizing the patient, start and resume her antihypertensive medicines and tomorrow we will remove the Cárdenas and start giving her liquids and try to send her home once she is tolerating p.o. well and we can wean her out of the WIRE SAWYER. MD SOFÍA Newell/ANISH /[phone]
[2018-12-22] MEDS: LOSARTAN POTASSIUM 100 MG TAB PO SCH (13:22)
[2018-12-22] MEDS ORDERED: LORAZEPAM 0.5 MG TAB PO PRN (15:45)
[2018-12-22] MEDS: PANTOPRAZOLE 40 MG 10ML VIAL IV SCH (21:44)
[2018-12-23] VITALS (7 sets, daily range): BP systolic 125–145; BP diastolic 60–66
[2018-12-23] MEDS: SODIUM CHLORIDE 0.9% 1000ML 1,000 ML IV SCH ×3 (03:05→21:56)
[2018-12-23 05:27] LABS: BASOPHILS # (AUTO) 0.1 (0.0-0.1); BASOPHILS % 0.6 % (0.0-1.0); EOSINOPHILS # (AUTO) 0.2 (0.0-0.4); EOSINOPHILS % 1.7 % (0.0-6.0); HEMATOCRIT 36.9 % (34.2-44.1); HEMOGLOBIN 11.7 g/dL (12.0-16.0); LYMPHOCYTES # (AUTO) 2.8 (1.0-3.2); LYMPHOCYTES % 22.6 % (18.0-39.1); MEAN CORPUSCULAR HEMOGLOBIN 30.7 pg (28-32); MEAN CORPUSCULAR HGB CONC 31.7 g/dL (31-35); MEAN CORPUSCULAR VOLUME 96.9 fL (81-99); MONOCYTES # (AUTO) 0.8 (0.2-0.8); MONOCYTES % 6.7 % (4.4-11.3); NEUTROPHILS # (AUTO) 8.4 (2.1-6.9); NEUTROPHILS % 67.9 % (38.7-80.0); PLATELET COUNT 216 x10e3/uL (140-360); RED BLOOD COUNT 3.81 x10e6/uL (3.6-5.1); RED CELL DISTRIBUTION WIDTH 14.1 % (11.7-14.4)
[2018-12-23 05:50] LABS: ANION GAP 10.3 mmol/L (8-16); BLOOD UREA NITROGEN 14 mg/dL (7-26); BUN/CREATININE RATIO 18 (6-25); CALCIUM 8.3 mg/dL (8.4-10.2); CARBON DIOXIDE 28 mmol/L (22-29); CHLORIDE 106 mmol/L (98-107); EST GLOMERULAR FILTRATION RATE > 60 ML/MIN (60-); GLUCOSE 112 mg/dL (74-118); POTASSIUM 4.3 mmol/L (3.5-5.1); SODIUM 140 mmol/L (136-145)
[2018-12-23] MEDS: INSULIN REGULAR, HUMAN 100 UNIT/1 ML 3ML VIAL SQ SCH ×4 (06:00→17:19)
[2018-12-23] MEDS: HYDROMORPHONE 0.2MG/ML-SOD CHL 30ML PCA SYRINGE IV PRN (08:05)
[2018-12-23] MEDS: ONDANSETRON HCL INJ 2MG/ML 2ML 2 MG/ML VIAL IV PRN ×3 (08:10→18:49)
[2018-12-23] MEDS: LOSARTAN POTASSIUM 100 MG TAB PO SCH (10:11)
--- NOTE | 2018-12-23 10:52 | NUR ---
ASSISTED PT TO CHAIR AT THIS TIME.
[2018-12-23] MEDS ORDERED: ACETAMINOPHEN 1000 MG/100 ML IV PRN (12:00)
[2018-12-23] MEDS: HYDROMORPHONE 2MG/ML 2 MG/ML ML IV PRN ×2 (12:50→17:19)
[2018-12-23] MEDS: HYDROCODONE/APAP 7.5MG-325MG 1 EA TAB PO PRN ×2 (15:24→21:48)
--- NOTE | 2018-12-23 19:54 | NUR ---
Received change of shift report from AM nurse. Walking rounds completed.
[2018-12-23] MEDS: PANTOPRAZOLE 40 MG 10ML VIAL IV SCH (20:15)
[2018-12-24] VITALS (8 sets, daily range): BP systolic 122–161; BP diastolic 60–85
[2018-12-24 05:40] LABS: BASOPHILS # (AUTO) 0.1 (0.0-0.1); BASOPHILS % 0.7 % (0.0-1.0); EOSINOPHILS # (AUTO) 0.2 (0.0-0.4); EOSINOPHILS % 2.1 % (0.0-6.0); HEMATOCRIT 33.6 % (34.2-44.1); HEMOGLOBIN 10.8 g/dL (12.0-16.0); LYMPHOCYTES # (AUTO) 2.3 (1.0-3.2); LYMPHOCYTES % 22.9 % (18.0-39.1); MEAN CORPUSCULAR HEMOGLOBIN 30.4 pg (28-32); MEAN CORPUSCULAR HGB CONC 32.1 g/dL (31-35); MEAN CORPUSCULAR VOLUME 94.6 fL (81-99); MONOCYTES # (AUTO) 0.6 (0.2-0.8); NEUTROPHILS # (AUTO) 6.9 (2.1-6.9); PLATELET COUNT 187 x10e3/uL (140-360); RED BLOOD COUNT 3.55 x10e6/uL (3.6-5.1); RED CELL DISTRIBUTION WIDTH 13.6 % (11.7-14.4)
[2018-12-24 05:51] LABS: ANION GAP 9.7 mmol/L (8-16); BLOOD UREA NITROGEN 11 mg/dL (7-26); BUN/CREATININE RATIO 15 (6-25); CALCIUM 8.3 mg/dL (8.4-10.2); CARBON DIOXIDE 25 mmol/L (22-29); CHLORIDE 108 mmol/L (98-107); CREATININE, SERUM 0.73 mg/dL (0.57-1.11); EST GLOMERULAR FILTRATION RATE > 60 ML/MIN (60-); GLUCOSE 108 mg/dL (74-118); POTASSIUM 3.7 mmol/L (3.5-5.1); SODIUM 139 mmol/L (136-145)
[2018-12-24] MEDS: INSULIN REGULAR, HUMAN 100 UNIT/1 ML 3ML VIAL SQ SCH ×4 (06:00→18:00)
--- NOTE | 2018-12-24 06:00 | NUR ---
Patient resting quitly at this time.
--- NOTE | 2018-12-24 07:26 | NUR ---
RECEIVED PATIENT AWAKE RESTING IN BED AT THIS TIME. NO SIGNS OF DISTRESS. BED LOW, WHEELS LOCKED, SIDE RAILS X2. CALL LIGHT IN REACH WILL CONTINUE TO MONITOR PATIENT.
[2018-12-24] MEDS: LOSARTAN POTASSIUM 100 MG TAB PO SCH (08:01)
[2018-12-24] MEDS: SODIUM CHLORIDE 0.9% 1000ML 1,000 ML IV SCH ×2 (08:01→16:47)
[2018-12-24] MEDS: HYDROCODONE/APAP 7.5MG-325MG 1 EA TAB PO PRN ×4 (08:32→21:50)
--- NOTE | 2018-12-24 10:35 | NUR ---
PATIENT AMBULATED 60 FEET WITH PT. PATIENT SITTING IN CHAIR AT THIS TIME, CALL LIGHT IN REACH. DAUGHTER AT BEDSIDE. WILL CONTINUE TO MONITOR PATIENT.
--- NOTE | 2018-12-24 10:43 | NUR ---
ASSISTED PATIENT BACK TO BED. NO SIGNS OF DISTRESS, PATIENT IN STABLE CONDITION.
--- NOTE | 2018-12-24 10:45 | NUR ---
REMOVED PATIENTS WADE. CATHETER TIP INTACT ON REMOVAL. PATIENT DUE TO VOID.
--- NOTE | 2018-12-24 12:00 | NUR ---
PATIENT HAS VOIDED SINCE WADE REMOVAL.
--- NOTE | 2018-12-24 14:00 | NUR ---
PATIENT AMBULATED IN [place] WITH DAUGHTER. STEADY GAIT, NO SIGNS OF DISTRESS. WILL CONTINUE TO MONITOR PATIENT.
[2018-12-24] MEDS: PANTOPRAZOLE 40 MG 10ML VIAL IV SCH (20:46)
[2018-12-24] MEDS ORDERED: BISACODYL 10 MG SUPP PR ONE (21:00)
[2018-12-25] VITALS: BP 123/55
[2018-12-25 04:00] VITALS: BP 135/65
[2018-12-25] MEDS: SODIUM CHLORIDE 0.9% 1000ML 1,000 ML IV SCH ×2 (04:15→13:27)
[2018-12-25] MEDS: HYDROCODONE/APAP 7.5MG-325MG 1 EA TAB PO PRN ×3 (05:00→14:02)
[2018-12-25] MEDS: INSULIN REGULAR, HUMAN 100 UNIT/1 ML 3ML VIAL SQ SCH ×3 (06:00→11:59)
--- NOTE | 2018-12-25 06:40 | NUR ---
Patient stated she passed small amount of stool.
--- NOTE | 2018-12-25 07:34 | NUR ---
RECEIVED PATIENT RESTING IN BED NO SIGNS OF DISTRESS AT THIS TIME. BED LOW, WHEELS LOCKED, SIDE RAILS X2. DAUGHTER AT BEDSIDE. CALL LIGHT IN REACH WILL CONTINUE TO MONITOR PATIENT.
[2018-12-25 08:43] VITALS: BP 150/71
[2018-12-25 08:48] VITALS: BP 150/71
[2018-12-25] MEDS: LOSARTAN POTASSIUM 100 MG TAB PO SCH (08:48)
[2018-12-25] MEDS ORDERED: BISACODYL 10 MG SUPP PR ONE (09:00)
--- NOTE | 2018-12-25 10:17 | NUR ---
PATIENT A/O X3, EVEN RESPIRATIONS ON RA. BOWEL SOUNDS ACTIVE, PATIENT PASSING GAS. ABDOMINAL DRESSING DRY AND INTACT WITH ABDOMINAL BINDER IN PLACE. RIGHT HAND 20 GAUGE IV KVO @ 5 CC/HR. PATIENT TOLERATING REGULAR DIET. DIMA DRAIN INTACT. SCD's IN PLACE BILATERALLY. VITAL SIGNS STABLE WILL CONTINUE TO MONITOR PATIENT.
[2018-12-25 11:48] VITALS: BP 165/73
--- NOTE | 2018-12-25 12:58 | NUR ---
PROVIDED WALKER PER DME ORDER, GOT GREEN SHEET SIGNED BY PT AND DOCTOR AND PUT IN PACU FOR FILING.
[2018-12-25] MEDS ORDERED: NORCO 7.5-3251 EACH PO (13:13)
[2018-12-25] MEDS ORDERED: KEFLEX500 MG PO (13:14)
--- NOTE | 2018-12-25 14:25 | NUR ---
REMOVED PATIENTS IV. CATHETER TIP INTACT AND PRESSURE DRESSING APPLIED.
--- NOTE | 2018-12-25 15:10 | NUR ---
Patient discharged from facility. patient gathered all personal belongings, discharge instructions, follow up information and prescriptions. Left unit in wheelchair and went home via private auto. No signs of distress when leaving facility.
== END 2018-12-25 15:10 | disposition home or self-care (01) | DRG 337 ==
LOC: OR 08:51 → MED/SURG 18:12 → OR 18:12 → MED/SURG 19:11
PROVIDERS: ADMIT Surgery; ATTEND Surgery
PROC: 0DNW0ZZ Release Peritoneum, Open Approach (ICD-10-PCS; 2018-12-21)
PROC: 0TNB0ZZ Release Bladder, Open Approach (ICD-10-PCS; 2018-12-21)
PROC: 0WUF0JZ Supplement Abdominal Wall with Synthetic Substitute, Open Approach (ICD-10-PCS; principal; 2018-12-21 15:09)
DX: K43.2 Incisional hernia without obstruction or gangrene (principal); K66.0 Peritoneal adhesions (postprocedural) (postinfection); Z01.810 Encounter for preprocedural cardiovascular examination; Z01.812 Encounter for preprocedural laboratory examination; Z01.811 Encounter for preprocedural respiratory examination; Z88.2 Allergy status to sulfonamides; G47.33 Obstructive sleep apnea (adult) (pediatric); I10 Essential (primary) hypertension; E11.9 Type 2 diabetes mellitus without complications; E66.9 Obesity, unspecified; Z68.38 Body mass index [BMI] 38.0-38.9, adult; F41.9 Anxiety disorder, unspecified
CPT/HCPCS: 36415; 71046; 80048; 82948; 85025; 93005; 97139; J0690; J1100; J1885; J2001; J2405; J7030